=== PATIENT | male | born 1945 | race Two or more races ===

== ENCOUNTER 2020-09-09 09:52 | Outpatient (REF) | payer MEDICARE, SELFPAY ==
[2020-09-09 11:01] LABS: Estimated Average Glucose 103 mg/dL; Hemoglobin A1c % 5.2 %
[2020-09-09 11:21] LABS: Alanine Aminotransferase 14 U/L (0-40); Alkaline Phosphatase 58 U/L (39-117); Anion Gap 9 (12-20); Aspartate Amino Transferase 20 U/L (5-37); Bilirubin Total 0.8 mg/dL (0.0-1.0); Blood Urea Nitrogen 18 mg/dL (9-16); Calcium 9.2 mg/dL (8.4-10.2); Carbon Dioxide 30 mmol/L (22-29); Chloride 104 mmol/L (96-108); Estimated Glomerular Filt Rate > 60; Glucose Fasting 100 mg/dL (60-99); Potassium 5.1 mmol/l (3.3-5.1); Sodium 138 mmol/L (135-145); Total Protein 7.2 g/dL (6.5-8.0)
== END 2020-09-09 09:53 | disposition home or self-care (01) ==
LOC: HO.LAB 09:52
PROVIDERS: PCP Internal Medicine; Visit Provider Internal Medicine
DX: N40.0 Benign prostatic hyperplasia without lower urinary tract symptoms (principal); J45.909 Unspecified asthma, uncomplicated; E78.00 Pure hypercholesterolemia, unspecified; R73.01 Impaired fasting glucose
CPT/HCPCS: 80053; 83036

== ENCOUNTER 2020-10-15 13:25 | Outpatient (REF) | payer MEDICARE, SELFPAY | END 2020-10-15 13:26 | disposition home or self-care (01) | LOC: HO.HMGCLDS 13:25 | PROVIDERS: PCP Internal Medicine; Visit Provider Internal Medicine | DX: Z20.828 Contact with and (suspected) exposure to other viral communicable diseases (principal) | CPT/HCPCS: C9803; U0003 ==

== ENCOUNTER 2021-02-18 11:28 | Outpatient (REF) | payer MEDICARE, SELFPAY ==
--- NOTE | ~2021-02-18 | XR_ITS ---
EXAMINATION: XR KNEE, RIGHT CLINICAL INFORMATION: Arthritis COMPARISON: Previous x-ray February 2019 TECHNIQUE: Four views of the right knee. FINDINGS: Bone alignment is normal. No fracture or dislocation is seen. There is arthritis at the medial femoral tibial and patellofemoral joints with joint space narrowing and osteophyte formation. There is a small joint effusion. There is mild soft tissue arterial calcification. XR/XR knee RT 3V IMPRESSION: Mild arthritis similar to previous exam.
== END 2021-02-18 11:29 | disposition home or self-care (01) ==
LOC: HO.XRAY 11:28
PROVIDERS: PCP Internal Medicine; Visit Provider Physician Assistant
DX: M17.11 Unilateral primary osteoarthritis, right knee (principal)
CPT/HCPCS: 73562

== ENCOUNTER 2022-10-27 09:56 | Outpatient (REF) | payer MEDICARE, SELFPAY ==
--- NOTE | 2022-10-27 10:04 | ECG_ITS ---
Test Reason : PRE OP Blood Pressure : / mmHG Vent. Rate : 048 BPM Atrial Rate : 048 BPM P-R Int : 176 ms QRS Dur : 082 ms QT Int : 446 ms P-R-T Axes : 084 -10 270 degrees QTc Int : 398 ms Sinus bradycardia T wave abnormality, consider inferolateral ischemia Abnormal ECG When compared with ECG of 28-FEB-2017 15:22, T wave inversion now evident in Inferior leads T wave inversion now evident in Lateral leads Referred By: Karen South Electronically Signed By:MARKIE ELIZABETH MD
[2022-10-27 10:34] LABS: Basophils Percent Auto 0.4 % (0-2); Eosinophils Absolute Auto 0.1 X10*3/uL (0.0-0.4); Eosinophils Percent Auto 0.6 % (0-4); Hemoglobin 13.4 g/dl (14.0-18.0); Imm Gran Abs Auto 0.03 X10*3/uL (0.00-0.03); Imm Gran Pct Auto 0.4 % (0.0-0.4); MANUAL DIFF FLAG SCAN; Mean Corpuscular HGB Conc 31.5 g/dl (31.0-36.0); PLT CLUMP 1; Red Cell Distribution Width 12.5 % (11.0-16.0); SCAN SMEAR FLAG 1
[2022-10-27 10:36] LABS: Hematocrit 42.6 % (42.0-52.0); Lymphocytes Absolute Auto 1.2 X10*3/uL (1.2-4.9); Lymphocytes Percent Auto 14.9 % (20-40); Mean Corpuscular Hemoglobin 28.5 pg (27.0-33.0); Mean Corpuscular Volume 90.6 fL (80.0-98.0); Mean Platelet Volume 10.9 fL (9.4-12.4); Monocytes Absolute Auto 0.8 X10*3/uL (0.1-1.2); Neutrophils Percent Auto 73.7 % (45-73)
[2022-10-27 11:03] LABS: Platelet Count 199 X10*3/uL (160-400)
[2022-10-27 11:04] LABS: SLIDE REVIEW VERIFIED; White Blood Count 8.1 X10*3/uL (4.8-10.8)
[2022-10-27 11:05] LABS: Anion Gap 15 (12-20); Blood Urea Nitrogen 24 mg/dL (9-16); Calcium 9.8 mg/dL (8.4-10.2); Carbon Dioxide 27 mmol/L (22-29); Chloride 101 mmol/L (96-108); Estimated Glomerular Filt Rate > 60; Glucose Random 90 mg/dL (60-115); Potassium 4.8 mmol/L (3.3-5.1); Sodium 138 mmol/L (135-145)
== END 2022-10-27 09:57 | disposition home or self-care (01) ==
LOC: HO.LAB 09:56
PROVIDERS: PCP Internal Medicine; Visit Provider Nurse Practitioner Family
DX: Z01.818 Encounter for other preprocedural examination (principal); Z13.0 Encounter for screening for diseases of the blood and blood-forming organs and certain disorders involving the immune mechanism
CPT/HCPCS: 36415; 80048; 85025; 85610; 93005

== ENCOUNTER 2022-11-01 07:59 | Outpatient (REF) | payer OTHER, SELFPAY ==
[2022-11-01 08:48] LABS: COVID-19 Test Negative (Negative); IDNOW Serial# 16C4AD1C
== END 2022-11-01 08:00 | disposition home or self-care (01) ==
LOC: HO.LAB 07:59
PROVIDERS: Internal Medicine; PCP Internal Medicine; Visit Provider Nurse Practitioner Family
DX: Z20.822 Contact with and (suspected) exposure to COVID-19 (principal)
CPT/HCPCS: 87635; C9803

== ENCOUNTER → 2022-12-02 09:18 | Outpatient (REF) | payer OTHER, SELFPAY ==
--- NOTE | 2022-12-02 09:23 | CA_ITS ---
Acquisition Time: 2022-12-02 09:45:42 Total Exercise Time: 00:06:19 Test Indications: ABN EKG Medications: SEE CHART Protocol: COLLINS Max HR: 139 BPM 97% of Pred: 142 BPM Max BP: 162/066 mmHG Max Work Load: 7.4 METS Exercise stress test with exercise 6 min 19 sec of Collins protocol, achieving 97% MPHR, 7.4 METs, without anginal symptoms, with isolated PVC, with normotensive response to exercise, with T wave inversion V5-V6 at baseline which is present throughout test, borderline ST depression in those leads at peak not excluded. No other changes indicating ischemia. If further evaluation for ischemia is warranted, then recommned an exercise nuclear stress test. Test reviewed with Dr Gray Referred By: Karen South Overread By: JESSY LEE
== END ==
LOC: HO.CARD 09:18
PROVIDERS: Visit Provider Nurse Practitioner Family
DX: R94.31 Abnormal electrocardiogram [ECG] [EKG] (principal)
CPT/HCPCS: 93017

== ENCOUNTER → 2022-12-28 09:08 | Outpatient (BNVA) | payer OTHER, SELFPAY | PROVIDERS: PCP Internal Medicine; Referring Provider Internal Medicine; Visit Provider Internal Medicine | DX: R94.31 Abnormal electrocardiogram [ECG] [EKG] (principal); R94.39 Abnormal result of other cardiovascular function study | CPT/HCPCS: 99202 ==

== ENCOUNTER → 2023-01-05 08:12 | Outpatient (REF) | payer OTHER, SELFPAY ==
--- NOTE | ~2023-01-05 | NM_ITS ---
EXERCISE MYOCARDIAL PERFUSION STUDY INDICATION: Abnormal EKG, assess for coronary disease and ischemia TECHNIQUE: The patient was brought in for an exercise perfusion study on 01/05/2023. Patient performed exercise as per [facility] protocol and was injected 25 mCi of sestamibi once target heart rate was achieved. Images were obtained using the SPECT gamma camera interlaced with the gating device. Images were obtained in supine position. Resting perfusion study was performed on 01/06/2023. Patient was administered 25 mCi of sestamibi intravenously at rest. Images were then obtained in supine position. Images were processed with the software and compared side to side in short axis, horizontal long axis and vertical long axis views. Total DLP 81mGy-cm. FINDINGS: Raw images were reviewed. The stress perfusion study showed mildly diminished tracer uptake along the inferolateral wall. There is improvement with CT attenuation correction suggestive of diaphragmatic attenuation artifact. The gated study shows mildly diminished LV systolic function with calculated LVEF of 48%. LV cavity is normal in size. The gated study shows normal wall thickening and contraction of segments. Resting study shows mildly diminished tracer uptake along the inferolateral wall. With CT attenuation corrected, there is improvement suggesting diaphragmatic attenuation artifact. Gating at rest reveals normal wall motion with ejection fraction at 66%. The findings are consistent with no clear reversible or fixed perfusion defects. NM/NM cardiolite stress test IMPRESSION: 1. Myocardial perfusion imaging study shows likely normal myocardial perfusion. 2. Gated LVEF is 48% during stress and 64% during rest. Correlate with echocardiogram. 3. Transient ischemic dilatation not present. EKG component of the test reported separately.
--- NOTE | 2023-01-05 09:31 | CA_ITS ---
Acquisition Time: 2023-01-05 08:27:01 Total Exercise Time: 00:07:00 Test Indications: abn ekg, abn ett Medications: see chart Protocol: COLLINS Max HR: 129 BPM 90% of Pred: 142 BPM Max BP: 170/056 mmHG Max Work Load: 8.5 METS Exercise stress test with exercise 7 min of Collins protocol, achieving 90% MPHR, 8.5 METs, without anginal symptoms, with isolated PVCs, with normotenive response to exercise, with baseline EKGs showing ST/T wave abnormality inferiorly and slight T inversions V5-V6 then at peak exercise there is up to [address] depression inferiorly - nondiagnostic for ischemia due to baseline abn. Nuclear images pending. Test reviewed with Dr Rodriguez Referred By: Buck Gray Overread By: JESSY LEE
== END ==
LOC: HO.CARD 08:12
PROVIDERS: Visit Provider Internal Medicine
DX: R07.2 Precordial pain (principal); R94.31 Abnormal electrocardiogram [ECG] [EKG]
CPT/HCPCS: 78452; 93017; A9500

== ENCOUNTER → 2023-01-19 08:05 | Outpatient (REF) | payer OTHER, SELFPAY ==
--- NOTE | 2023-01-19 08:07 | CA_ITS ---
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 Study Quality: Adequate ECG Rhythm: Bradycardia Conclusions: - The left ventricular systolic function is normal. The calculated ejection fraction is 60% by biplane method. - No obvious valvular pathology seen on this study. - There is mild dilatation of the ascending aorta measuring 4.20 cm. Findings Left Ventricle Normal left ventricular cavity size. The left ventricular systolic function is normal. The calculated ejection fraction is 60% by biplane method. There is no evidence of regional wall motion abnormalities. Diastolic function is normal for age. There is mild septal asymmetric hypertrophy. LV peak GLS 18.7%. Right Ventricle Normal right ventricular cavity size and systolic function. Atria Both atria are normal in size. Aortic Valve There is a normal trileaflet aortic valve. There is no aortic valve stenosis. There is no aortic valve regurgitation. Mitral Valve The mitral valve appears normal. There is no mitral valve regurgitation. There is no mitral valve stenosis. Pulmonic Valve The pulmonic valve is likely normal. Tricuspid Valve There is trace tricuspid valve regurgitation. There is no evidence of pulmonary hypertension. Great Vessels There is mild dilatation of the ascending aorta measuring 4.20 cm. Venous The inferior vena cava is normal in size and collapses greater than 50% with inspiration. Pericardium/Pleural There is no evidence of pericardial effusion. Prior Study Comparison Changes noted compared to prior study dated: 05/20/2011. Increase in ascending aortic size. Recommendations, Care & Conclusions No obvious valvular pathology seen on this study. Measurements 2D Linear Measurements IVSd: 1.29 0.6-0.9/0.6-1.0 cm LVIDd: 4.62 3.9-5.3/4.2-5.9 cm LVIDd Index: 2.85 2.4-3.2/2.2-3.1 cm/m2 LVIDs: 2.97 2.0-3.6 cm LVPWd: 0.71 0.7-1.1 cm LA Diam: 3.80 2.7-3.8/3.0-4.0 cm LAIDs Index: 2.35 1.5-2.3 cm/m2 LV Mass: 199.03 67-162/88-224 g LV Mass Index: 122.86 43-95/49-115 g/m2 LVOT Diam: 2.20 3.0+(-)1.3 cm 2D Systolic Function EF 4C: 64.30 >55% EF 2C: 55.10 >55% EF BiP: 60.10 >55% Mitral Valve MV Pk E: 0.63 MV PK A: 0.76 MV Decel Time: 183.00 E/A: 0.80 E'Lateral: 7.72 E'Medial: 4.79 E/E' Med: 13.20 E/E' Lat: 8.20 PHT: 54.00 MVA PHT: 4.07 Decel Bryan: 3.44 Aortic Valve AoV Pk Mahad: 1.40 AoV Mn Mahad: 0.95 AoV VTI: 0.34 AoV Pk Grad: 8.00 Aov Mn Grad: 4.00 OJ Cont.VTI: 2.27 LVOT LVOT Pk Mahad: 0.85 LVOT Mn Mahad: 0.57 LVOT VTI: 0.20 LVOT Pk Grad: 3.00 LVOT Mn Grad: 2.00 LVOT Diam: 2.20 LVOT Area: 3.80 Diastolic Function MV Pk E: 0.63 MV Pk A: 0.76 E/A: 0.80 E'Medial: 4.79 E/E' Med: 13.20 E' Laterial: 7.72 E/E' Lat: 8.20 Right Ventricle TAPSE (mm): 24.80 TVS' Mahad: 14.00 Tricuspid Valve RA Press: 3.00 Great Vessels Aorta Sinus of Valsalva: 3.30 2.0-3.5 cm Ao Asc: 4.30 2.1-3.4 cm Pulmonary Veins Pulm Vein S/D 1.10 Pulmonary Valve PV Pk Mahad: 0.77 Peak PV Grad: 2.00 Updated in Other Vendor System with Status of Final Buck Gray MD electronically signed on 01/21/2023 2:43:14 PM with status of Final
== END ==
LOC: HO.CARD 08:05
PROVIDERS: Visit Provider Internal Medicine
DX: I25.10 Atherosclerotic heart disease of native coronary artery without angina pectoris (principal); R94.31 Abnormal electrocardiogram [ECG] [EKG]
CPT/HCPCS: 93306; 93356

== ENCOUNTER → 2023-03-03 09:46 | Outpatient (BNVA) | payer OTHER, SELFPAY | PROVIDERS: PCP Internal Medicine; Referring Provider Internal Medicine; Visit Provider Internal Medicine | DX: R94.31 Abnormal electrocardiogram [ECG] [EKG] (principal); R94.39 Abnormal result of other cardiovascular function study; I25.10 Atherosclerotic heart disease of native coronary artery without angina pectoris; I71.21 Aneurysm of the ascending aorta, without rupture | CPT/HCPCS: 99212 ==

== ENCOUNTER 2023-05-12 21:01 | Emergency (ER) | payer OTHER, SELFPAY ==
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
[2023-05-12 21:03] VITALS: BP 162/102; PULSE 75; RESP 18; TEMP 36.1; O2SAT 97; BMI 21.6
[2023-05-12 22:32] VITALS: BP 167/78; PULSE 65; RESP 18; TEMP 36.6; O2SAT 99
[2023-05-13] VITALS: BP 150/76; PULSE 61; RESP 16; TEMP 36.6; O2SAT 99
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
[2023-05-13] MEDS: Acetaminophen 325 MG TABLET 975 MG PO (01:16)
[2023-05-13] MEDS: Diphth,Pertus(ACell),Tet Adult 0.5 ML SYRINGE IM (01:17)
== END 2023-05-13 01:57 | disposition home or self-care (01) ==
PROVIDERS: Emergency Provider Internal Medicine; PCP Internal Medicine
DX: S40.211A Abrasion of right shoulder, initial encounter (principal); S51.811A Laceration without foreign body of right forearm, initial encounter; V49.40XA Driver injured in collision with unspecified motor vehicles in traffic accident, initial encounter; Y93.9 Activity, unspecified; Y92.410 Unspecified street and highway as the place of occurrence of the external cause; Y99.9 Unspecified external cause status; Z87.891 Personal history of nicotine dependence; Z23 Encounter for immunization
CPT/HCPCS: 73030; 90471; 90715; 99284; 99285

== ENCOUNTER → 2023-05-16 12:28 | Outpatient (BNVA) | payer OTHER, SELFPAY | PROVIDERS: PCP Internal Medicine; Visit Provider Physician Assistant | DX: S40.011A Contusion of right shoulder, initial encounter (principal); S51.811A Laceration without foreign body of right forearm, initial encounter | CPT/HCPCS: 99202 ==

== ENCOUNTER 2023-06-13 15:19 | Outpatient (AMB) | payer OTHER, SELFPAY ==
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
[2023-06-13 15:51] VITALS: BMI 21.6
== END 2023-06-13 16:18 | disposition home or self-care (01) ==
PROVIDERS: PCP Internal Medicine; Visit Provider Physician Assistant
DX: S40.011A Contusion of right shoulder, initial encounter (principal); M25.511 Pain in right shoulder
CPT/HCPCS: 20610; 99214

== ENCOUNTER → 2023-06-13 15:19 | Outpatient (BNVA) | payer OTHER, SELFPAY | PROVIDERS: PCP Internal Medicine; Visit Provider Physician Assistant | DX: S40.011A Contusion of right shoulder, initial encounter (principal); M25.511 Pain in right shoulder | CPT/HCPCS: 20610; 99212; J1040 ==

== ENCOUNTER 2023-07-04 11:16 | Outpatient (RCR) | payer OTHER, SELFPAY | END 2023-09-23 11:06 | disposition home or self-care (01) | LOC: HO.PT 11:16 | PROVIDERS: PCP Internal Medicine; Visit Provider Physician Assistant | DX: S40.011D Contusion of right shoulder, subsequent encounter (principal) ==

== ENCOUNTER 2023-09-08 10:03 | Outpatient (AMB) | payer OTHER, SELFPAY ==
--- NOTE | 2023-09-08 10:06 | MHC.OFFVIS ---
Intake Vital Signs 09/08/23 10:08 Height 5 ft 5 in Weight 128 lb 4.944 oz BMI 21.3 BP 140/72 H Blood Pressure Location Lt brachial Position Sitting Pulse 52 Pulse Source Monitor Intake Visit Reasons: 6 month follow up Intake Note: 6 month f/u Securities Adviser Required: Yes Securities Adviser Language: Laundry Or Dry Cleaners Counter Clerk Name: raymundo goff [id number] Allergies No Known Allergies Allergy (Verified 09/08/23 10:12) Medication List - Last Reconciled 09/08/23 by Rozina Martino NP-C acetaminophen (Tylenol) 650 mg (2 x 325 mg) PO Q6H PRN albuterol sulfate 90 mcg/actuation (Ventolin HFA) 2 puffs inhalation QID PRN ibuprofen 600 mg PO Q8H 15 days lisinopril 10 mg PO DAILY oxybutynin chloride ER 10 mg PO DAILY tamsulosin 0.4 mg PO DAILY HPI 6 month follow up HPI Details Blake is a 78-year-old male with past medical history of hyperlipidemia, impaired fasting glucose, asthma, abnormal EKG, abnormal nuclear stress test, presumed coronary artery disease, dilated ascending aorta who presents for follow-up. Today he reports he has been feeling well with no concerning symptoms. He denies getting chest discomfort at rest or with activity. He denies shortness of breath, palpitations, presyncope, syncope, falls. He does report some balance issues but does not need a cane or walker. No PND, orthopnea or edema. He does home exercises and tells me he rides his bike and walks routinely. He is no longer on statin and says he was told it was damaging to his body. He is not on aspirin as he was having bruising issues. Certified teradata architect used. [facility] Medical History Ascending aortic aneurysm Atherosclerotic cardiovascular disease Abnormal stress ECG Impaired glucose tolerance Epididymo-orchitis SNHL (sensory-neural hearing loss), asymmetrical Hemorrhoid Hypercholesterolemia Vitamin D deficiency Asthma BPH (benign prostatic hyperplasia) Surgical History Anal fistula History of cataract surgery Family History Father No problems noted. Mother No problems noted. Social History Housing: Apartment Alcohol intake: never Patient Tobacco Use Status: Former Tobacco user Quit Date: 1998 Tobacco use type: Cigarette Years Smoked: 25 +/- e-Cigarette/Vaping Use: Never Used Second Hand Smoke Exposure: No Current occupational status: retired Cognitive needs: No Hearing needs: No Vision needs: Yes Review of Systems Const All systems reviewed & are unremarkable except as noted in HPI and below ENT Details: Balance issues at times Denies dizziness Card Denies chest pain, Denies chest pain at rest, Denies chest pain with activity, Denies rapid heart rate, Denies pedal edema, Denies edema, Denies leg edema, Denies lightheadedness, Denies palpitations, Denies dyspnea, Denies dyspnea on exertion and Denies orthopnea Resp Denies cough, Denies dyspnea and Denies dyspnea on exertion GI Denies hematochezia and Denies change in stool character Musc Denies abnormal gait, Denies limited range of motion, Denies muscle cramps, Denies muscle weakness, Denies numbness, Denies radiating pain into limb, Denies stiffness and Denies tingling Neuro Denies abnormal gait, Denies dizziness, Denies numbness and Denies tingling Endo Denies palpitations Physical Exam Vital Signs: Last Vital Signs BP 140/72 H 09/08/23 10:08 BMI result Body Mass Index 21.3 Const General: cooperative, healthy appearing, comfortable and no acute distress Orientation/consciousness: patient oriented x3 Neck Neck: Yes normal visual inspection and Yes no JVD Carotids: normal carotid upstroke Resp Effort & Inspection: normal respiratory effort Auscultation: clear to auscultation bilaterally, no crackles, no rales, no rhonchi and no wheezes Cardio Jugular venous distension: no JVD Rate: regular rate Rhythm: regular rhythm Heart sounds: S1 normal heart sound present, S2 normal heart sound present, no murmurs and no rubs Neuro General: patient oriented x3 Extrem General: Yes normal to inspection and No no pedal edema Psych Appearance: grossly normal Mental Status: mental status grossly normal Speech and movement: Normal speech and movement present Office Procedures EKG Details: Today, read by me, sinus bradycardia, poor R-wave progression, can not exclude prior septal infarct, rate 52, QTC 377 millisecond [id number], Complete Assessment & Plan Assessment & Plan (1) Atherosclerotic cardiovascular disease: Code(s): I25.10 - Atherosclerotic heart disease of [place] coronary artery without angina pectoris Plan: Presumed stable coronary artery disease. Prior EKGs with septal Q-wave. Echocardiogram done 01/19/2023 shows EF 60%, no valve abnormalities, mild dilation of the ascending aorta 4.2 cm. No regional wall motion abnormalities. Notes indicate prior nuclear stress test showing slight decreased uptake in the inferior lateral wall that improved on CT attenuation correction, felt to be normal but with EKG findings could also indicate mild fixed inferior lateral defect from prior nontransmural infarct. Today he reports feeling well with no anginal sounding symptoms. He reports good activity tolerance and is able to ride his bike and walk routinely for exercise. He had been on aspirin but stopped due to easy bruising. He was on rosuvastatin but states he was told to stop it as it was damaging to his body. EKG done today showing sinus bradycardia, septal Q-wave, rate 52. Blood pressure is elevated today and on a other blood pressure checks as well. Will be adding lisinopril 10 mg daily. Basic metabolic profile and lipid profile in 1 week. Will evaluate for restart of statin therapy if lipid profile warrants. Signs and symptoms of angina reviewed. Cardiology follow-up in 6 months, sooner if needed (2) Ascending aortic aneurysm: Code(s): I71.21 - Aneurysm of the ascending aorta, without rupture Qualifiers: Presence of rupture: without rupture Qualified Code(s): I71.21 - Aneurysm of the ascending aorta, without rupture Plan: Mildly dilated ascending aorta 4.2 cm on last echocardiogram. Will plan for recheck of echo prior to his next visit. Blood pressure not optimal. Being treated as above. (3) Abnormal EKG: Code(s): R94.31 - Abnormal electrocardiogram [ECG] [EKG] Plan: Septal Q (4) Hypertension: Code(s): I10 - Essential (primary) hypertension Qualifiers: Hypertension type: unspecified Qualified Code(s): I10 - Essential (primary) hypertension Plan: Noted to have recent elevation in blood pressures with systolic ranging 140-160. Initially 140/72 today, recheck done by me 152/78. With dilated ascending aorta he needs better blood pressure control. He has a history of impaired fasting glucose. His heart rate is low on EKG at 52. Will start on lisinopril 10 mg daily. Will check BMP in 1 week. Office blood pressure check in 2 weeks. (5) Hypercholesterolemia: Code(s): E78.00 - Pure hypercholesterolemia, unspecified Plan: LDL goal less than 100, ideally less than 70. Will be checking fasting lipids as above. He is not on statin therapy at present Orders: Orders Lipid Panel Today E78.00 - Pure hypercholesterolemia, unspecified Basic Metabolic Panel Today I10 - Essential (primary) hypertension Medications: New lisinopril 10 mg PO DAILY 30 tabs 5RF Coding Level of Care Code Est Pt Level 4 (52483) Diagnoses Atherosclerotic cardiovascular disease I25.10 Aneurysm of ascending aorta without rupture I71.21 Presence of rupture: without rupture Abnormal EKG R94.31 Hypertension, unspecified type I10 Hypertension type: unspecified Hypercholesterolemia E78.00 CPT Codes EKG - CPT: 41361-[id number], Complete ([id number]) Time Spent (min) 28
[2023-09-08 10:08] VITALS: BP 140/72; PULSE 52; BMI 21.3
== END 2023-09-08 11:00 | disposition home or self-care (01) ==
PROVIDERS: PCP Internal Medicine; Visit Provider Nurse Practitioner Family
DX: I25.10 Atherosclerotic heart disease of native coronary artery without angina pectoris (principal); I71.21 Aneurysm of the ascending aorta, without rupture; R94.31 Abnormal electrocardiogram [ECG] [EKG]; I10 Essential (primary) hypertension; E78.00 Pure hypercholesterolemia, unspecified
CPT/HCPCS: 93010; 99214

== ENCOUNTER → 2023-09-08 10:03 | Outpatient (BNVA) | payer OTHER, SELFPAY | PROVIDERS: PCP Internal Medicine; Visit Provider Nurse Practitioner Family | DX: I25.10 Atherosclerotic heart disease of native coronary artery without angina pectoris (principal); I71.21 Aneurysm of the ascending aorta, without rupture; R94.31 Abnormal electrocardiogram [ECG] [EKG]; I10 Essential (primary) hypertension; E78.00 Pure hypercholesterolemia, unspecified | CPT/HCPCS: 93005; 99212 ==

== ENCOUNTER → 2023-09-22 08:19 | Outpatient (BNVA) | payer OTHER, SELFPAY | PROVIDERS: PCP Internal Medicine; Visit Provider Nurse Practitioner Family ==

== ENCOUNTER 2024-02-02 08:56 | Outpatient (AMB) | payer OTHER, SELFPAY ==
[2024-02-02 09:25] VITALS: BP 140/60; PULSE 60; TEMP 36.5; O2SAT 96; BMI 22.8
--- NOTE | 2024-02-02 09:25 | AM.OFFWIN_ITS ---
Intake Vital Signs 02/02/24 09:25 Height 5 ft 5 in Weight 137 lb BMI 22.8 BP 140/60 H Blood Pressure Location Lt brachial Position Sitting Pulse 60 Pulse Source Pulse Oximeter Temp 97.7 F Temp Source Temporal Artery Scan Pulse Oximetry (%) 96 Oxygen Delivery Method Room Air Intake Visit Reasons: EP chest congestion cough few weeks Intake Note: pt is here today for chest congestion cough started 3 weeks ago Patient Tobacco Use Status: Former Tobacco user Quit Date: 1998 Allergies No Known Allergies Allergy (Verified 02/02/24 09:26) Do you need a note to return to daycare/school/sports/work: No HPI HPI Comments History of Present Illness Details 78 y/o male patient who presents to walk in clinic with c/o cough and chest congestion x 3 weeks. Reports wheezing and pain with breathing in. Denies fevers, chills, nausea or vomiting. H/o Asthma, well controlled on Albuterol inhaler. [facility] Medical History Ascending aortic aneurysm Atherosclerotic cardiovascular disease Abnormal stress ECG Impaired glucose tolerance Epididymo-orchitis SNHL (sensory-neural hearing loss), asymmetrical Hemorrhoid Hypercholesterolemia Vitamin D deficiency Asthma BPH (benign prostatic hyperplasia) Surgical History Anal fistula History of cataract surgery Family History Father No problems noted. Mother No problems noted. Social History Housing: Apartment Alcohol intake: never Patient Tobacco Use Status: Former Tobacco user Quit Date: 1998 Tobacco use type: Cigarette Years Smoked: 25 +/- e-Cigarette/Vaping Use: Never Used Second Hand Smoke Exposure: No Current occupational status: retired Cognitive needs: No Hearing needs: No Vision needs: Yes Review of Systems Const All systems reviewed & are unremarkable except as noted in HPI and below Physical Exam Vital Signs: Last Vital Signs Temp 97.7 F 02/02/24 09:25 Pulse 60 02/02/24 09:25 BP 140/60 H 02/02/24 09:25 Pulse Ox 96 02/02/24 09:25 Oxygen Delivery Method Room Air 02/02/24 09:25 BMI result Body Mass Index 22.8 Const General: comfortable and no acute distress Orientation/consciousness: patient oriented x3 HEENT Head: Yes normocephalic Ears: external ears normal and TM's normal bilaterally General nose exam: Normal nasal mucous membranes and turbinates present Face and sinus: Yes sinuses nontender Mouth: moist mucous membranes Throat: Yes posterior oropharynx normal Resp Effort & Inspection: normal respiratory effort, able to speak in complete s entences and Actively coughing Auscultation: no crackles, no rales, rhonchi and wheezes Cardio Rate: regular rate Rhythm: regular rhythm Neuro General: patient oriented x3 and gait normal Psych Speech and movement: Clear speech present Office Procedures Nebulizer Treatment Nebulizer Treatment [id number]/MDI RX initial, or Nebulizer Subsequent Treatment Office Meds ipratropium 0.5 mg-albuterol 3 mg (2.5 mg base)/3 mL nebulization soln Performing Provider: Kaitlynn Torres NP Performing Location: [facility] Administered by: Kaitlynn Torres NP on 02/02/24 10:22 Dose Route Admin Location Dispensed Lot Number Expiration Date [place] Pharmacist Technician 3 mL inhalation 3 mL [id number] 08/28/24 5962-7875-88 [facility] Assessment & Plan Assessment & Plan (1) Cough in adult: Code(s): R05.9 - Cough, unspecified Plan: - Take medicine as prescribed - Albuterol inhaler q4-6 hrs (2) Wheezing on auscultation: Code(s): R06.2 - Wheezing Plan: - Take medicine as prescribed - Albuterol inhaler q4-6 hrs - Nebulizer Tx in the office. Orders: Orders AMB Nebulizer Treatment Today R05.9 - Cough, unspecified, R06.2 - Wheezing SARS-CoV2/FLU/RSV Today R05.9 - Cough, unspecified, R06.2 - Wheezing Medications: New prednisone 50 mg PO DAILY 5 days 5 tabs 0RF R05.9 - Cough, unspecified, R06.2 - Wheezing azithromycin 500 mg PO DAILY 3 days 3 tabs 0RF R05.9 - Cough, unspecified, R06.2 - Wheezing Refilled albuterol sulfate 90 mcg/actuation (Ventolin HFA) 2 puffs inhalation QID PRN 8.5 grams 0RF shortness of breath or wheezing R05.9 - Cough, unspecified, R06.2 - Wheezing Coding Level of Care Code Est Pt Level 3 (73487) Diagnoses Cough in adult R05.9 Wheezing on auscultation R06.2 CPT Codes Nebulizer Treatment - Nebulizer Treatment, initial or subsequent: 88142- Nebulizer/MDI RX initial, or Nebulizer Subsequent Treatment ([id number]) Time Spent (min) 15
== END 2024-02-02 10:36 | disposition home or self-care (01) ==
PROVIDERS: PCP Internal Medicine; Visit Provider Nurse Practitioner Family
DX: R06.2 Wheezing (principal); R05.9 Cough, unspecified
CPT/HCPCS: 94640; 99213; J7620

== ENCOUNTER 2024-02-02 10:18 | Outpatient (REF) | payer OTHER, SELFPAY ==
[2024-02-02 14:10] LABS: Influenza A PCR NEGATIVE (Negative); Influenza B PCR NEGATIVE (Negative); Resp Syncy Virus RNA Qual PCR NEGATIVE (Negative); SARS COV2 PCR INHOUSE NEGATIVE (Negative)
== END 2024-02-02 10:19 | disposition home or self-care (01) ==
LOC: HO.LAB 10:18
PROVIDERS: Visit Provider Nurse Practitioner Family
DX: Z11.52 Encounter for screening for COVID-19 (principal); Z20.822 Contact with and (suspected) exposure to COVID-19; R05.9 Cough, unspecified; R06.2 Wheezing
CPT/HCPCS: 0241U

== ENCOUNTER 2024-02-09 08:54 | Outpatient (AMB) | payer OTHER, SELFPAY ==
[2024-02-09 09:21] VITALS: BP 130/62; PULSE 65; BMI 22.7
--- NOTE | 2024-02-09 09:21 | A.OFFVIS_ITS ---
Intake Vital Signs 02/09/24 09:21 Height 5 ft 5 in Weight 136 lb 10.986 oz BMI 22.7 BP 130/62 Blood Pressure Location Lt brachial Position Sitting Pulse 65 Pulse Source Pulse Oximeter Intake Visit Reasons: 6 month follow up Assembler Production Line Required: Yes Assembler Production Line Language: Order Control Clerk Blood Bank Name: raymundo tinoe [id number] Allergies No Known Allergies Allergy (Verified 02/09/24 09:24) Medication List - Last Reconciled 02/09/24 by Rozina Martino NP-C acetaminophen (Tylenol) 650 mg (2 x 325 mg) PO Q6H PRN albuterol sulfate 90 mcg/actuation (Ventolin HFA) 2 puffs inhalation QID PRN lisinopril 10 mg PO DAILY oxybutynin chloride ER 10 mg PO DAILY prednisone 50 mg PO DAILY 5 days HPI 6 month follow up HPI Details Blake is a 78-year-old male with past medical history of hyperlipidemia, impaired fasting glucose, asthma, abnormal EKG, abnormal nuclear stress test, presumed coronary artery disease, dilated ascending aorta who presents for follow-up. Today he reports he has been feeling very well. He denies any concerning symptoms. No chest discomfort, shortness of breath, lightheadedness, palpitations, presyncope, syncope, PND, orthopnea or edema. Now that the weather is improving. He plans to restart riding his bike routinely. He does walk frequently and says he tolerates it well. Taking meds as directed. Certified court interpreter used. [facility] Medical History Ascending aortic aneurysm Atherosclerotic cardiovascular disease Abnormal stress ECG Impaired glucose tolerance Epididymo-orchitis SNHL (sensory-neural hearing loss), asymmetrical Hemorrhoid Hypercholesterolemia Vitamin D deficiency Asthma BPH (benign prostatic hyperplasia) Surgical History Anal fistula History of cataract surgery Family History Father No problems noted. Mother No problems noted. Social History Housing: Apartment Alcohol intake: never Patient Tobacco Use Status: Former Tobacco user Quit Date: 1998 Tobacco use type: Cigarette Years Smoked: 25 +/- e-Cigarette/Vaping Use: Never Used Second Hand Smoke Exposure: No Current occupational status: retired Cognitive needs: No Hearing needs: No Vision needs: Yes Review of Systems Const All systems reviewed & are unremarkable except as noted in HPI and below ENT Denies dizziness Card Denies chest pain, Denies chest pain at rest, Denies chest pain with activity, Denies rapid heart rate, Denies pedal edema, Denies edema, Denies leg edema, Denies lightheadedness, Denies palpitations, Denies dyspnea, Denies dyspnea on exertion and Denies orthopnea Resp Denies cough, Denies dyspnea and Denies dyspnea on exertion GI Denies hematochezia and Denies change in stool character Musc Denies abnormal gait, Denies limited range of motion, Denies muscle cramps, Denies muscle weakness, Denies numbness, Denies radiating pain into limb, Denies stiffness and Denies tingling Neuro Denies abnormal gait, Denies dizziness, Denies numbness and Denies tingling Endo Denies palpitations Physical Exam Vital Signs: Last Vital Signs Pulse 65 02/09/24 09:21 BP 130/62 02/09/24 09:21 BMI result Body Mass Index 22.7 Const General: cooperative, healthy appearing, comfortable and no acute distress Orientation/consciousness: patient oriented x3 Neck Neck: Yes normal visual inspection and Yes no JVD Resp Effort & Inspection: normal respiratory effort Auscultation: clear to auscultation bilaterally, no crackles, no rales, no rhonchi and no wheezes Cardio Jugular venous distension: no JVD Rate: regular rate Rhythm: regular rhythm Heart sounds: S1 normal heart sound present, S2 normal heart sound present, no murmurs and no rubs Neuro General: patient oriented x3 Extrem General: Yes normal to inspection, No no pedal edema and No calf tenderness Psych Appearance: grossly normal Mental Status: mental status grossly normal Speech and movement: Normal speech and movement present Assessment & Plan Assessment & Plan (1) Atherosclerotic cardiovascular disease: Code(s): I25.10 - Atherosclerotic heart disease of [place] coronary artery without angina pectoris Plan: Presumed coronary artery disease, stable condition. Prior EKGs with septal Q- wave. Echocardiogram done 01/19/2023 shows EF 60%, no valve abnormalities, mild dilation of the ascending aorta 4.2 cm. No regional wall motion abnormalities. Notes indicate prior nuclear stress test showing slight decreased uptake in the inferior lateral wall that improved on CT attenuation correction, felt to be normal but with EKG findings could also indicate mild fixed inferior lateral defect from prior nontransmural infarct. A nuclear stress test was done on 01/06/2023 showing likely normal myocardial perfusion imaging. EKG done last visit showing sinus bradycardia, septal Q-wave, rate 52. Today he reports feeling well with no anginal sounding symptoms. He reports good activity tolerance and walks frequently. He plans to resume bike riding now that the weather has improved. He had been on aspirin but stopped due to easy bruising. He was on rosuvastatin but states he was told to stop it as it was damaging to his body. He is on lisinopril 10 mg daily for blood pressure control. Will check labs today including CMP, CBC and lipids. Will evaluate for restart of statin therapy if lipid profile warrants. Signs and symptoms of angina reviewed. Cardiology follow-up in 6 months, sooner if needed (2) Ascending aortic aneurysm: Code(s): I71.21 - Aneurysm of the ascending aorta, without rupture Qualifiers: Presence of rupture: without rupture Qualified Code(s): I71.21 - Aneurysm of the ascending aorta, without rupture Plan: Mildly dilated ascending aorta 4.2 cm on last echocardiogram. Will plan for r echeck of echo prior to his next visit. (3) Abnormal EKG: Code(s): R94.31 - Abnormal electrocardiogram [ECG] [EKG] Plan: Septal Q (4) Hypertension: Code(s): I10 - Essential (primary) hypertension Qualifiers: Hypertension type: unspecified Qualified Code(s): I10 - Essential (primary) hypertension Plan: Blood pressure in the normal range today, 130/62. No med changes made. (5) Hypercholesterolemia: Code(s): E78.00 - Pure hypercholesterolemia, unspecified Plan: LDL goal less than 100, ideally less than 70. Will be checking fasting lipids as above. He is not on statin therapy at present Plan Time spent on chart review, documentation, interview and assessment Orders: Orders Comprehensive Met. Panel Today I25.10 - Atherosclerotic heart disease of [place] coronary artery without angina pectoris Complete Blood Count Auto Diff Today I25.10 - Atherosclerotic heart disease of [place] coronary artery without angina pectoris CA echo transthoracic complete 07/25/24 I25.10 - Atherosclerotic heart disease of [place] coronary artery without angina pectoris, I71.21 - Aneurysm of the ascending aorta, without rupture Coding Level of Care Code Est Pt Level 4 (52309) Diagnoses Atherosclerotic cardiovascular disease I25.10 Aneurysm of ascending aorta without rupture I71.21 Presence of rupture: without rupture Abnormal EKG R94.31 Hypertension, unspecified type I10 Hypertension type: unspecified Hypercholesterolemia E78.00 Time Spent (min) 28
== END 2024-02-09 09:48 | disposition home or self-care (01) ==
PROVIDERS: PCP Internal Medicine; Visit Provider Nurse Practitioner Family
DX: I25.10 Atherosclerotic heart disease of native coronary artery without angina pectoris (principal); I71.21 Aneurysm of the ascending aorta, without rupture; R94.31 Abnormal electrocardiogram [ECG] [EKG]; I10 Essential (primary) hypertension; E78.00 Pure hypercholesterolemia, unspecified
CPT/HCPCS: 99214

== ENCOUNTER 2024-02-09 08:54 | Outpatient (REF) | payer OTHER, SELFPAY ==
[2024-02-09 10:18] LABS: MANUAL DIFF FLAG NO
[2024-02-09 10:30] LABS: Basophils Percent Auto 0.3 % (0-2); Eosinophils Absolute Auto 0.1 X10*3/uL (0.0-0.4); Eosinophils Percent Auto 1.1 % (0-4); Hematocrit 38.2 % (42.0-52.0); Hemoglobin 12.2 g/dl (14.0-18.0); Imm Gran Abs Auto 0.17 X10*3/uL (0.00-0.03); Imm Gran Pct Auto 1.6 % (0.0-0.4); Lymphocytes Absolute Auto 1.7 X10*3/uL (1.2-4.9); Mean Corpuscular HGB Conc 31.9 g/dl (31.0-36.0); Mean Corpuscular Hemoglobin 28.6 pg (27.0-33.0); Mean Corpuscular Volume 89.7 fL (80.0-98.0); Mean Platelet Volume 9.4 fL (9.4-12.4); Monocytes Absolute Auto 1.1 X10*3/uL (0.1-1.2); Neutrophils Absolute Auto 7.7 x10*3/uL (2.0-8.3); Platelet Count 214 X10*3/uL (160-400); Red Blood Count 4.26 X10*6/uL (4.60-5.80); Red Cell Distribution Width 13.1 % (11.0-16.0); White Blood Count 10.8 X10*3/uL (4.8-10.8)
[2024-02-09 11:25] LABS: Alanine Aminotransferase 16 U/L (0-40); Albumin Level 3.8 g/dL (3.5-5.0); Alkaline Phosphatase 56 U/L (39-117); Anion Gap 12 (12-20); Aspartate Amino Transferase 21 U/L (5-37); Bilirubin Total 0.5 mg/dL (0.0-1.0); Blood Urea Nitrogen 18 mg/dL (9-16); Calcium 9.5 mg/dL (8.4-10.2); Carbon Dioxide 30 mmol/L (22-29); Chloride 101 mmol/L (96-108); Cholesterol 188 mg/dL (<200); Estimated Glomerular Filt Rate > 60; Glucose Random 100 mg/dL (60-115); HDL Cholesterol 71 mg/dL (>40); LDL Cholesterol Calculated 100 mg/dL (<100); Potassium 5.1 mmol/L (3.3-5.1); Sodium 138 mmol/L (135-145); Triglycerides 85 mg/dL (<150)
== END 2024-02-09 08:55 | disposition home or self-care (01) ==
LOC: HO.LAB 08:54
PROVIDERS: PCP Internal Medicine; Visit Provider Nurse Practitioner Family
DX: I25.10 Atherosclerotic heart disease of native coronary artery without angina pectoris (principal); I10 Essential (primary) hypertension; I71.21 Aneurysm of the ascending aorta, without rupture; R94.31 Abnormal electrocardiogram [ECG] [EKG]; E78.00 Pure hypercholesterolemia, unspecified; Z79.52 Long term (current) use of systemic steroids
CPT/HCPCS: 36415; 80053; 80061; 85025; 99212

== ENCOUNTER 2024-03-01 15:21 | Outpatient (AMB) | payer OTHER, SELFPAY ==
[2024-03-01 15:48] VITALS: BP 138/70; PULSE 59; O2SAT 96; BMI 22.5
--- NOTE | 2024-03-01 15:48 | A.OFFPC_ITS ---
Vital Signs 03/01/24 15:48 Height 5 ft 5 in Weight 135 lb BMI 22.5 BP 138/70 Blood Pressure Location Lt brachial Position Sitting Pulse 59 Pulse Source Pulse Oximeter Pulse Oximetry (%) 96 Oxygen Delivery Method Room Air Intake Visit Reasons: Follow up Intake Note: Patient is here to follow up Application Technical Designer Required: Yes Application Technical Designer Language: Colombian Allergies No Known Allergies Allergy (Verified 03/01/24 15:50) Medication List - Last Reconciled 03/01/24 by Nelson Blankenship MD acetaminophen (Tylenol) 650 mg (2 x 325 mg) PO Q6H PRN albuterol sulfate 90 mcg/actuation (Ventolin HFA) 2 puffs inhalation QID PRN budesonide 180 mcg/actuation (Pulmicort Flexhaler) 2 inhalations inhalation BID lisinopril 10 mg PO DAILY oxybutynin chloride ER 10 mg PO DAILY rosuvastatin (Crestor) 20 mg PO DAILY Tobacco use date assessed: 03/01/24 Fall risk assessment: No Falls in past year Last assessed Fall Risk: 03/01/24 Dental Screening Dental Screen Date: 03/01/24 Did you have a dental visit in the last 12 months?: No Did you have a dental problem in the last 6 months where you did not have access to dental care?: No HPI Follow up HPI Details 79-year-old male with a history of BPH a sthma hypertension hypercholesterolemia impaired glucose tolerance and coronary artery disease coming in for follow-up. Last seen in November 2020. Review of the notes in January 2024 follows up with Cardiology. Echocardiogram December 2022 EF 60% no valve abnormalities has some mild dilatation of the ascending aorta 4.2 cm nuclear stress test done December 2022 normal myocardial perfusion. On aspirin rosuvastatin but was discontinued. Lisinopril for blood pressure patient had a CT scan of the abdomen with a history of prostate cancer revealing mild prostatomegaly incidental finding of bilateral fat containing inguinal hernias l umbar degenerative disc disease slightly prominent para-aortic lymph nodes patient also follows up with orthopedics for shoulder pain right with a history of right forearm laceration had an injection done. fernanado [id number], cough and sob uses the albuterol everyday [facility] Medical History (Updated 03/01/24 @ 16:20 by Nelson Blankenship MD) Tinnitus, bilateral Plantar nerve lesion Constipated Abnormal EKG Abnormal stress ECG Ascending aortic aneurysm Atherosclerotic cardiovascular disease Impaired glucose tolerance Epididymo-orchitis SNHL (sensory-neural hearing loss), asymmetrical Hemorrhoid Hypercholesterolemia Vitamin D deficiency Asthma BPH (benign prostatic hyperplasia) Surgical History Anal fistula History of cataract surgery Family History Father No problems noted. Mother No problems noted. Social History Housing: Apartment Alcohol intake: never Patient Tobacco Use Status: Former Tobacco user Quit Date: 1998 Tobacco use type: Cigarette Years Smoked: 25 +/- e-Cigarette/Vaping Use: Never Used Second Hand Smoke Exposure: No Current occupational status: retired Cognitive needs: No Hearing needs: No Vision needs: Yes Questionnaire PHQ-9 Over the last 2 weeks, how often have you been bothered by any of the following problems? 1. Little interest or pleasure in doing things: not at all 2. Feeling down, depressed, or hopeless: not at all 3. Trouble falling or staying asleep, or sleeping too much: not at all 4. Feeling tired or having little energy: not at all 5. Poor appetite or overeating: not at all 6. Feeling bad about yourself - or that you are a failure or have let yourself or your family down: not at all 7. Trouble concentrating on things, such as reading the newspaper or watching television: not at all 8. Moving or speaking so slowly that other people could have noticed. Or the opposite - being so fidgety or restless that you have been moving around a lot more than usual: not at all 9. Thoughts that you would be better off or of hurting yourself in some way: not at all Total score: 0 Depression Screening Interpretation: Negative Depression Screening Done: Yes 19999 - PHQ-9 Billing: Yes Source: Developed by Drs. Carmine Griffin, Urszula Hidalgo, Cash Shepherd and colleagues, with an educational erin from [employer]. Thrive Questionnaire Date Thrive assessed: 10/25/22 AUDIT C Alcohol Use Questionnaire (AUDIT-C) 1. How often do you have a drink containing alcohol?: Never 3. How often do you have six or more drinks on one occasion?: Never Total Score: 0 PELON-7 AMB Questionnaire PELON-7 Date PELON - 7 assessed: 03/01/24 Feeling nervous, anxious, or on edge: 0 = Not at all Not being able to stop or control worryin = Not at all Worrying too much about different things: 0 = Not at all Trouble relaxin = Not at all Being so restless that it is hard to sit still: 0 = Not at all Becoming easily annoyed or irritable: 0 = Not at all Feeling afraid as if something awful might happen: 0 = Not at all Total PELON-7 score (0-4 normal; 5-9 mild; 10-14 moderate; 15-21 severe): 0 Source: Developed by Drs. Carmine Griffin, Urszula Hidalgo, Cash mathew nd colleagues, with an educational erin from [employer]. PELON-7 Assessment Billing PELON-7 Assessment Tool: PELON-7 Assessment [id number] Physical exam (Primary Care) Vital Signs: Last Vital Signs Pulse 59 03/01/24 15:48 BP 138/70 03/01/24 15:48 Pulse Ox 96 03/01/24 15:48 Oxygen Delivery Method Room Air 03/01/24 15:48 BMI result Body Mass Index 22.5 Tobacco/Smoking Status: Tobacco use Status Tobacco use date assessed 03/01/24 03/01/24 15:54 Patient Tobacco Use Status Former Tobacco user 03/01/24 15:54 Tobacco use type Cigarette 03/01/24 15:54 e-Cigarette/Vaping Use Never Used 03/01/24 15:54 PHQ-9: PHQ-9 Score PHQ-9: Total score 0 03/01/24 15:54 Depression Screening Interpretation: Negative Thrive Assessment: Date of Thrive Assessment Date Thrive assessed 10/25/22 03/01/24 15:54 Const General: alert; No acute distress Eyes Conjunctivae: conjunctivae normal Resp Auscultation: clear to auscultation bilaterally Cardio Rate: regular rate Rhythm: regular rhythm GI Inspection: Yes normal to inspection Extrem General: Yes normal to inspection and No edema Assessment and Plan Assessment & Plan (1) Bilateral inguinal hernia: Code(s): K40.20 - Bilateral inguinal hernia, without obstruction or gangrene, not specified as recurrent Plan: Avoid heavy lifting (2) Hypertension: Code(s): I10 - Essential (primary) hypertension Qualifiers: Hypertension type: unspecified Qualified Code(s): I10 - Essential (primary) hypertension Plan: Continue with blood pressure medication. Decrease salt intake and exercise takes lisinopril 10 mg once a day (3) Ascending aortic aneurysm: Comment: December 2022 Code(s): I71.21 - Aneurysm of the ascending aorta, without rupture Qualifiers: Presence of rupture: without rupture Qualified Code(s): I71.21 - Aneurysm of the ascending aorta, without rupture Plan: Continue to monitor. (4) Atherosclerotic cardiovascular disease: Code(s): I25.10 - Atherosclerotic heart disease of [place] coronary artery without angina pectoris Plan: Control the cholesterol, weight, blood pressure (5) Impaired glucose tolerance: Code(s): R73.02 - Impaired glucose tolerance (oral) Plan: Decrease the amount of carbohydrate intake, pasta, bread, rice and potatoes are all sugar and that is aside from all the sweet stuff, remember that fruits are good but they are Sweet also. (6) Hypercholesterolemia: Code(s): E78.00 - Pure hypercholesterolemia, unspecified Plan: Avoid fried foods, chicken skin, eggs, butter margarine, pastries and meat. Be it pork or beef they have a lot of cholesterol LDL goal of less than 70 and triglyceride of less than 150. (7) Asthma: Code(s): J45.909 - Unspecified asthma, uncomplicated Qualifiers: Asthma severity: mild Asthma persistence: intermittent Asthma complication type: uncomplicated Qualified Code(s): J45.20 - Mild intermittent asthma, uncomplicated Plan: Stable continue with the inhaler as needed (8) Prostate cancer: Code(s): C61 - Malignant neoplasm of prostate Plan: Patient follows up with urology Orders: Orders Lipid Panel 3 Months E78.00 - Pure hypercholesterolemia, unspecified, I25.10 - Atherosclerotic heart disease of [place] coronary artery without angina pectoris Hemoglobin A1c 3 Months I25.10 - Atherosclerotic heart disease of [place] coronary artery without angina pectoris Ferritin 3 Months I25.10 - Atherosclerotic heart disease of [place] coronary artery without angina pectoris Vitamin B12 and Folate 3 Months I25.10 - Atherosclerotic heart disease of [place] coronary artery without angina pectoris Comprehensive Met. Panel 3 Months I25.10 - Atherosclerotic heart disease of [place] coronary artery without angina pectoris Complete Blood Count Auto Diff 3 Months I25.10 - Atherosclerotic heart disease of [place] coronary artery without angina pectoris Reticulocyte Count 3 Months I25.10 - Atherosclerotic heart disease of [place] coronary artery without angina pectoris IRON PROFILE 3 Months I25.10 - Atherosclerotic heart disease of [place] coronary artery without angina pectoris Medications: New budesonide 180 mcg/actuation (Pulmicort Flexhaler) 2 inhalations inhalation BID 1 ea 3RF J45.20 - Mild intermittent asthma, uncomplicated Refilled rosuvastatin (Crestor) 20 mg PO DAILY 90 tabs 3RF Coding Level of Care Code Est Pt Level 4 (62427) Diagnoses Bilateral inguinal hernia K40.20 Hypertension, unspecified type I10 Hypertension type: unspecified Aneurysm of ascending aorta without rupture I71.21 Presence of rupture: without rupture Atherosclerotic cardiovascular disease I25.10 Impaired glucose tolerance R73.02 Hypercholesterolemia E78.00 Mild intermittent asthma without complication J45.20 Asthma severity: mild Asthma persistence: intermittent Asthma complication type: uncomplicated Prostate cancer C61 Additional Codes PELON-7 Assessment Billing - PELON-7 Assessment Tool: PELON-7 Assessment [id number] ([id number])
== END 2024-03-01 16:38 | disposition home or self-care (01) ==
PROVIDERS: PCP Internal Medicine; Visit Provider Internal Medicine
DX: K40.20 Bilateral inguinal hernia, without obstruction or gangrene, not specified as recurrent (principal); I71.21 Aneurysm of the ascending aorta, without rupture; C61 Malignant neoplasm of prostate; I10 Essential (primary) hypertension; I25.10 Atherosclerotic heart disease of native coronary artery without angina pectoris; R73.02 Impaired glucose tolerance (oral); E78.00 Pure hypercholesterolemia, unspecified; J45.20 Mild intermittent asthma, uncomplicated
CPT/HCPCS: 99214

== ENCOUNTER 2024-05-15 08:05 | Outpatient (AMB) | payer OTHER, SELFPAY ==
[2024-05-15 08:10] VITALS: BP 110/74; PULSE 63; TEMP 36.7; O2SAT 97
--- NOTE | 2024-05-15 08:10 | AM.OFFWIN_ITS ---
Intake Vital Signs 05/15/24 08:10 Weight 135 lb 4 oz BP 110/74 Blood Pressure Location Lt brachial Position Sitting Pulse 63 Pulse Source Pulse Oximeter Temp 98.1 F Temp Source Oral Pulse Oximetry (%) 97 Oxygen Delivery Method Room Air Intake Visit Reasons: EP ? Cough Intake Note: Patient here for a cough that has been present for a few months, he has been experiencing SOB, wheezing. pt has hx of asthma Patient Tobacco Use Status: Former Tobacco user Allergies No Known Allergies Allergy (Verified 05/15/24 08:16) Do you need a note to return to daycare/school/sports/work: No HPI HPI Comments History of Present Illness Details Patient is an 79 yo M who presents with daughter for cough She is helping interpret He states hx of asthma and uses pump inhaler Ongoing intermittent cough x 4 months which has worsened Now has assocuated ST, ear pain/clogged feeling Subjective chills without documented fever Some SOB with exertion. No chest pain using OTC medicine without relief No other complaints [facility] Medical History (Updated 05/15/24 @ 08:35 by Aaliyah Nagy PA-C) Tinnitus, bilateral Plantar nerve lesion Constipated Abnormal EKG Abnormal stress ECG Ascending aortic aneurysm Atherosclerotic cardiovascular disease Impaired glucose tolerance Epididymo-orchitis SNHL (sensory-neural hearing loss), asymmetrical Hemorrhoid Hypercholesterolemia Vitamin D deficiency Asthma BPH (benign prostatic hyperplasia) Surgical History Anal fistula History of cataract surgery Family History Father No problems noted. Mother No problems noted. Social History Housing: Apartment Alcohol intake: never Patient Tobacco Use Status: Former Tobacco user Tobacco use type: Cigarette Years Smoked: 25 +/- e-Cigarette/Vaping Use: Never Used Second Hand Smoke Exposure: No Current occupational status: retired Cognitive needs: No Hearing needs: No Vision needs: Yes Review of Systems Const Reports chills, Reports fatigue, Denies fever(s) and Denies headache(s) Eyes Denies change in vision ENT Denies dizziness, Reports otalgia, Denies headache(s), Reports nasal discharge and Reports sore throat Card Denies chest pain and Reports dyspnea on exertion Resp Reports chest congestion, Reports cough and Reports dyspnea on exertion Musc Denies myalgias Neuro Denies dizziness and Denies headache(s) Endo Reports fatigue Physical Exam Vital Signs: Last Vital Signs Temp 98.1 F 05/15/24 08:10 Pulse 63 05/15/24 08:10 BP 110/74 05/15/24 08:10 Pulse Ox 97 05/15/24 08:10 Oxygen Delivery Method Room Air 05/15/24 08:10 General: Non-toxic, NAD. Speaking full sentences. Skin: Warm dry throughout Eye: EOMI HENT: Airway patent. Uvula midline. No pharyngeal erythema or edema. No MEDICAL BILLER CODER. Bilateral canals clear. minimal fluid behind TM. TM non-erythematous, non- bulging. No TM perforation or hemotympanum noted. Respiratory: No tachypnea. No respiratory distress. + rhonchi bilaterally with expiratory wheeze. No rales Cardiac: RRR. No murmur MSK: Full ROM extremities. Neurology: A/O. No aphasia or facial droop. Gait without abnormality Psych: Good mood and affect Assessment & Plan Assessment & Plan (1) Acute bacterial bronchitis: Code(s): J20.8 - Acute bronchitis due to other specified organisms; B96.89 - Other specified bacterial agents as the cause of diseases classified elsewhere Plan: Patient seen and evaluated. Chest xray: negative Will cover with doxycycline. Take with food and avoid sun Refill on inhaler sent Patient and daughter gave verbal understanding and had no additional questions or concerns at time of discharge All questions answered Orders: Orders XR chest 2V Today B96.89 - Other specified bacterial agents as the cause of diseases classified elsewhere, J20.8 - Acute bronchitis due to other specified organisms Medications: New doxycycline hyclate take with food! Avoid sun exposure/wear sunscreen 100 mg PO BID 14 caps 0RF Refilled albuterol sulfate 90 mcg/actuation (Ventolin HFA) 2 puffs inhalation QID PRN 8.5 grams 0RF shortness of breath or wheezing R05.9 - Cough, unspecified, R06.2 - Wheezing Coding Level of Care Code Est Pt Level 3 (04653) Diagnoses Acute bacterial bronchitis J20.8; B96.89
== END 2024-05-15 09:16 | disposition home or self-care (01) ==
PROVIDERS: PCP Internal Medicine; Visit Provider Physician Assistant
DX: J20.8 Acute bronchitis due to other specified organisms (principal); B96.89 Other specified bacterial agents as the cause of diseases classified elsewhere
CPT/HCPCS: 99213

== ENCOUNTER 2024-05-15 08:35 | Outpatient (REF) | payer OTHER, SELFPAY ==
--- NOTE | ~2024-05-15 | XR_ITS ---
EXAMINATION: XR CHEST 2 VIEW CLINICAL INFORMATION: Acute bronchitis COMPARISON: 12/21/2018 TECHNIQUE: PA and lateral views of the chest obtained. FINDINGS: The lungs are clear. There are no pleural effusions. The cardiomediastinal silhouette is normal. XR/XR chest 2V IMPRESSION: No acute cardiopulmonary disease. No significant interval change.
== END 2024-05-15 08:36 | disposition home or self-care (01) ==
LOC: HO.HMGCX 08:35
PROVIDERS: PCP Internal Medicine; Visit Provider Physician Assistant
DX: J20.8 Acute bronchitis due to other specified organisms (principal); B96.89 Other specified bacterial agents as the cause of diseases classified elsewhere
CPT/HCPCS: 71046

== ENCOUNTER 2024-07-16 10:26 | Outpatient (AMB) | payer OTHER, SELFPAY ==
[2024-07-16 10:30] VITALS: BP 110/58; PULSE 66; O2SAT 97; BMI 22.7
--- NOTE | 2024-07-16 10:30 | A.OFFPC_ITS ---
Vital Signs 07/16/24 10:30 Height 5 ft 5 in Weight 136 lb 4 oz BMI 22.7 BP 110/58 L Blood Pressure Location Lt brachial Position Sitting Pulse 66 Pulse Source Pulse Oximeter Pulse Oximetry (%) 97 Oxygen Delivery Method Room Air Intake Visit Reasons: cad, cholesterol asthma Client Relationship Manager Required: No Accompanied by: Self / Same As Patient Allergies lisinopril Adverse Reaction (Intermediate, Unverified 07/16/24 12:03) Cough Medication List - Last Reconciled 07/16/24 by Nelson Blankenship MD acetaminophen (Tylenol) 650 mg (2 x 325 mg) PO Q6H PRN albuterol sulfate 2.5 mg (3 mL) inhalation Q4H PRN albuterol sulfate 90 mcg/actuation (Ventolin HFA) 2 puffs inhalation QID PRN budesonide-formoterol 160-4.5 mcg/actuation (Symbicort) 2 puffs inhalation BID doxycycline hyclate 100 mg PO BID losartan 25 mg PO DAILY nebulizers (Aeroneb Go Nebulizer) As directed updraft treatment for albuterol Q 4 p.r.n. oxybutynin chloride ER 10 mg PO DAILY rosuvastatin (Crestor) 20 mg PO DAILY Tobacco use date assessed: 07/16/24 Last assessed Fall Risk: 07/16/24 Dental Screening Dental Screen Date: 07/16/24 Did you have a dental visit in the last 12 months?: Yes Did you have a dental problem in the last 6 months where you did not have access to dental care?: No Was dental information given to patient?: Patient has dentist HPI cad, cholesterol asthma HPI Details 79-year-old male with a history of hyper tension ascending aortic aneurysm atherosclerotic cardiovascular disease impaired glucose tolerance hypercholesterolemia asthma history of prostate cancer coming in for follow-up last seen in February 2024. Patient's colonoscopy November 2014. Urgent Center visit in April 2024 for cough x-ray negative. Placed on doxycycline urology follow-up done 05/03/2024 bone scan negative patient on treatment on leuprolide. interpret [phone] continue to complains of cough, has the inhalers [facility] Medical History (Updated 05/15/24 @ 08:35 by Aaliyah Nagy PA-C) Tinnitus, bilateral Plantar nerve lesion Constipated Abnormal EKG Abnormal stress ECG Ascending aortic aneurysm Atherosclerotic cardiovascular disease Impaired glucose tolerance Epididymo-orchitis SNHL (sensory-neural hearing loss), asymmetrical Hemorrhoid Hypercholesterolemia Vitamin D deficiency Asthma BPH (benign prostatic hyperplasia) Surgical History Anal fistula History of cataract surgery Family History Father No problems noted. Mother No problems noted. Social History Housing: Apartment Alcohol intake: never Patient Tobacco Use Status: Former Tobacco user Tobacco use type: Cigarette Years Smoked: 25 +/- e-Cigarette/Vaping Use: Never Used Second Hand Smoke Exposure: No Current occupational status: retired Cognitive needs: No Hearing needs: No Vision needs: Yes Questionnaire PHQ-9 Over the last 2 weeks, how often have you been bothered by any of the following problems? 1. Little interest or pleasure in doing things: not at all 2. Feeling down, depressed, or hopeless: not at all 3. Trouble falling or staying asleep, or sleeping too much: not at all 4. Feeling tired or having little energy: not at all 5. Poor appetite or overeating: not at all 6. Feeling bad about yourself - or that you are a failure or have let yourself or your family down: not at all 7. Trouble concentrating on things, such as reading the newspaper or watching television: not at all 8. Moving or speaking so slowly that other people could have noticed. Or the opposite - being so fidgety or restless that you have been moving around a lot more than usual: not at all 9. Thoughts that you would be better off or of hurting yourself in some way: not at all Total score: 0 Depression Screening Interpretation: Negative Depression Screening Done: Yes 87560 - PHQ-9 Billing: Yes Source: Developed by Drs. Carmine Griffin, Urszula Hidalgo, Cash Shepherd and colleagues, with an educational erin from [employer] Thrive Questionnaire Date Thrive assessed: 07/16/24 I am a: Patient What is your living situation today?: I have a steady place to live Within the past 12 months, did the food you bought not last and you didn't have the money to get more?: Never true Within the past 12 months, did you worry whether your food would run out before you got money to buy more?: Never true Do you have trouble paying for medicines?: No Do you have trouble getting transportation to medical appointments?: No Do you have trouble paying your heating and electricity bill?: No Do you have trouble taking care of your child, family member or friend?: No Do you have trouble with day-to-day activities such as bathing, preparing meals, shopping, managing finances, etc.?: No Are you currently unemployed and looking for a job?: No Are you interested in more education?: No Please select the resources that you would like help with: None Currently or been in a relationship where the following occur: No concerns reported THRIVE Score: 0 AUDIT C Alcohol Use Questionnaire (AUDIT-C) 1. How often do you have a drink containing alcohol?: Never 3. How often do you have six or more drinks on one occasion?: Never Total Score: 0 PELON-7 AMB Questionnaire PELON-7 Date PELON - 7 assessed: 07/16/24 Feeling nervous, anxious, or on edge: 0 = Not at all Not being able to stop or control worryin = Not at all Worrying too much about different things: 0 = Not at all Trouble relaxin = Not at all Being so restless that it is hard to sit still: 0 = Not at all Becoming easily annoyed or irritable: 0 = Not at all Feeling afraid as if something awful might happen: 0 = Not at all Total PELON-7 score (0-4 normal; 5-9 mild; 10-14 moderate; 15-21 severe): 0 Source: Developed by Drs. Carmine Griffin, Urszula Hidalgo, Cash Shepherd and colleagues, with an educational erin from [employer] PELON-7 Assessment Billing PELON-7 Assessment Tool: PELON-7 Assessment 62317 Physical exam (Primary Care) Vital Signs: Last Vital Signs Pulse 66 07/16/24 10:30 BP 110/58 L 07/16/24 10:30 Pulse Ox 97 07/16/24 10:30 Oxygen Delivery Method Room Air 07/16/24 10:30 BMI result Body Mass Index 22.7 Tobacco/Smoking Status: Tobacco use Status Tobacco use date assessed 07/16/24 07/16/24 10:33 Patient Tobacco Use Status Former Tobacco user 07/16/24 10:33 Tobacco use type Cigarette 07/16/24 10:33 e-Cigarette/Vaping Use Never Used 07/16/24 10:33 PHQ-9: PHQ-9 Score PHQ-9: Total score 0 07/16/24 11:00 Depression Screening Interpretation: Negative Thrive Assessment: Date of Thrive Assessment Date Thrive assessed 07/16/24 07/16/24 10:33 Currently or been in a relationship where the following occur: No concerns reported Const General: alert; No acute distress Eyes Conjunctivae: conjunctivae normal Resp Auscultation: wheezes Cardio Rate: regular rate Rhythm: regular rhythm GI Inspection: Yes normal to inspection Extrem General: Yes normal to inspection and No edema Assessment and Plan Assessment & Plan (1) Prostate cancer: Code(s): C61 - Malignant neoplasm of prostate Plan: Continue to follow-up with urology on leuprolide treatment (2) Hypertension: Code(s): I10 - Essential (primary) hypertension Qualifiers: Hypertension type: unspecified Qualified Code(s): I10 - Essential (primary) hypertension Plan: Continue with blood pressure medication. Decrease salt intake and exercise on lisinopril 10 mg once a day (3) Ascending aortic aneurysm: Comment: December 2022 Code(s): I71.21 - Aneurysm of the ascending aorta, without rupture Qualifiers: Presence of rupture: without rupture Qualified Code(s): I71.21 - Aneurysm of the ascending aorta, without rupture Plan: Patient was advised to have an echocardiogram to monitor planned 06/2024 (4) Atherosclerotic cardiovascular disease: Code(s): I25.10 - Atherosclerotic heart disease of [place] coronary artery without angina pectoris Plan: Control the cholesterol, weight, blood pressure (5) Impaired glucose tolerance: Code(s): R73.02 - Impaired glucose tolerance (oral) Plan: Decrease the amount of carbohydrate intake, pasta, bread, rice and potatoes are all sugar and that is aside from all the sweet stuff, remember that fruits are good but they are Sweet also. (6) Hypercholesterolemia: Code(s): E78.00 - Pure hypercholesterolemia, unspecified Plan: Avoid fried foods, chicken skin, eggs, butter margarine, pastries and meat. Be it pork or beef they have a lot of cholesterol on rosuvastatin and advised to get repeat blood work (7) Asthma: Code(s): J45.909 - Unspecified asthma, uncomplicated Qualifiers: Asthma severity: mild Asthma persistence: intermittent Asthma complication type: uncomplicated Qualified Code(s): J45.20 - Mild intermittent asthma, uncomplicated Plan: Continue with the inhalers, on albuterol Medications: New losartan 25 mg PO DAILY 30 tabs 3RF I10 - Essential (primary) hypertension budesonide-formoterol 160-4.5 mcg/actuation (Symbicort) 2 puffs inhalation BID 10.2 grams 3RF J45.20 - Mild intermittent asthma, uncomplicated Refilled albuterol sulfate 90 mcg/actuation (Ventolin HFA) 2 puffs inhalation QID PRN 8.5 grams 0RF shortness of breath or wheezing R05.9 - Cough, unspecified, R06.2 - Wheezing Discontinued budesonide 180 mcg/actuation (Pulmicort Flexhaler) Discontinued Reason: Doctor's Order 2 inhalations inhalation BID 1 ea 3RF J45.20 - Mild intermittent asthma, uncomplicated lisinopril Discontinued Reason: Doctor's Order 10 mg PO DAILY 30 tabs 5RF Coding Level of Care Code Est Pt Level 4 (74878) Diagnoses Prostate cancer C61 Hypertension, unspecified type I10 Hypertension type: unspecified Aneurysm of ascending aorta without rupture I71.21 Presence of rupture: without rupture Atherosclerotic cardiovascular disease I25.10 Impaired glucose tolerance R73.02 Hypercholesterolemia E78.00 Mild intermittent asthma without complication J45.20 Asthma severity: mild Asthma persistence: intermittent Asthma complication type: uncomplicated Additional Codes PELON-7 Assessment Billing - PELON-7 Assessment Tool: PELON-7 Assessment 49900 ([id number])
== END 2024-07-16 13:55 | disposition home or self-care (01) ==
PROVIDERS: PCP Internal Medicine; Visit Provider Internal Medicine
DX: C61 Malignant neoplasm of prostate (principal); I71.21 Aneurysm of the ascending aorta, without rupture; I10 Essential (primary) hypertension; I25.10 Atherosclerotic heart disease of native coronary artery without angina pectoris; R73.02 Impaired glucose tolerance (oral); E78.00 Pure hypercholesterolemia, unspecified; J45.20 Mild intermittent asthma, uncomplicated
CPT/HCPCS: 99214

== ENCOUNTER → 2024-07-25 07:36 | Outpatient (REF) | payer OTHER, SELFPAY ==
--- NOTE | 2024-07-25 07:39 | CA_ITS ---
Transthoracic Echocardiogram Patient (Last, First, Middle): Blake Perla, Gender: Male Date of : 1945 Age: 79 Procedure Date: 07/25/2024 Procedure Type: Transthoracic Echocardiogram Location: OP Height: 160.02 cm Weight: 61.69 kg BSA: 1.64 m2 Heart Rate: 53 bpm BP: 135 / 80 mmHg Field Operations Manager: SOLOMON Referring MD: Rozina TYSON Electrical Mechanic: Warren Rodriguez MD Symptoms: I25.10 - Atherosclerotic heart disease of [place] coronary artery without... Study Quality: Fair ECG Rhythm: Bradycardia Conclusions: - 1. Normal LV systolic function with LVEF of 60-65% with mild LVH with impaired relaxation filling pattern 2. Normal cardiac valvular Dopplers 3. Mildly dilated ascending aorta at 4.2 cm 4. No gross pericardial effusion Findings Left Ventricle Normal left ventricular size and systolic function. There is mildly increased left ventricular wall thickness. The visually estimated ejection fraction is between 60-65%. Spectral Doppler is indicative of an impaired relaxation filling pattern. E/E prime ratio is between 8 and 15 consistent with indeterminate filling pressures. possible basal inferior inferoseptal wall motion abnormality. Peak GLS is -17.9%, borderline normal. Right Ventricle Normal right ventricular cavity size and systolic function. Atria Both atria are normal in size. There is lipomatous hypertrophy of the interatrial septum. There is no evidence of interatrial shunt. Aortic Valve Normal aortic valve structure and function. There is no aortic valve stenosis. There is no aortic valve regurgitation. Mitral Valve Normal mitral valve structure and function. There is trace mitral valve regurgitation. There is no mitral valve stenosis. Pulmonic Valve The pulmonic valve is likely normal. Tricuspid Valve Likely normal tricuspid valve structure and function. Tricuspid regurgitation envelope is inadequate for calculation of right ventricular systolic pressure. Normal right atrial pressure. Great Vessels The pulmonary artery was not well visualized. There is mild dilatation of the ascending aorta measuring 4.20 cm. Venous The inferior vena cava is normal in size and collapses greater than 50% with inspiration. Pericardium/Pleural There is no evidence of pericardial effusion. Prior Study Comparison No significant change compared to prior study dated: 01/19/2023. Measurements 2D Linear Measurements IVSd: 1.21 0.6-0.9/0.6-1.0 cm LVIDd: 4.53 3.9-5.3/4.2-5.9 cm LVIDd Index: 2.76 2.4-3.2/2.2-3.1 cm/m2 LVIDs: 2.95 2.0-3.6 cm LVPWd: 1.05 0.7-1.1 cm LA Diam: 3.50 2.7-3.8/3.0-4.0 cm LAIDs Index: 2.13 1.5-2.3 cm/m2 LV Mass: 228.89 67-162/88-224 g LV Mass Index: 139.57 43-95/49-115 g/m2 LVOT Diam: 2.20 3.0+(-)1.3 cm 2D Systolic Function EF 4C: 60.60 >55% EF 2C: 68.10 >55% EF BiP: 63.80 >55% Mitral Valve MV Pk E: 0.60 MV PK A: 0.88 MV Decel Time: 291.00 E/A: 0.70 E'Lateral: 6.85 E'Medial: 4.57 E/E' Med: 13.10 E/E' Lat: 8.80 PHT: 85.00 MVA PHT: 2.59 Decel [place]: 2.06 Aortic Valve AoV Pk Mahad: 1.21 AoV Mn Mahad: 0.83 AoV VTI: 0.31 AoV Pk Grad: 6.00 Aov Mn Grad: 3.00 OJ Cont.VTI: 2.76 LVOT LVOT Pk Mahad: 0.80 LVOT Mn Mahad: 0.58 LVOT VTI: 0.23 LVOT Pk Grad: 3.00 LVOT Mn Grad: 1.00 LVOT Diam: 2.20 LVOT Area: 3.80 Diastolic Function MV Pk E: 0.60 MV Pk A: 0.88 E/A: 0.70 E'Medial: 4.57 E/E' Med: 13.10 E' Laterial: 6.85 E/E' Lat: 8.80 Right Ventricle TAPSE (mm): 21.30 TVS' Mahad: 13.30 Tricuspid Valve TR Pk Mahad: 1.43 TR Pk Grad: 8.00 Great Vessels Aorta Sinus of Valsalva: 3.50 2.0-3.5 cm Ao Asc: 4.20 2.1-3.4 cm Ao Arch: 2.80 Pulmonary Valve PV Pk Mahad: 0.83 Peak PV Grad: 3.00 Updated in Other Vendor System with Status of Final Warren Rodriguez MD electronically signed on 07/25/2024 1:57:14 PM with status of Final
== END ==
LOC: HO.CARD 07:36
PROVIDERS: PCP Internal Medicine; Visit Provider Nurse Practitioner Family
DX: I25.10 Atherosclerotic heart disease of native coronary artery without angina pectoris (principal); I71.21 Aneurysm of the ascending aorta, without rupture
CPT/HCPCS: 93306; 93356

== ENCOUNTER → 2024-07-25 07:39 | Outpatient (BNV) | payer OTHER, SELFPAY | PROVIDERS: PCP Internal Medicine; Visit Provider Internal Medicine Cardiovascular Disease | DX: I51.89 Other ill-defined heart diseases (principal); R93.1 Abnormal findings on diagnostic imaging of heart and coronary circulation | CPT/HCPCS: 93306; 93356 ==

== ENCOUNTER 2024-09-17 09:58 | Outpatient (AMB) | payer OTHER, SELFPAY ==
--- NOTE | 2024-09-17 10:09 | A.OFFPC_ITS ---
Vital Signs 09/17/24 10:11 Height 5 ft 5 in Weight 138 lb BMI 23.0 BP 132/56 L Blood Pressure Location Lt brachial Position Sitting Pulse 73 Pulse Source Pulse Oximeter Pulse Oximetry (%) 98 Oxygen Delivery Method Room Air Intake Visit Reasons: asthma, cough , HTN Margarine Churn Operator Required: Yes Margarine Churn Operator Language: Jordanian Allergies lisinopril Adverse Reaction (Intermediate, Verified 09/17/24 10:12) Cough Medication List - Last Reconciled 09/17/24 by Yuli Cunningham PA-C acetaminophen (Tylenol) 650 mg (2 x 325 mg) PO Q6H PRN albuterol sulfate 2.5 mg (3 mL) inhalation Q4H PRN albuterol sulfate 90 mcg/actuation (Ventolin HFA) 2 puffs inhalation QID PRN budesonide-formoterol 160-4.5 mcg/actuation (Symbicort) 2 puffs inhalation BID losartan 25 mg PO DAILY nebulizers (Aeroneb Go Nebulizer) As directed updraft treatment for albuterol Q 4 p.r.n. oxybutynin chloride ER 10 mg PO DAILY rosuvastatin (Crestor) 20 mg PO DAILY Tobacco use date assessed: 07/16/24 Fall risk assessment: No Falls in past year Last assessed Fall Risk: 09/17/24 Dental Screening Dental Screen Date: 07/16/24 HPI asthma, cough , HTN HPI Details 79-year-old male with past medical histo ry of hypertension, ascending aortic aneurysm, atherosclerotic cardiovascular disease, impaired glucose tolerance, hypercholesterolemia, asthma, history of prostate cancer last seen by Dr. Blankenship June 2024 coming in for follow up.? Patient was scheduled to follow up with Cardiology July 2024 but missed his appointment.? Patient underwent transthoracic echocardiogram 07/25/2024 which showed:? - 1. Normal LV systolic function with LV EF of 60-65% with mild??? LVH with impaired relaxation filling pattern? 2. Normal cardiac valvular Dopplers? 3. Mildly dilated ascending aorta at 4.2 cm? 4. No gross pericardial effusion Patient continues to have shortness of breath and coughing at night. He uses albuterol inhaler multiple times per week. He also mentions having difficulty swallowing while eating and feels the food bolus we will get stuck in his esophagus and has to drink plenty of water to move the bolus. Also complaining of whooshing sound in bilateral ears. [facility] Medical History (Updated 09/17/24 @ 12:23 by Yuli Cunningham PA-C) Tinnitus, bilateral Plantar nerve lesion Constipated Abnormal EKG Abnormal stress ECG Ascending aortic aneurysm Atherosclerotic cardiovascular disease Impaired glucose tolerance Epididymo-orchitis SNHL (sensory-neural hearing loss), asymmetrical Hemorrhoid Hypercholesterolemia Vitamin D deficiency Asthma BPH (benign prostatic hyperplasia) Surgical History Anal fistula History of cataract surgery Family History Father No problems noted. Mother No problems noted. Social History Housing: Apartment Alcohol intake: never Patient Tobacco Use Status: Former Tobacco user Tobacco use type: Cigarette Years Smoked: 25 +/- e-Cigarette/Vaping Use: Never Used Second Hand Smoke Exposure: No Current occupational status: retired Cognitive needs: No Hearing needs: No Vision needs: Yes Questionnaire Thrive Questionnaire Date Thrive assessed: 07/16/24 AUDIT C Alcohol Use Questionnaire (AUDIT-C) 1. How often do you have a drink containing alcohol?: Never 3. How often do you have six or more drinks on one occasion?: Never Total Score: 0 PELON-7 AMB Questionnaire PELON-7 Date PELON - 7 assessed: 07/16/24 Source: Developed by Drs. Carmine Griffin, Urszula Hidalgo, Cash Shepherd and colleagues, with an educational erin from [employer]. Review of Systems Const Denies body aches, Denies chills, Denies fever(s), Denies headache(s) and Denies poor appetite Eyes Reports no additional complaints ENT Reports dysphagia, Denies dizziness, Denies headache(s), Denies odynophagia and Reports tinnitus Card Denies chest pain, Denies syncope, Denies edema, Denies irregular heart rhythm, Denies lightheadedness and Denies dyspnea Resp Denies cough and Denies dyspnea GI Denies abdominal pain, Reports dysphagia, Denies dyspepsia, Denies nausea and Denies odynophagia Reports no additional complaints Musc Reports no additional complaints and Denies abnormal gait Skin/Breast Reports system reviewed and no additional complaints, except as documented Neuro Denies abnormal gait, Denies dizziness, Denies syncope and Denies headache(s) Psych Reports no additional complaints Physical exam (Primary Care) Vital Signs: Last Vital Signs Pulse 73 09/17/24 10:11 BP 132/56 L 09/17/24 10:11 Pulse Ox 98 09/17/24 10:11 Oxygen Delivery Method Room Air 09/17/24 10:11 BMI result Body Mass Index 23.0 Tobacco/Smoking Status: Tobacco use Status Tobacco use date assessed 07/16/24 09/17/24 10:10 Patient Tobacco Use Status Former Tobacco user 09/17/24 10:10 Tobacco use type Cigarette 09/17/24 10:10 e-Cigarette/Vaping Use Never Used 09/17/24 10:10 Thrive Assessment: Date of Thrive Assessment Date Thrive assessed 07/16/24 09/17/24 10:10 Const General: cooperative, healthy appearing, comfortable and no acute distress Orientation/consciousness: patient oriented x3 HENMT Head: Yes normocephalic Ears: hearing grossly normal bilaterally, TM's normal bilaterally and EAC's normal General nose exam: Normal external nose present Eyes General: appearance normal, both eyes and all related structures Conjunctivae: conjunctivae normal Neck Neck: Yes full ROM and Yes no lymphadenopathy Resp Effort & Inspection: normal respiratory effort Auscultation: clear to auscultation bilaterally, no crackles, no rales, no rhonchi and wheezes left upper Cardio Rate: regular rate Rhythm: regular rhythm Skin General skin exam: no rashes or lesions noted Neuro General: patient oriented x3 Gait exam (Neuro): Normal gait present Extrem General: Yes normal to inspection, Yes full ROM and No edema Psych Affect: normal affect Attitude: cooperative Insight: Good insight present (Psych) Judgement: Good judgement present (Psych) Coding Level of Care Code Est Pt Level 4 (41172) Diagnoses Hypertension, unspecified type I10 Hypertension type: unspecified Aneurysm of ascending aorta without rupture I71.21 Presence of rupture: without rupture Atherosclerotic cardiovascular disease I25.10 Impaired glucose tolerance R73.02 Hypercholesterolemia E78.00 Mild intermittent asthma without complication J45.20 Asthma complication type: uncomplicated Asthma persistence: intermittent Asthma severity: mild Dysphagia R13.10 Tinnitus H93.19 Assessment & Plan Assessment & Plan (1) Hypertension: Code(s): I10 - Essential (primary) hypertension Category: Medical Qualifiers: Hypertension type: unspecified Qualified Code(s): I10 - Essential (primary) hypertension Plan: Continue on current blood pressure medication. Avoid salt intake and encourage healthy diet and regular exercise. (2) Ascending aortic aneurysm: Comment: December 2022 /June 2024 4.2 cm no growth Code(s): I71.21 - Aneurysm of the ascending aorta, without rupture Category: Medical Qualifiers: Presence of rupture: without rupture Qualified Code(s): I71.21 - Aneurysm of the ascending aorta, without rupture Plan: Advised patient to reschedule cardiology appointment and continue to follow with them for repeat imaging. (3) Atherosclerotic cardiovascular disease: Code(s): I25.10 - Atherosclerotic heart disease of [place] coronary artery without angina pectoris Category: Medical Plan: Work on blood pressure, cholesterol, diabetes control. (4) Impaired glucose tolerance: Code(s): R73.02 - Impaired glucose tolerance (oral) Category: Medical Plan: Decrease the amount of carbohydrates such as pasta, bread, rice, and potatoes and limit the amount of sweets. Although fruits are generally healthy they should be eaten in moderation as they are still high in sugar. Hemoglobin A1c goal of less than 7%. (5) Hypercholesterolemia: Code(s): E78.00 - Pure hypercholesterolemia, unspecified Category: Medical Plan: Avoid foods that are high in cholesterol such as red meat, fried foods, eggs and baked goods. Triglyceride goal of less than 150 and LDL goal of less than 100. Ordered for updated blood work. (6) Asthma: Code(s): J45.909 - Unspecified asthma, uncomplicated Category: Medical Qualifiers: Asthma complication type: uncomplicated Asthma persistence: intermittent Asthma severity: mild Qualified Code(s): J45.20 - Mild intermittent asthma, uncomplicated Plan: Asthma not well controlled on present medications we will switch Symbicort to Trelegy Ellipta and referral to pulmonology placed. Avoid triggers such as allergies. (7) Dysphagia: Code(s): R13.10 - Dysphagia, unspecified Category: Medical Plan: Ordered for barium swallow test for further evaluation of difficulty swallowing. Advised patient in the meantime to take smaller bites of food with plenty of water to avoid choking or aspirating. (8) Tinnitus: Code(s): H93.19 - Tinnitus, unspecified ear Category: Medical Plan: Patient complaining of whooshing sound in bilateral ears. Ordered hearing test for further evaluation. Plan This note was constructed using voice recognition software. While every effort has been made to ensure accuracy and bilingual legal assistant, still areas may have been included sometimes these areas may affect the content or meeting of the given symptoms. Total time spent caring for the patient today was 30 minutes. This includes time spent before the visit reviewing the chart, time spent during the visit, and time spent after the visit and documentation. Orders: Orders FL Modified Barium Swallow Today R13.10 - Dysphagia, unspecified Comprehensive Met. Panel Today I25.10 - Atherosclerotic heart disease of [place] coronary artery without angina pectoris Ferritin Today I25.10 - Atherosclerotic heart disease of [place] coronary artery without angina pectoris Hemoglobin A1c Today I25.10 - Atherosclerotic heart disease of [place] coronary artery without angina pectoris Vitamin B12 and Folate Today I25.10 - Atherosclerotic heart disease of [place] coronary artery without angina pectoris Complete Blood Count Auto Diff Today I25.10 - Atherosclerotic heart disease of [place] coronary artery without angina pectoris IRON PROFILE Today I25.10 - Atherosclerotic heart disease of [place] coronary artery without angina pectoris Lipid Panel Today E78.00 - Pure hypercholesterolemia, unspecified, I25.10 - Atherosclerotic heart disease of [place] coronary artery without angina pectoris Reticulocyte Count Today I25.10 - Atherosclerotic heart disease of [place] coronary artery without angina pectoris Referrals Speech and Hearing Referral H93.19 - Tinnitus, unspecified ear Pulmonology Referral J45.20 - Mild intermittent asthma, uncomplicated Medications: New hofnkzdbndf-jbrmnexsz-zurtjqlg 100-62.5-25 mcg (Trelegy Ellipta) 1 inh inhalation DAILY 60 ea 0RF Refilled albuterol sulfate 90 mcg/actuation (Ventolin HFA) 2 puffs inhalation QID PRN 8.5 grams 0RF shortness of breath or wheezing R05.9 - Cough, unspecified, R06.2 - Wheezing Discontinued budesonide-formoterol 160-4.5 mcg/actuation (Symbicort) Discontinued Reason: Patient no longer taking 2 puffs inhalation BID 10.2 grams 3RF J45.20 - Mild intermittent asthma, uncomplicated
[2024-09-17 10:11] VITALS: BP 132/56; PULSE 73; O2SAT 98; BMI 23.0
== END 2024-09-17 10:49 | disposition home or self-care (01) ==
PROVIDERS: PCP Internal Medicine
DX: I10 Essential (primary) hypertension (principal); I71.21 Aneurysm of the ascending aorta, without rupture; I25.10 Atherosclerotic heart disease of native coronary artery without angina pectoris; R73.02 Impaired glucose tolerance (oral); E78.00 Pure hypercholesterolemia, unspecified; J45.20 Mild intermittent asthma, uncomplicated; R13.10 Dysphagia, unspecified; H93.19 Tinnitus, unspecified ear

== ENCOUNTER → 2024-09-17 09:58 | Outpatient (BNVA) | payer OTHER, SELFPAY | PROVIDERS: PCP Internal Medicine | DX: I10 Essential (primary) hypertension (principal); I71.21 Aneurysm of the ascending aorta, without rupture; I25.10 Atherosclerotic heart disease of native coronary artery without angina pectoris; R73.02 Impaired glucose tolerance (oral); E78.00 Pure hypercholesterolemia, unspecified; J45.20 Mild intermittent asthma, uncomplicated; R13.10 Dysphagia, unspecified; H93.13 Tinnitus, bilateral | CPT/HCPCS: 99212 ==

== ENCOUNTER 2024-09-19 08:12 | Outpatient (REF) | payer OTHER, SELFPAY ==
[2024-09-19 08:42] LABS: MANUAL DIFF FLAG NO
[2024-09-19 09:06] LABS: Basophils Percent Auto 0.3 % (0-2); Eosinophils Absolute Auto 0.3 X10*3/uL (0.0-0.4); Hematocrit 36.3 % (42.0-52.0); Hemoglobin 11.9 g/dl (14.0-18.0); Imm Gran Abs Auto 0.05 X10*3/uL (0.00-0.03); Imm Gran Pct Auto 0.5 % (0.0-0.4); Immature Retic Fraction 13.2 % (2.3-13.4); Lymphocytes Absolute Auto 1.4 X10*3/uL (1.2-4.9); Lymphocytes Percent Auto 13.4 % (20-40); Mean Corpuscular HGB Conc 32.8 g/dl (31.0-36.0); Mean Corpuscular Hemoglobin 29.2 pg (27.0-33.0); Mean Platelet Volume 9.5 fL (9.4-12.4); Monocytes Percent Auto 10.2 % (2-11); Neutrophils Absolute Auto 7.4 x10*3/uL (2.0-8.3); Neutrophils Percent Auto 72.6 % (45-73); Platelet Count 177 X10*3/uL (160-400); Red Blood Count 4.08 X10*6/uL (4.60-5.80); Red Cell Distribution Width 12.8 % (11.0-16.0); Retic HGB Equivalent 32.5 pg (30.0-35.0); Reticulocyte Percent 2.1 % (0.5-1.8); Reticulocytes Absolute 0.085 X10*6/uL (0.026-0.095); White Blood Count 10.2 X10*3/uL (4.8-10.8)
[2024-09-19 09:21] LABS: Estimated Average Glucose 120 mg/dL; Hemoglobin A1c % 5.8 % (<6.0); Total Hemoglobin (HGBA1C) 2949.3556 umol/L
[2024-09-19 10:03] LABS: Alanine Aminotransferase 16 U/L (0-40); Albumin Level 3.8 g/dL (3.5-5.0); Alkaline Phosphatase 55 U/L (39-117); Anion Gap 9 (12-20); Aspartate Amino Transferase 25 U/L (5-37); Bilirubin Total 0.7 mg/dL (0.0-1.0); Blood Urea Nitrogen 28 mg/dL (9-16); Calcium 9.6 mg/dL (8.4-10.2); Carbon Dioxide 30 mmol/L (22-29); Chloride 105 mmol/L (96-108); Cholesterol 143 mg/dL (<200); Estimated Glomerular Filt Rate > 60; Glucose Random 104 mg/dL (60-115); HDL Cholesterol 58 mg/dL (>40); Iron 71 mcg/dL (45-160); LDL Cholesterol Calculated 73 mg/dL (<100); Percent Iron Saturation 34 % (15-50); Sodium 140 mmol/L (135-145); Total Iron Binding Capacity 206 mcg/dL (228-428); Total Protein 6.7 g/dL (6.5-8.0); Triglycerides 61 mg/dL (<150); Unsaturated Iron Binding 135 ug/dL
[2024-09-19 10:43] LABS: Ferritin 342 ng/mL (20-250)
[2024-09-19 10:55] LABS: Folate 13.9 ng/mL (> or = 4.0); Vitamin B12 362 pg/mL (200-900)
== END 2024-09-19 08:13 | disposition home or self-care (01) ==
LOC: HO.LAB 08:12
PROVIDERS: PCP Internal Medicine
DX: I25.10 Atherosclerotic heart disease of native coronary artery without angina pectoris (principal); E78.00 Pure hypercholesterolemia, unspecified; Z13.1 Encounter for screening for diabetes mellitus
CPT/HCPCS: 36415; 80053; 80061; 82607; 82728; 82746; 83036; 83540; 85025; 85045

== ENCOUNTER → 2024-10-16 08:54 | Outpatient (BNV) | payer OTHER, SELFPAY | PROVIDERS: PCP Internal Medicine; Referring Provider Internal Medicine; Visit Provider Internal Medicine Medical Oncology | DX: D64.9 Anemia, unspecified (principal) | CPT/HCPCS: 99204 ==

== ENCOUNTER 2024-11-09 10:16 | Outpatient (AMB) | payer OTHER, SELFPAY ==
[2024-11-09 10:27] VITALS: BP 127/62; PULSE 70; O2SAT 99; BMI 22.6
--- NOTE | 2024-11-09 10:27 | A.OFFVIS_ITS ---
Vital Signs 11/09/24 10:27 Height 5 ft 5 in Weight 136 lb BMI 22.6 BP 127/62 Blood Pressure Location Rt brachial Position Sitting Pulse 70 Pulse Source Doppler Pulse Oximetry (%) 99 Oxygen Delivery Method Room Air Intake Visit Reasons: asthma Promotional Representative Required: Yes Promotional Representative Name: Nanci Ricardo Bradley Allergies lisinopril Adverse Reaction (Intermediate, Verified 11/09/24 10:32) Cough HPI HPI asthma: Details: 79-year-old gentleman, former 30 pack-year smoker, quit 40 years prior with underlying diagnosis of asthma over the last year treated with trilogy albuterol referred for pulmonary evaluation. Patient states that he has been using trilogy and albuterol MDI with suboptimal control of his symptoms. Currently his complain of cough productive of yellowish sputum. He denies environmental allergies. Patient does have multiple siblings with asthma. He denies exposure to industrial dusts. [facility] Medical History (Updated 10/16/24 @ 12:54 by Valentín August MD) Tinnitus, bilateral Plantar nerve lesion Constipated Abnormal EKG Abnormal stress ECG Ascending aortic aneurysm Atherosclerotic cardiovascular disease Impaired glucose tolerance Epididymo-orchitis SNHL (sensory-neural hearing loss), asymmetrical Hemorrhoid Hypercholesterolemia Vitamin D deficiency Asthma BPH (benign prostatic hyperplasia) Surgical History Anal fistula History of cataract surgery Family History Father No problems noted. Mother No problems noted. Social History (Updated 11/09/24 @ 10:34 by ALIZE eJrry) Housing: Apartment Alcohol intake: never Patient Tobacco Use Status: Former Tobacco user Tobacco use type: Cigarette Years Smoked: 24 +/-, started 15yo, 1.5PPD, e-Cigarette/Vaping Use: Never Used Second Hand Smoke Exposure: No service: No Current occupational status: retired Cognitive needs: No Hearing needs: No Vision needs: Yes Review of Systems Const Denies daytime sleepiness, Denies excessive sweating, Denies fatigue, Denies fever(s), Denies lethargy, Denies malaise, Denies night sweats, Denies snoring and Denies weight loss Eyes Denies blurry vision and Denies itchy eyes ENT Denies nasal congestion, Denies post nasal drip, Denies sinus pain, Denies sinus pressure and Denies other ( Thrush) Card Denies chest pain, Denies pedal edema, Denies dyspnea, Denies orthopnea and Denies paroxysmal nocturnal dyspnea Resp Reports cough, Denies hemoptysis, Reports excessive phlegm production, Denies dyspnea, Denies snoring and Denies wheezing GI Denies abdominal pain and Denies heartburn Musc Denies myalgias, Denies arthralgias and Denies joint swelling Skin/Breast Denies rash Neuro Denies memory loss and Denies seizure-like activity Psych Denies abnormal sleep pattern, Denies anxiety and Denies memory loss Endo Denies excessive sweating, Denies fatigue and Denies heat intolerance Leonel/Lymph Denies easy bruising Aller/Immun Denies itchy eyes, Denies seasonal rhinorrhea and Denies wheezing Physical Exam Vital Signs: Last Vital Signs Pulse 70 11/09/24 10:27 BP 127/62 11/09/24 10:27 Pulse Ox 99 11/09/24 10:27 Oxygen Delivery Method Room Air 11/09/24 10:27 BMI result Body Mass Index 22.6 Const General: no acute distress and alert Nutritional Appearance: not obese Orientation/consciousness: Other orientation findings ( oriented) HEENT Head: Yes atraumatic Eyes General: appearance normal, both eyes and all related structures Sclerae: sclerae normal EOM: EOMs intact bilaterally Neck Neck: Yes supple Lymphatic: no lymphadenopathy noted Resp Effort & Inspection: normal respiratory effort and no use of accessory muscles Auscultation: clear to auscultation bilaterally Cardio Rate: regular rate Rhythm: regular rhythm Heart sounds: no gallops, no murmurs and no rubs Skin General skin exam: other ( warm) Extrem General: No clubbing, No cyanosis and No edema Assessment & Plan Assessment & Plan (1) Asthma: Code(s): J45.909 - Unspecified asthma, uncomplicated Category: Medical Qualifiers: Asthma severity: mild Asthma persistence: intermittent Asthma compli cation type: uncomplicated Qualified Code(s): J45.20 - Mild intermittent asthma, uncomplicated Plan: Inhaler technique checked and adjusted. Unclear severity. Will obtain full PFT. Continue baseline regimen of Trelegy and albuterol MDI. (2) Acute bacterial bronchitis: Code(s): J20.8 - Acute bronchitis due to other specified organisms; B96.89 - Other specified bacterial agents as the cause of diseases classified elsewhere Category: Medical Plan: Will treat with a course of Levaquin. Coding Level of Care Code New Pt Level 4 (40229) Diagnoses Mild intermittent asthma without complication J45.20 Asthma severity: mild Asthma persistence: intermittent Asthma complication type: uncomplicated Acute bacterial bronchitis J20.8; B96.89
== END 2024-11-09 11:01 | disposition home or self-care (01) ==
PROVIDERS: PCP Internal Medicine; Visit Provider Internal Medicine Pulmonary Disease
DX: J45.20 Mild intermittent asthma, uncomplicated (principal); J20.8 Acute bronchitis due to other specified organisms; B96.89 Other specified bacterial agents as the cause of diseases classified elsewhere
CPT/HCPCS: 99204

== ENCOUNTER → 2024-11-09 10:16 | Outpatient (BNVA) | payer OTHER, SELFPAY | PROVIDERS: PCP Internal Medicine; Visit Provider Internal Medicine Pulmonary Disease | DX: J45.20 Mild intermittent asthma, uncomplicated (principal); J20.8 Acute bronchitis due to other specified organisms; B96.89 Other specified bacterial agents as the cause of diseases classified elsewhere | CPT/HCPCS: 99202 ==

== ENCOUNTER 2024-12-25 09:31 | Outpatient (AMB) | payer OTHER, SELFPAY ==
--- NOTE | 2024-12-25 09:36 | A.OFFPC_ITS ---
Vital Signs 12/25/24 09:38 Height 5 ft 5 in Weight 135 lb 8 oz BMI 22.5 BP 110/60 Blood Pressure Location Lt brachial Position Sitting Pulse 68 Pulse Source Pulse Oximeter Temp 96.9 F Temp Source Skin Pulse Oximetry (%) 98 Oxygen Delivery Method Room Air Intake Visit Reasons: follow up DM Intake Note: Patient is here to follow up on DM, HTN. Business Banking Sales Assistant Required: Yes Business Banking Sales Assistant Language: Bangladeshi Information Interpreted: non-clinical & clinical Box Strapper: Not Required per policy Accompanied by: Self / Same As Patient Allergies lisinopril Adverse Reaction (Intermediate, Verified 12/25/24 09:38) Cough Medication List - Last Reconciled 12/25/24 by Yuli Cunningham PA-C acetaminophen (Tylenol) 650 mg (2 x 325 mg) PO Q6H PRN albuterol sulfate 2.5 mg (3 mL) inhalation Q4H PRN albuterol sulfate 90 mcg/actuation (Ventolin HFA) 2 puffs inhalation QID PRN kdwbcsidldg-owijeixpt-hpxdkroi 100-62.5-25 mcg (Trelegy Ellipta) 1 inh inhalation DAILY losartan 25 mg PO DAILY nebulizers (Aeroneb Go Nebulizer) As directed updraft treatment for albuterol Q 4 p.r.n. rosuvastatin (Crestor) 20 mg PO DAILY Tobacco use date assessed: 12/25/24 Fall risk assessment: No Falls in past year Last assessed Fall Risk: 12/25/24 Dental Screening Dental Screen Date: 12/25/24 Did you have a dental visit in the last 12 months?: Yes Did you have a dental problem in the last 6 months where you did not have access to dental care?: No Was dental information given to patient?: Patient has dentist HPI follow up DM HPI Details 79-year-old male with past medical histo ry of hypertension, ascending aortic aneurysm, atherosclerotic cardiovascular disease, impaired glucose tolerance, hypercholesterolemia, asthma, history of prostate cancer last seen 08/2024 coming in for follow up.? In review of the notes, patient was seen by [facility] 11 08 2024 advised to continue on finasteride 5 mg daily and follow up in 6 months for repeat CAMCEVI injection.? Patient was seen by pulmonology 10/2024 ordered for PFT and treated for bronchitis with Levaq uin.? Patient was seen by Hematology/Oncology 09/2024 plan to monitor the blood count and follow up in 3 months. 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 Today he tells us he has been feeling generally well. He does still have the same concerns since last visit of the hearing loss and ringing in the ears which has been worsening. He also is still concerned about the occasional difficulty swallowing. He states no on reach out to him to schedule the hearing test or the swallow study. He also mentions he has not reached out to Cardiology to schedule a follow up appointment. [facility] Medical History Tinnitus, bilateral Plantar nerve lesion Constipated Abnormal EKG Abnormal stress ECG Ascending aortic aneurysm Atherosclerotic cardiovascular disease Impaired glucose tolerance Epididymo-orchitis SNHL (sensory-neural hearing loss), asymmetrical Hemorrhoid Hypercholesterolemia Vitamin D deficiency Asthma BPH (benign prostatic hyperplasia) Surgical History Anal fistula History of cataract surgery Family History Father No problems noted. Mother No problems noted. Social History Housing: Apartment Alcohol intake: never Patient Tobacco Use Status: Former Tobacco user Tobacco use type: Cigarette Years Smoked: 25 +/-, started 15yo, 1.5PPD, e-Cigarette/Vaping Use: Never Used Second Hand Smoke Exposure: Yes service: No Current occupational status: retired Cognitive needs: No Hearing needs: No Vision needs: Yes Questionnaire PHQ-9 Over the last 2 weeks, how often have you been bothered by any of the following problems? 1. Little interest or pleasure in doing things: not at all 2. Feeling down, depressed, or hopeless: not at all 3. Trouble falling or staying asleep, or sleeping too much: not at all 4. Feeling tired or having little energy: not at all 5. Poor appetite or overeating: not at all 6. Feeling bad about yourself - or that you are a failure or have let yourself or your family down: not at all 7. Trouble concentrating on things, such as reading the newspaper or watching television: not at all 8. Moving or speaking so slowly that other people could have noticed. Or the opposite - being so fidgety or restless that you have been moving around a lot more than usual: not at all 9. Thoughts that you would be better off or of hurting yourself in some way: not at all Total score: 0 Depression Screening Interpretation: Negative Depression Screening Done: Yes Source: Developed by Drs. Carmine Griffin, Urszula Hidalgo, Cash Shepherd and colleagues, with an educational erin from [employer]. Thrive Questionnaire Date Thrive assessed: 12/25/24 I am a: Patient What is your living situation today?: I have a steady place to live Within the past 12 months, did the food you bought not last and you didn't have the money to get more?: Never true Within the past 12 months, did you worry whether your food would run out before you got money to buy more?: Never true Do you have trouble paying for medicines?: No Do you have trouble getting transportation to medical appointments?: No Do you have trouble paying your heating and electricity bill?: No Do you have trouble taking care of your child, family member or friend?: No Do you have trouble with day-to-day activities such as bathing, preparing meals, shopping, managing finances, etc.?: No Are you currently unemployed and looking for a job?: No Are you interested in more education?: No Please select the resources that you would like help with: None Currently or been in a relationship where the following occur: No concerns reported THRIVE Score: 0 AUDIT C Alcohol Use Questionnaire (AUDIT-C) 1. How often do you have a drink containing alcohol?: Never Total Score: 0 PELON-7 AMB Questionnaire PELON-7 Date PELON - 7 assessed: 12/25/24 Feeling nervous, anxious, or on edge: 0 = Not at all Not being able to stop or control worryin = Not at all Worrying too much about different things: 0 = Not at all Trouble relaxin = Not at all Being so restless that it is hard to sit still: 0 = Not at all Becoming easily annoyed or irritable: 0 = Not at all Feeling afraid as if something awful might happen: 0 = Not at all Total PELON-7 score (0-4 normal; 5-9 mild; 10-14 moderate; 15-21 severe): 0 Source: Developed by Drs. Carmine Griffin, Urszula Hidalgo, Cash Shepherd and colleagues, with an educational erin from [employer]. Review of Systems Const Denies body aches, Denies chills, Denies fever(s), Denies headache(s) and Denies poor appetite Eyes Reports no additional complaints ENT Denies Normal hearing present, Reports dysphagia, Denies dizziness, Denies headache(s), Denies odynophagia and Reports tinnitus Card Denies chest pain, Denies syncope, Denies edema, Denies irregular heart rhythm, Denies lightheadedness and Denies dyspnea Resp Denies cough and Denies dyspnea GI Denies abdominal pain, Denies constipation, Reports dysphagia, Denies diarrhea, Denies nausea, Denies odynophagia and Denies vomiting Reports no additional complaints Musc Reports no additional complaints and Denies abnormal gait Skin/Breast Reports system reviewed and no additional complaints, except as documented Neuro Denies Normal hearing present, Denies abnormal gait, Denies dizziness, Denies syncope and Denies headache(s) Psych Reports no additional complaints Physical exam (Primary Care) Vital Signs: Last Vital Signs Temp 96.9 F 12/25/24 09:38 Pulse 68 12/25/24 09:38 BP 110/60 12/25/24 09:38 Pulse Ox 98 12/25/24 09:38 Oxygen Delivery Method Room Air 12/25/24 09:38 BMI result Body Mass Index 22.5 Tobacco/Smoking Status: Tobacco use Status Tobacco use date assessed 12/25/24 12/25/24 09:40 Patient Tobacco Use Status Former Tobacco user 12/25/24 09:40 Tobacco use type Cigarette 12/25/24 09:40 e-Cigarette/Vaping Use Never Used 12/25/24 09:40 PHQ-9: PHQ-9 Score PHQ-9: Total score 0 12/25/24 09:45 Depression Screening Interpretation: Negative Thrive Assessment: Date of Thrive Assessment Date Thrive assessed 12/25/24 12/25/24 09:40 Currently or been in a relationship where the following occur: No concerns reported Const General: cooperative, healthy appearing, comfortable and no acute distress Orientation/consciousness: patient oriented x3 HENMT Head: Yes normocephalic Ears: hearing grossly normal bilaterally, TM's normal bilaterally and EAC's normal General nose exam: Normal external nose present Eyes General: appearance normal, both eyes and all related structures Conjunctivae: conjunctivae normal Neck Neck: Yes full ROM and Yes no lymphadenopathy Resp Effort & Inspection: normal respiratory effort Auscultation: clear to auscultation bilaterally, no crackles, no rales, no rhonchi and no wheezes Cardio Rate: regular rate Rhythm: regular rhythm Skin General skin exam: no rashes or lesions noted Neuro General: patient oriented x3 Cranial nerves: No Normal hearing present Gait exam (Neuro): Normal gait present Extrem General: Yes normal to inspection, Yes full ROM and No edema Psych Affect: normal affect Attitude: cooperative Insight: Good insight present (Psych) Judgement: Good judgement present (Psych) Results AMB Hemoglobin A1c AMB Hemoglobin A1c 5.7 % Last Edit by ALZIE Hu on 12/25/24 09:49 Results Reviewed Results Reviewed: Laboratory Last Values Hgb A1c (Clinic) 5.7 % (4.0-6.0) 12/25/24 09:36 Coding Level of Care Code Est Pt Level 4 (07002) Diagnoses Hypertension, unspecified type I10 Hypertension type: unspecified Aneurysm of ascending aorta without rupture I71.21 Presence of rupture: without rupture Atherosclerotic cardiovascular disease I25.10 Impaired glucose tolerance R73.02 Hypercholesterolemia E78.00 Mild intermittent asthma without complication J45.20 Asthma complication type: uncomplicated Asthma persistence: intermittent Asthma severity: mild Dysphagia R13.10 Hearing loss H91.90 Tinnitus H93.19 Assessment & Plan Assessment & Plan (1) Hypertension: Code(s): I10 - Essential (primary) hypertension Category: Medical Qualifiers: Hypertension type: unspecified Qualified Code(s): I10 - Essential (primary) hypertension Plan: Continue on current blood pressure medication. Avoid salt intake and encourage healthy diet and regular exercise. (2) Ascending aortic aneurysm: Comment: December 2022 /June 2024 4.2 cm no growth Code(s): I71.21 - Aneurysm of the ascending aorta, without rupture Category: Medical Qualifiers: Presence of rupture: without rupture Qualified Code(s): I71.21 - Aneurysm of the ascending aorta, without rupture Plan: Patient was last seen by Cardiology 01/2024 advised to have a six-month follow up which was not completed. Advised patient to reschedule cardiology appointment and continue to follow with them for repeat imaging. I also did personally send a message to Cardiology relying this message. (3) Atherosclerotic cardiovascular disease: Code(s): I25.10 - Atherosclerotic heart disease of [place] coronary artery without angina pectoris Category: Medical Plan: Work on blood pressure, cholesterol, diabetes control. (4) Impaired glucose tolerance: Code(s): R73.02 - Impaired glucose tolerance (oral) Category: Medical Plan: Decrease the amount of carbohydrates such as pasta, bread, rice, and potatoes and limit the amount of sweets. Although fruits are generally healthy they should be eaten in moderation as they are still high in sugar. Hemoglobin A1c goal of less than 7%. A1c at goal today 5.6%. (5) Hypercholesterolemia: Code(s): E78.00 - Pure hypercholesterolemia, unspecified Category: Medical Plan: Avoid foods that are high in cholesterol such as red meat, fried foods, eggs and baked goods. Triglyceride goal of less than 150 and LDL goal of less than 70. Cholesterol at goal on last labs currently on rosuvastatin 20 mg (6) Asthma: Code(s): J45.909 - Unspecified asthma, uncomplicated Category: Medical Qualifiers: Asthma complication type: uncomplicated Asthma persistence: intermittent Asthma severity: mild Qualified Code(s): J45.20 - Mild intermittent asthma, uncomplicated Plan: Asthma not well controlled on present medications we will switch Symbicort to Trelegy Ellipta and referral to pulmonology placed. Avoid triggers such as allergies. (7) Dysphagia: Code(s): R13.10 - Dysphagia, unspecified Category: Medical Plan: Ordered for barium swallow test for further evaluation of difficulty swallowing at last visit. Advised patient in the meantime to take smaller bites of food with plenty of water to avoid choking or aspirating. Reminded patient to reach out to schedule the barium swallow study and referral updated. Advised patient to reach out to the office if he does not get a phone call in the next week. (8) Hearing loss: Code(s): H91.90 - Unspecified hearing loss, unspecified ear Category: Medical Plan: Patient continues to have hearing loss and ringing in bilateral ears advised him at his last visit to undergo hearing test which was not scheduled. I updated the referral today as tinnitus and hearing loss has been worsening and advised patient to reach out to the office if he does not get a phone call the next week to schedule this. (9) Tinnitus: Code(s): H93.19 - Tinnitus, unspecified ear Category: Medical Plan: See above plan for hearing loss Plan This note was constructed using voice recognition software. While every effort has been made to ensure accuracy and mussel farmer, still areas may have been included sometimes these areas may affect the content or meeting of the given symptoms. Total time spent caring for the patient today was 30 minutes. This includes time spent before the visit reviewing the chart, time spent during the visit, and time spent after the visit and documentation. Orders: Orders AMB Hemoglobin A1c Today R73.02 - Impaired glucose tolerance (oral) Medications: Refilled rosuvastatin (Crestor) 20 mg PO DAILY 90 tabs 3RF losartan 25 mg PO DAILY 30 tabs 3RF I10 - Essential (primary) hypertension
[2024-12-25 09:38] VITALS: BP 110/60; PULSE 68; TEMP 36.1; O2SAT 98; BMI 22.5
== END 2024-12-25 10:34 | disposition home or self-care (01) ==
PROVIDERS: PCP Internal Medicine
DX: I10 Essential (primary) hypertension (principal); I71.21 Aneurysm of the ascending aorta, without rupture; I25.10 Atherosclerotic heart disease of native coronary artery without angina pectoris; R73.02 Impaired glucose tolerance (oral); E78.00 Pure hypercholesterolemia, unspecified; J45.20 Mild intermittent asthma, uncomplicated; R13.10 Dysphagia, unspecified; H91.90 Unspecified hearing loss, unspecified ear; H93.19 Tinnitus, unspecified ear

== ENCOUNTER → 2024-12-25 09:31 | Outpatient (BNVA) | payer OTHER, SELFPAY | PROVIDERS: PCP Internal Medicine | DX: I10 Essential (primary) hypertension (principal); I71.21 Aneurysm of the ascending aorta, without rupture; I25.10 Atherosclerotic heart disease of native coronary artery without angina pectoris; R73.02 Impaired glucose tolerance (oral); E78.00 Pure hypercholesterolemia, unspecified; J45.20 Mild intermittent asthma, uncomplicated; R13.10 Dysphagia, unspecified; H91.90 Unspecified hearing loss, unspecified ear; H93.19 Tinnitus, unspecified ear | CPT/HCPCS: 83036; 99212 ==

== ENCOUNTER 2024-12-31 08:36 | Outpatient (AMB) | payer OTHER, SELFPAY ==
[2024-12-31 08:39] VITALS: BP 100/52; PULSE 78; BMI 22.5
--- NOTE | 2024-12-31 08:39 | MHC.OFFVIS ---
Vital Signs 12/31/24 08:39 Height 5 ft 5 in Weight 135 lb 5.821 oz BMI 22.5 BP 100/52 L Blood Pressure Location Lt brachial Position Sitting Pulse 78 Pulse Source Monitor Intake Visit Reasons: f/u requested by pcp Application Development Intern Required: No Application Development Intern Name: voice menchaca [id number] Allergies lisinopril Adverse Reaction (Intermediate, Verified 12/31/24 08:42) Cough Medication List - Last Reconciled 12/31/24 by Rozina Martino NP-C acetaminophen (Tylenol) 650 mg (2 x 325 mg) PO Q6H PRN albuterol sulfate 2.5 mg (3 mL) inhalation Q4H PRN albuterol sulfate 90 mcg/actuation (Ventolin HFA) 2 puffs inhalation QID PRN alcrumpyjom-dllclxhfm-tpzpkrtq 100-62.5-25 mcg (Trelegy Ellipta) 1 inh inhalation DAILY losartan 25 mg PO DAILY nebulizers (Aeroneb Go Nebulizer) As directed updraft treatment for albuterol Q 4 p.r.n. rosuvastatin (Crestor) 20 mg PO DAILY HPI HPI f/u requested by pcp: Details: Blake is a 79-year-old male with past medical history of hyperlipidemia, impaired fasting glucose, asthma, abnormal EKG, abnormal nuclear stress test, presumed coronary artery disease, dilated ascending aorta who presents for follow-up. Today he reports he has been feeling very well. He denies any concerning symptoms. No chest discomfort, shortness of breath, lightheadedness, palpitations, presyncope, syncope, PND, orthopnea or edema. He tries to remain physically active. When the weather improves he will resume bike riding. Taking meds as directed. Certified wicker molded candles used. [facility] Medical History Tinnitus, bilateral Plantar nerve lesion Constipated Abnormal EKG Abnormal stress ECG Ascending aortic aneurysm Atherosclerotic cardiovascular disease Impaired glucose tolerance Epididymo-orchitis SNHL (sensory-neural hearing loss), asymmetrical Hemorrhoid Hypercholesterolemia Vitamin D deficiency Asthma BPH (benign prostatic hyperplasia) Surgical History Anal fistula History of cataract surgery Family History Father No problems noted. Mother No problems noted. Social History Housing: Apartment Alcohol intake: never Patient Tobacco Use Status: Former Tobacco user Tobacco use type: Cigarette Years Smoked: 25 +/-, started 15yo, 1.5PPD, e-Cigarette/Vaping Use: Never Used Second Hand Smoke Exposure: Yes service: No Current occupational status: retired Cognitive needs: No Hearing needs: No Vision needs: Yes Review of Systems Const All systems reviewed & are unremarkable except as noted in HPI and below ENT Denies dizziness Card Denies chest pain, Denies chest pain at rest, Denies chest pain with activity, Denies rapid heart rate, Denies pedal edema, Denies edema, Denies leg edema, Denies lightheadedness, Denies palpitations, Denies dyspnea, Denies dyspnea on exertion and Denies orthopnea Resp Denies cough, Denies dyspnea and Denies dyspnea on exertion GI Denies hematochezia and Denies change in stool character Musc Denies abnormal gait, Denies limited range of motion, Denies muscle cramps, Denies muscle weakness, Denies numbness, Denies radiating pain into limb, Denies stiffness and Denies tingling Neuro Denies abnormal gait, Denies dizziness, Denies numbness and Denies tingling Endo Denies palpitations Physical Exam Vital Signs: Last Vital Signs Pulse 78 12/31/24 08:39 BP 100/52 L 12/31/24 08:39 BMI result Body Mass Index 22.5 Const General: cooperative, healthy appearing, comfortable and no acute distress Orientation/consciousness: patient oriented x3 Neck Neck: Yes normal visual inspection Resp Effort & Inspection: normal respiratory effort Auscultation: clear to auscultation bilaterally, no rales, no rhonchi and no wheezes Cardio Jugular venous distension: no JVD Rate: regular rate Rhythm: regular rhythm Heart sounds: S1 normal heart sound present, S2 normal heart sound present, no murmurs and no rubs Neuro General: patient oriented x3 Extrem General: Yes normal to inspection, No no pedal edema and No calf tenderness Psych Appearance: grossly normal Mental Status: mental status grossly normal Speech and movement: Normal speech and movement present Office Procedures EKG Details: Today, read by me, SR, nonspecific T wave abn, rate 78, QTc 408ms [id number], Complete Assessment & Plan Assessment & Plan (1) Atherosclerotic cardiovascular disease: Code(s): I25.10 - Atherosclerotic heart disease of [place] coronary artery without angina pectoris Category: Medical Plan: Presumed coronary artery disease, stable condition. Prior EKGs with septal Q-wave. Echocardiogram done 07/25/2024 shows EF 60-65 %, no valve abnormalities, mild dilation of the ascending aorta 4.2 cm. No regional wall motion abnormalities. Notes indicate prior nuclear stress test showing slight decreased uptake in the inferior lateral wall that improved on CT attenuation correction, felt to be normal but with EKG findings could also indicate mild fixed inferior lateral defect from prior nontransmural infarct. A nuclear stress test was done on 01/06/2023 showing likely normal myocardial perfusion imaging. EKG done today shows normal sinus rhythm with nonspecific T-wave abnormality, can not exclude prior anterior infarct, rate 78. Today he reports feeling well with no anginal sounding symptoms. Will continue with risk factor modification. He had been on aspirin but previously stopped due to easy bruising. He is on rosuvastatin with ideal LDL goal less than 70 in patient with diabetes. Labs done 09/19/2024 showed LDL 73. He is on lisinopril 10 mg daily for blood pressure control. Blood pressure today 100/52. Signs and symptoms of angina reviewed. Cardiology follow-up in 6 months, sooner if needed (2) Ascending aortic aneurysm: Comment: December 2022 /June 2024 4.2 cm no growth Code(s): I71.21 - Aneurysm of the ascending aorta, without rupture Category: Medical Qualifiers: Presence of rupture: without rupture Qualified Code(s): I71.21 - Aneurysm of the ascending aorta, without rupture Plan: Mildly dilated ascending aorta 4.2 cm on last echocardiogram. Will follow with periodic echoes (3) Abnormal EKG: Code(s): R94.31 - Abnormal electrocardiogram [ECG] [EKG] Category: Medical Plan: Can not exclude prior anterior infarct (4) Hypertension: Code(s): I10 - Essential (primary) hypertension Category: Medical Qualifiers: Hypertension type: unspecified Qualified Code(s): I10 - Essential (primary) hypertension Plan: Blood pressure low normal today. No med changes made. (5) Hypercholesterolemia: Code(s): E78.00 - Pure hypercholesterolemia, unspecified Category: Medical Plan: LDL goal ideally less than 70. Continue rosuvastatin. Plan Time spent on chart review, documentation, interview and assessment Coding Level of Care Code Est Pt Level 4 (48564) Complex EM visit Add On G2211 Diagnoses Atherosclerotic cardiovascular disease I25.10 Aneurysm of ascending aorta without rupture I71.21 Presence of rupture: without rupture Abnormal EKG R94.31 Hypertension, unspecified type I10 Hypertension type: unspecified Hypercholesterolemia E78.00 CPT Codes EKG - CPT: [id number], Complete ([id number]) Time Spent (min) 28
== END 2024-12-31 09:05 | disposition home or self-care (01) ==
PROVIDERS: PCP Internal Medicine; Visit Provider Nurse Practitioner Family
DX: I25.10 Atherosclerotic heart disease of native coronary artery without angina pectoris (principal); I71.21 Aneurysm of the ascending aorta, without rupture; R94.31 Abnormal electrocardiogram [ECG] [EKG]; I10 Essential (primary) hypertension; E78.00 Pure hypercholesterolemia, unspecified
CPT/HCPCS: 93010; 99214; G2211

== ENCOUNTER → 2024-12-31 08:36 | Outpatient (BNVA) | payer OTHER, SELFPAY | PROVIDERS: PCP Internal Medicine; Visit Provider Nurse Practitioner Family | DX: I25.10 Atherosclerotic heart disease of native coronary artery without angina pectoris (principal); I71.21 Aneurysm of the ascending aorta, without rupture; I10 Essential (primary) hypertension; R94.31 Abnormal electrocardiogram [ECG] [EKG]; E78.00 Pure hypercholesterolemia, unspecified | CPT/HCPCS: 93005; 99212 ==

== ENCOUNTER 2025-01-24 13:42 | Outpatient (REF) | payer OTHER, SELFPAY ==
--- NOTE | 2025-01-24 13:47 | PFT_ITS ---
Flows: FEV1: 80 % of predicted at 1.75 L FVC: 97 % of predicted at 2.80 L FEV1/FVC: 63 % Bronchodilator response: Present Volumes: Total lung capacity: 82 % of predicted at 4.40 L Residual volume: 85 % of predicted at 1.84 L Slow vital capacity: 84 % of predicted at 2.55 L Expiratory reserve volume: 96 % of predicted at 0.77 L Diffusion capacity: Mildly decreased, corrects to normal after adjustment for alveolar ventilation. Impression: [id number] obstructive ventilatory defect with positive bronchodilator response. Decreased diffusion capacity suggests emphysema. MTDD
[2025-01-24 14:28] VITALS: PULSE 61; O2SAT 97
== END 2025-01-24 13:43 | disposition home or self-care (01) ==
LOC: HO.RESP 13:42
PROVIDERS: PCP Internal Medicine; Visit Provider Internal Medicine Pulmonary Disease
DX: J45.20 Mild intermittent asthma, uncomplicated (principal)
CPT/HCPCS: 94010; 94640; 94727; 94729

== ENCOUNTER → 2025-01-24 13:47 | Outpatient (BNV) | payer OTHER, SELFPAY | PROVIDERS: PCP Internal Medicine; Visit Provider Internal Medicine Pulmonary Disease | DX: J45.20 Mild intermittent asthma, uncomplicated (principal) | CPT/HCPCS: 94060; 94727; 94729 ==

== ENCOUNTER 2025-01-29 08:34 | Outpatient (AMB) | payer OTHER, SELFPAY ==
[2025-01-29 08:38] VITALS: BP 128/62; PULSE 70; O2SAT 99; BMI 22.9
--- NOTE | 2025-01-29 08:38 | A.OFFVIS_ITS ---
Vital Signs 01/29/25 08:38 Height 5 ft 5 in Weight 137 lb 12.623 oz BMI 22.9 BP 128/62 Blood Pressure Location Lt brachial Position Sitting Pulse 70 Pulse Source Doppler Pulse Oximetry (%) 99 Oxygen Delivery Method Room Air Intake Visit Reasons: Asthma/ PFT FU Unit Clerk Required: Yes Unit Clerk Name: Nanci Silva Mirna Allergies lisinopril Adverse Reaction (Intermediate, Verified 01/29/25 08:42) Cough HPI HPI Asthma/ PFT FU: Details: 79-year-old gentleman, former 30 pack-year smoker, quit 40 years prior now followed for moderate persistent asthma, environmental allergies, and pulmonary aspiration. Patient has been using trilogy and albuterol MDI/nebs with good control of his asthma symptoms. He continues to complain of cough that worsens with food intake. He is also complaining of allergic rhinitis symptoms. [facility] Medical History Tinnitus, bilateral Plantar nerve lesion Constipated Abnormal EKG Abnormal stress ECG Ascending aortic aneurysm Atherosclerotic cardiovascular disease Impaired glucose tolerance Epididymo-orchitis SNHL (sensory-neural hearing loss), asymmetrical Hemorrhoid Hypercholesterolemia Vitamin D deficiency Asthma BPH (benign prostatic hyperplasia) Surgical History Anal fistula History of cataract surgery Family History Father No problems noted. Mother No problems noted. Social History Housing: Apartment Alcohol intake: never Patient Tobacco Use Status: Former Tobacco user Tobacco use type: Cigarette Years Smoked: 25 +/-, started 15yo, 1.5PPD, e-Cigarette/Vaping Use: Never Used Second Hand Smoke Exposure: Yes service: No Current occupational status: retired Cognitive needs: No Hearing needs: No Vision needs: Yes Review of Systems Const Denies daytime sleepiness, Denies excessive sweating, Denies fatigue, Denies fever(s), Denies lethargy, Denies malaise, Denies night sweats, Denies snoring and Denies weight loss Eyes Denies blurry vision and Denies itchy eyes ENT Reports nasal congestion, Reports post nasal drip, Denies sinus pain, Denies sinus pressure and Denies other ( Thrush) Card Denies chest pain, Denies pedal edema, Denies dyspnea, Denies orthopnea and Denies paroxysmal nocturnal dyspnea Resp Reports cough, Denies hemoptysis, Denies excessive phlegm production, Denies dyspnea, Denies snoring and Denies wheezing GI Denies abdominal pain and Denies heartburn Musc Denies myalgias, Denies arthralgias and Denies joint swelling Skin/Breast Denies rash Neuro Denies memory loss and Denies seizure-like activity Psych Denies abnormal sleep pattern, Denies anxiety and Denies memory loss Endo Denies excessive sweating, Denies fatigue and Denies heat intolerance Leonel/Lymph Denies easy bruising Aller/Immun Denies itchy eyes, Denies seasonal rhinorrhea and Denies wheezing Physical Exam Vital Signs: Last Vital Signs Pulse 70 01/29/25 08:38 BP 128/62 01/29/25 08:38 Pulse Ox 99 01/29/25 08:38 Oxygen Delivery Method Room Air 01/29/25 08:38 BMI result Body Mass Index 22.9 Const General: no acute distress and alert Nutritional Appearance: not obese Orientation/consciousness: Other orientation findings ( oriented) HEENT Head: Yes atraumatic Eyes General: appearance normal, both eyes and all related structures Sclerae: sclerae normal EOM: EOMs intact bilaterally Neck Neck: Yes supple Lymphatic: no lymphadenopathy noted Resp Effort & Inspection: normal respiratory effort and no use of accessory muscles Auscultation: clear to auscultation bilaterally Cardio Rate: regular rate Rhythm: regular rhythm Heart sounds: no gallops, no murmurs and no rubs Skin General skin exam: other ( warm) Extrem General: No clubbing, No cyanosis and No edema Assessment & Plan Assessment & Plan (1) Asthma: Code(s): J45.909 - Unspecified asthma, uncomplicated Category: Medical Qualifiers: Asthma severity: mild Asthma persistence: intermittent Asthma complication type: uncomplicated Qualified Code(s): J45.20 - Mild intermittent asthma, uncomplicated Plan: Results of pulmonary function test reviewed, underlying at least moderate persistent asthma with fixed moderate obstructive ventilatory defect. Now well controlled on current regimen of Trelegy and albuterol MDI/nebs. Continue current regimen. (2) Allergic rhinitis: Code(s): J30.9 - Allergic rhinitis, unspecified Category: Medical Plan: Will start on nasal ipratropium. (3) Dysphagia: Code(s): R13.10 - Dysphagia, unspecified Category: Medical Plan: Will obtain modified barium swallow. Orders: Orders FL Modified Barium Swallow Today R13.10 - Dysphagia, unspecified Medications: New ipratropium bromide administer into each nostril 2 sprays intranasal TID-QID PRN 15 mL 3RF allergy symptoms Coding Level of Care Code Est Pt Level 4 (76524) Complex EM visit Add On G2211 Diagnoses Mild intermittent asthma without complication J45.20 Asthma severity: mild Asthma persistence: intermittent Asthma complication type: uncomplicated Allergic rhinitis J30.9 Dysphagia R13.10
== END 2025-01-29 09:00 | disposition home or self-care (01) ==
PROVIDERS: PCP Internal Medicine; Visit Provider Internal Medicine Pulmonary Disease
DX: J45.20 Mild intermittent asthma, uncomplicated (principal); J30.9 Allergic rhinitis, unspecified; R13.10 Dysphagia, unspecified
CPT/HCPCS: 99214; G2211

== ENCOUNTER → 2025-01-29 08:34 | Outpatient (BNVA) | payer OTHER, SELFPAY | PROVIDERS: PCP Internal Medicine; Visit Provider Internal Medicine Pulmonary Disease | DX: J45.20 Mild intermittent asthma, uncomplicated (principal); J30.9 Allergic rhinitis, unspecified; R13.10 Dysphagia, unspecified | CPT/HCPCS: 99212 ==

== ENCOUNTER 2025-03-12 14:01 | Outpatient (REF) | payer OTHER, SELFPAY ==
--- NOTE | ~2025-03-12 | FL_ITS ---
EXAMINATION: Modified Barium Swallow CLINICAL INFORMATION: Dysphagia. COMPARISON: None. TECHNIQUE: Modified barium swallow was performed under lateral fluoroscopy with patient in standing position. Barium mixed with solids and liquids of different consistencies was administered by the speech pathologist. Examination was recorded in the fluoroscopy suite. FINDINGS: There was no evidence of laryngeal penetration, glottic or subglottic aspiration on this examination. No significant cricopharyngeal achalasia. Of incidental note, a ventrally projecting C6-7 cervical osteophyte mildly indents upon the superior cervical esophagus, without significant mass effect or subsequent ballooning of the hypopharynx. This is likely clinically insignificant. FLUOROSCOPY TIME: 1 minute, 7 seconds Number of Spot Images: N/A DOSE AREA PRODUCT: 241.5 uGy-m2 (microgray-meter squared) FL/FL Modified Barium Swallow IMPRESSION: 1. No evidence of laryngeal penetration, glottic or subglottic aspiration. See above. Refer to the speech therapy report to follow for further detail. Electronically signed by: Alvino Dooley MD 03/13/2025 08:09 AM EDT
--- NOTE | 2025-03-12 16:31 | MHC.SL.IMP ---
Date of Plan of Treatment: 03/12/25 Onset of Symptoms/Illness: 03/12/24 Date Treatment Started: 03/12/25 Admitting Diagnosis: Dysphagia Primary Speech & Language Diagnosis: R13.12 Oropharyngeal Phase Dysphagia Reason for Today's Visit: 89489 Modified Barium Swallow Study Pre-evaluation Dietary Consistencies: Regular Pre-evaluation Liquid Consistency: Thin Pre-evaluation Medication Administration: Whole with Liquid Medical History: Modified Barium Swallow Study Fluoroscopic Evaluation of Swallowing Function CPT Code 74386 Evaluation Year: 2024 Reason for Study: Difficulty swallowing Referring Physician: Donato Rios MD Evaluating Clinician: Michelle Fox MA, CCC-RETINAL SURGEON Study Number: 1 Patient Name: Blake Perla Status: Outpatient, Ambulatory Age: 80 Gender: Male Medical History Medical History Tinnitus, bilateral Plantar nerve lesion Constipated Abnormal EKG Abnormal stress ECG Ascending aortic aneurysm Atherosclerotic cardiovascular disease Impaired glucose tolerance Epididymo-orchitis SNHL (sensory-neural hearing loss), asymmetrical Hemorrhoid Hypercholesterolemia Vitamin D deficiency Asthma BPH (benign prostatic hyperplasia) Surgical History Anal fistula History of cataract surgery Current (pre-evaluation) Intake/Diet: Route: PO Diet Grade: Regular Liquid Consistencies: Thin Pre-Study Functional Oral Intake Scale (FOIS): 7- Total oral intake with no restrictions Pain: None reported at time of study SUBJECTIVE: Patient is an 80 year old male referred for a modified barium swallow study (MBSS) by Dr. Rios. Patient is a former smoker, quit 40 years ago. He is followed by the Pulmonology office for moderate persistent asthma, environmental allergies, and pulmonary aspiration. Patient reports coughing after swallowing food, resulting in regurgitation of food sometimes. Patient denies vomiting and denies coughing or choking with intake of liquids. He says he takes sips of water to get food down and this usually helps. Patient denies odynophagia and globus sensation. He reports his symptoms started 2 years ago. Oral Motor Exam Facial Symmetry: Symmetrical Mouth Occlusion: Normal Oral-Facial Teeth Characteristics: Partially Missing Oral-Facial Teeth Miscellaneous Observation: Partially missing natural dentition, including central incisors on top jaw Oral-Facial Smile (Lips) Description: Normal Oral-Facial Puff Cheeks Description: Normal Tongue Size: Normal Tongue Excursion Description: Normal Tongue Range of Movement Description: Normal Tongue Speed of Movement Description: Normal Tongue Strength of Movement (against opposing pressure): Tongue Movement Characteristics: Normal/Absent Is patient able to manage secretions?: Yes Is patient able to produce volitional cough?: Yes Food and Liquid Trials: Oral Impairment: Lip Closure: Did not test Oral Impairment: Tongue Control During Bolus Hold: 1=Escape to lateral buccal cavity/floor of mouth (FOM) Oral Impairment: Bolus Preparation/Mastication: 1=Slow prolonged chewing/mashing with complete re-collection Oral Impairment: Bolus Transport/Lingual Motion: 1= Delayed initiation of tongue motion Oral Impairment: Oral Residue: 1=Trace residue lining oral structures Oral Impairment:Initiation of Pharyngeal Swallow: 0=Bolus head at posterior angle of ramus (first hyoid excursion) Pharyngeal Impairment: Soft Palate Elevation: 0=No bolus between soft palate (SP)/pharyngeal wall (PW) Pharyngeal Impairment: Laryngeal Elevation: 1=Partial thyroid cartilage/arytenoids to epiglottic petiole movement Pharyngeal Impairment: Anterior Hyoid Excursion: 1=Partial anterior movement Pharyngeal Impairment: Epiglottic Movement: 0=Complete inversion Pharyngeal Impairment: Laryngeal Vestibular Closure:: 0=Complete: no air/contrast in laryngeal vestibule Pharyngeal Impairment: Pharyngeal Stripping Wave: 0=Present: complete Pharyngeal Impairment: Pharyngeal Contraction: Did not test Pharyngeal Impairment: Pharyngoesophageal Segment Openin=Partial distention/partial duration: partial obstruction of flow Pharyngeal Impairment: Tongue Base (TB) Retraction: 0=No contrast between tongue base and posterior pharyngeal wall Pharyngeal Impairment: Pharyngeal Residue: 2=Collection of residue within or on pharyngeal structures Pharyngeal Impairment: Esophageal Clearance Upright Position: Did not test Impressions and Recommendations OBJECTIVE: Time-out: performed at 15:00 Evaluation Start: 14:30; Stop: 14:40 Patient Positioning: Standing Viewing Planes: LATERAL ONLY Contrast: MBSImP? Standardized Protocol using commercially prepared, standardized Barium viscosities, including: Varibar? THIN LIQUID (40% w/v, <15 cps) , Varibar? PUDDING (40% w/v, <1525-5767 cps) , 1/2 Shortbread Cookie (1 x1 x.25 ) MBSImP ID: [id number] [facility] Results: Lip closure for intraoral bolus containment could not be assessed due to logistical reasons not related to physiologic impairment. Tongue control during bolus hold allowed bolus escape to the lateral buccal cavity/floor of mouth. Bolus preparation and mastication resulted in slow, prolonged chewing/mashing but with complete re-collection. Bolus transport/lingual motion demonstrated delayed initiation of tongue motion. Oral residue was a trace, lining oral structures. Initiation of the pharyngeal swallow occurred as the bolus head reached the posterior angle of the mandibular ramus. Soft palate elevation resulted in no bolus between the soft palate and the pharyngeal wall. Laryngeal elevation was decreased, with partial superior movement of the thyroid cartilage/partial approximation of the arytenoids to the epiglottic petiole. Anterior hyoid excursion demonstrated partial anterior movement. Epiglottic movement resulted in complete inversion. Laryngeal vestibular closure was complete, as indicated by no air or contrast within the laryngeal vestibule at the height of the swallow. Pharyngeal stripping wave was present and complete. Pharyngeal contraction could not be determined due to logistical reasons not related to physiologic impairment. Pharyngoesophageal segment opening demonstrated partial distension/partial duration, with partial obstruction of bolus flow. Tongue base retraction allowed no contrast between the retracted tongue base and the posterior pharyngeal wall. Pharyngeal residue was a collection of residue within or on pharyngeal structures. Esophageal clearance in the upright position could not be assessed due to logistical reasons not related to physiologic impairment. Oral Impairment Score: 3 (absence of score, component 1) Pharyngeal Impairment Score: 5 (absence of score, component 13) Esophageal Impairment Score: --- (absence of score, component 17) Laryngeal Penetration and Aspiration: Neither penetration nor aspiration was observed in today's study with Cookie, Pudding-thick, Thin. ASSESSMENT: This exam was conducted by the radiologist and the speech pathologist. Patient was standing for lateral view only. He was able to feed himself without difficulty and trialed the following consistencies: thin (via individual cup sips and sequential cup sips), puree, and regular solid. There was some escape of bolus to the floor of mouth but no premature posterior escape. Mastication was mildly prolonged, characterized by anterior chewing pattern. Posterior lingual motion was mildly delayed. Trace lingual residue cleared with dry swallows. Timely pharyngeal swallow trigger, initiated as the bolus head reached the posterior angle of ramus. No evidence of nasopharyngeal reflux. Mildly reduced laryngeal elevation, but with complete epiglottic inversion and complete laryngeal vestibular closure. No evidence of penetration or aspiration during this exam. There was mild collection of residue on the tongue base, in the valleculae, and in the pyriforms, which cleared with a dry swallow or liquid wash. Partial distention and partial obstruction of flow through the pharyngoesophageal segment opening, contributing to retention in the pyriforms and below the UES. Residue cleared with subsequent swallows. Liquid Intake Recommendation: Thin Liquid Intake Strategies: Dietary Recommendations: Regular Medication Administration: Whole with Liquid Please contact the pharmacy regarding appropriate crushable or liquid drug formulations that are available whenever modified delivery is recommended. Compensatory Strategies Recommended: Sitting Upright (90 deg), Double Swallow, Small Bites and Sips, Alternate Liquids/Solids, Rate of Ingestion Change Recommendation for Speech Therapy: NA:Typical Evaluation Text Comment: Intake Recommendations: Route: PO Diet Grade: Regular Liquid Consistencies: Thin Post-Study Functional Oral Intake Scale (FOIS): 7- Total oral intake with no restrictions Patient presents with mild oropharyngeal dysphagia, secondary to missing dentition, with slowed mastication, delayed lingual transport, and trace oral residue which cleared with secondary swallows. Good airway protection with complete epiglottic inversion and laryngeal vestibular closure. No evidence of aspiration or penetration during this exam. Note partial distention and partial obstruction of flow through the UES contributing to pharyngeal retention. Patient was able to clear retention in the valleculae, pyriforms, and below the UES with dry swallows or liquid wash. Suggested Referrals: The patient might benefit from a referral to: Gastroenterology Indication for Referral: Partial distention through UES, Radiologist noted mild cricopharyngeal achalasia. Patient c/o food regurgitation. Therapy Recommendations: Diet modification and further speech therapy is not indicated at this time. Patient is recommended to maintain upright positioning during PO intake, moisten food with sauces/gravies, chew food well and alternate with sips of liquid to promote oropharyngeal clearance. These strategies were discussed with the patient after the exam with assistance from a certified training program assistant. Patient verbalized understanding and denied having further questions at this time. Clinician - Supplemental, Miscellaneous Communication: It is important to note MBSS objective studies are snapshots in time and Patient function might vary with factors such as time of day or concomitant medical conditions. For this reason, the final treatment plan for this patient should rest with their medical care team. Additional recommendations should be considered with the totality of the Patient in mind. Thank for the opportunity to participate in the care of this patient. If you have any questions about the content of this report, please contact the [facility] at [facility]. Education: Education regarding findings from today's study and plans for therapy were provided to Patient only through Verbal Instruction. Understanding was expressed by the Patient only. Superintendent Transportation Clinician/Clinical Fellow: No Supervisory Statement: N/A Speech Language Pathologist: Michelle Fox M.A., CCC-RETINAL SURGEON
== END 2025-03-12 14:02 | disposition home or self-care (01) ==
LOC: HO.XRAY 14:01
PROVIDERS: PCP Internal Medicine; Visit Provider Internal Medicine Pulmonary Disease
DX: R13.10 Dysphagia, unspecified (principal)
CPT/HCPCS: 74230; 92611

== ENCOUNTER → 2025-03-12 14:30 | Outpatient (BNV) | payer OTHER, SELFPAY | PROVIDERS: PCP Internal Medicine; Visit Provider Radiology Diagnostic Radiology | DX: R13.10 Dysphagia, unspecified (principal) | CPT/HCPCS: 74230 ==

== ENCOUNTER 2025-03-25 07:56 | Outpatient (AMB) | payer OTHER, SELFPAY ==
--- NOTE | 2025-03-25 08:28 | MHC.PC.OV ---
Vital Signs 03/25/25 08:29 03/25/25 09:02 Height 5 ft 5 in Weight 136 lb 6 oz BMI 22.7 BP 90/58 L 122/58 L Blood Pressure Location Lt brachial Lt brachial Position Sitting Sitting Pulse 62 Pulse Source Pulse Oximeter Temp 97.3 F Temp Source Temporal Artery Scan Pulse Oximetry (%) 98 Oxygen Delivery Method Room Air Intake Visit Reasons: f/u Dysphagia Intake Note: Patient is here to follow up on Dysphagia. Marble Polisher Required: No Customer Marketing Assistant: Not Required per policy Accompanied by: Self / Same As Patient Allergies lisinopril Adverse Reaction (Intermediate, Verified 03/25/25 08:29) Cough Medication List - Last Reconciled 03/25/25 by Yuli Cunningham PA-C acetaminophen (Tylenol) 650 mg (2 x 325 mg) PO Q6H PRN albuterol sulfate 2.5 mg (3 mL) inhalation Q4H PRN albuterol sulfate 90 mcg/actuation (Ventolin HFA) 2 puffs inhalation QID PRN qewqjyozgys-dihnihlmb-hjnwodzg 100-62.5-25 mcg (Trelegy Ellipta) 1 inh inhalation DAILY ipratropium bromide 2 sprays intranasal TID-QID PRN losartan 25 mg PO DAILY nebulizers (Aeroneb Go Nebulizer) As directed updraft treatment for albuterol Q 4 p.r.n. rosuvastatin (Crestor) 20 mg PO DAILY Tobacco use date assessed: 03/25/25 Fall risk assessment: No Falls in past year Last assessed Fall Risk: 03/25/25 Dental Screening Dental Screen Date: 12/25/24 HPI f/u Dysphagia HPI Details 80-year-old male with past medical history of hypertension, ascending aortic aneurysm, atherosclerotic cardiovascular disease, impaired glucose tolerance, hypercholesterolemia, asthma, history of prostate cancer last seen 11/2024 coming in for follow up. In review of the notes, patient had barium swallow completed 02/2025 showing no evidence of laryngeal penetration, glottic or subglottic aspiration.?Speech pathology recommended no change in diet modification and no further speech therapy.?Recommending maintaining upright position during p.o. intake, moistened foods and alternate with sips of water.?Patient was seen by pulmonology 02/19 advised to continue on current medication regimen.?Patient was seen by Cardiology 12/2024 continue with risk factor modification and follow up in 6 months. Presenting with lower back pain for two days, localized to the right side, and non-radiating. The onset was sudden without apparent cause, such as heavy lifting or recent injury, with partial relief from Tylenol and ibuprofen. The patient follows up on hearing issues and reports a whooshing sound bilaterally. He awaits the scheduling of a hearing test. The patient reports a history of swallowing difficulty with no structural abnormalities indicated by a prior swallow study, with recommendations for smaller bites and fluid intake with meals. Blood pressure management is ongoing, with a recent reading of 122/58 recorded as lower than his typical range, without associated dizziness or lightheadedness. [facility] Medical History Tinnitus, bilateral Plantar nerve lesion Constipated Abnormal EKG Abnormal stress ECG Ascending aortic aneurysm Atherosclerotic cardiovascular disease Impaired glucose tolerance Epididymo-orchitis SNHL (sensory-neural hearing loss), asymmetrical Hemorrhoid Hypercholesterolemia Vitamin D deficiency Asthma BPH (benign prostatic hyperplasia) Surgical History Anal fistula History of cataract surgery Family History Father No problems noted. Mother No problems noted. Social History Housing: Apartment Alcohol intake: never Patient Tobacco Use Status: Former Tobacco user Tobacco use type: Cigarette Years Smoked: 25 +/-, started 15yo, 1.5PPD, e-Cigarette/Vaping Use: Never Used Second Hand Smoke Exposure: Yes service: No Current occupational status: retired Cognitive needs: No Hearing needs: No Vision needs: Yes Questionnaire PHQ-9 Over the last 2 weeks, how often have you been bothered by any of the following problems? 1. Little interest or pleasure in doing things: not at all 2. Feeling down, depressed, or hopeless: several days 3. Trouble falling or staying asleep, or sleeping too much: not at all 4. Feeling tired or having little energy: not at all 5. Poor appetite or overeating: not at all 6. Feeling bad about yourself - or that you are a failure or have let yourself or your family down: not at all 7. Trouble concentrating on things, such as reading the newspaper or watching television: several days 8. Moving or speaking so slowly that other people could have noticed. Or the opposite - being so fidgety or restless that you have been moving around a lot more than usual: not at all 9. Thoughts that you would be better off or of hurting yourself in some way: not at all Total score: 2 Depression Screening Interpretation: Positive Depression Screening Done: Yes Source: Developed by Drs. Carmine Griffin, Urszula Hidalgo, Cash Shepherd and colleagues, with an educational erin from [employer]. Thrive Questionnaire Date Thrive assessed: 12/25/24 I am a: Patient What is your living situation today?: I have a steady place to live Within the past 12 months, did the food you bought not last and you didn't have the money to get more?: Never true Within the past 12 months, did you worry whether your food would run out before you got money to buy more?: Never true Do you have trouble paying for medicines?: No Do you have trouble getting transportation to medical appointments?: No Do you have trouble paying your heating and electricity bill?: No Do you have trouble taking care of your child, family member or friend?: No Do you have trouble with day-to-day activities such as bathing, preparing meals, shopping, managing finances, etc.?: No Are you currently unemployed and looking for a job?: Yes Are you interested in more education?: No Please select the resources that you would like help with: None Currently or been in a relationship where the following occur: No concerns reported THRIVE Score: 0 AUDIT C Alcohol Use Questionnaire (AUDIT-C) 1. How often do you have a drink containing alcohol?: Never Total Score: 0 PELON-7 AMB Questionnaire PELON-7 Date PELON - 7 assessed: 12/25/24 Feeling nervous, anxious, or on edge: 0 = Not at all Not being able to stop or control worryin = Not at all Worrying too much about different things: 0 = Not at all Trouble relaxin = Not at all Being so restless that it is hard to sit still: 0 = Not at all Becoming easily annoyed or irritable: 0 = Not at all Feeling afraid as if something awful might happen: 0 = Not at all Total PELON-7 score (0-4 normal; 5-9 mild; 10-14 moderate; 15-21 severe): 0 Source: Developed by Drs. Carmine Griffin, Urszula Hidalgo, Cash Shepherd and colleagues, with an educational erin from [employer]. Review of Systems Const Denies body aches, Denies chills, Denies fever(s), Denies headache(s) and Denies poor appetite Eyes Reports no additional complaints ENT Reports dysphagia, Denies dizziness, Denies headache(s), Denies odynophagia and Reports tinnitus Card Denies chest pain, Denies lightheadedness and Denies dyspnea Resp Denies dyspnea GI Reports dysphagia and Denies odynophagia Reports no additional complaints Musc Denies abnormal gait and Reports back pain Skin/Breast Reports system reviewed and no additional complaints, except as documented Neuro Denies abnormal gait, Denies dizziness and Denies headache(s) Psych Reports no additional complaints Physical exam (Primary Care) Vital Signs: Last Vital Signs Temp 97.3 F 03/25/25 08:29 Pulse 62 03/25/25 08:29 BP 90/58 L 03/25/25 08:29 Pulse Ox 98 03/25/25 08:29 Oxygen Delivery Method Room Air 03/25/25 08:29 BMI result Body Mass Index 22.7 Tobacco/Smoking Status: Tobacco use Status Tobacco use date assessed 03/25/25 03/25/25 08:33 Patient Tobacco Use Status Former Tobacco user 03/25/25 08:33 Tobacco use type Cigarette 03/25/25 08:33 e-Cigarette/Vaping Use Never Used 03/25/25 08:33 PHQ-9: PHQ-9 Score PHQ-9: Total score 2 03/25/25 08:46 Depression Screening Interpretation: Positive Thrive Assessment: Date of Thrive Assessment Date Thrive assessed 12/25/24 03/25/25 08:33 Currently or been in a relationship where the following occur: No concerns reported Const General: cooperative, healthy appearing, comfortable and no acute distress Orientation/consciousness: patient oriented x3 HENMT Head: Yes normocephalic Ears: hearing grossly normal bilaterally, TM's normal bilaterally and EAC's normal General nose exam: Normal external nose present Eyes General: appearance normal, both eyes and all related structures Conjunctivae: conjunctivae normal Neck Neck: Yes full ROM and Yes no lymphadenopathy Resp Effort & Inspection: normal respiratory effort Auscultation: clear to auscultation bilaterally, no crackles, no rales, no rhonchi and no wheezes Cardio Rate: regular rate Rhythm: regular rhythm Back/Spine/Pelvis Other: tenderness to palpation of right lumbar paraspinal muscle. neg straight leg raise bilaterally. no tenderness to palpation over entirety of spine Skin General skin exam: no rashes or lesions noted Neuro General: patient oriented x3 Gait exam (Neuro): Normal gait present Extrem General: Yes normal to inspection, Yes full ROM and No edema Psych Affect: normal affect Attitude: cooperative Insight: Good insight present (Psych) Judgement: Good judgement present (Psych) Coding Level of Care Code Est Pt Level 3 (92044) Diagnoses Hypertension, unspecified type I10 Hypertension type: unspecified Atherosclerotic cardiovascular disease I25.10 Impaired glucose tolerance R73.02 Hypercholesterolemia E78.00 Mild intermittent asthma without complication J45.20 Asthma complication type: uncomplicated Asthma persistence: intermittent Asthma severity: mild Dysphagia R13.10 Hearing loss H91.90 Tinnitus H93.19 Back pain M54.9 Assessment & Plan Assessment & Plan (1) Hypertension: Code(s): I10 - Essential (primary) hypertension Category: Medical Qualifiers: Hypertension type: unspecified Qualified Code(s): I10 - Essential (primary) hypertension Plan: Continue on current blood pressure medication. Avoid salt intake and encourage healthy diet and regular exercise. (2) Atherosclerotic cardiovascular disease: Code(s): I25.10 - Atherosclerotic heart disease of [place] coronary artery without angina pectoris Category: Medical Plan: Work on blood pressure, cholesterol, diabetes control. (3) Impaired glucose tolerance: Code(s): R73.02 - Impaired glucose tolerance (oral) Category: Medical Plan: Decrease the amount of carbohydrates such as pasta, bread, rice, and potatoes and limit the amount of sweets. Although fruits are generally healthy they should be eaten in moderation as they are still high in sugar. Hemoglobin A1c goal of less than 7%. A1c at goal 5.6% at last visit. (4) Hypercholesterolemia: Code(s): E78.00 - Pure hypercholesterolemia, unspecified Category: Medical Plan: Avoid foods that are high in cholesterol such as red meat, fried foods, eggs and baked goods. Triglyceride goal of less than 150 and LDL goal of less than 70. Cholesterol at goal on last labs currently on rosuvastatin 20 mg (5) Asthma: Code(s): J45.909 - Unspecified asthma, uncomplicated Category: Medical Qualifiers: Asthma complication type: uncomplicated Asthma persistence: intermittent Asthma severity: mild Qualified Code(s): J45.20 - Mild intermittent asthma, uncomplicated Plan: Patient was seen by pulmonology recommending maintaining the current medication regimen. (6) Dysphagia: Code(s): R13.10 - Dysphagia, unspecified Category: Medical Plan: Patient recently had barium swallow completed and evaluation by speech pathologist. Recommending no change in diet however they did recommend maintaining an upright position with p.o. intake, alternating water and food and trialing softer foods. (7) Hearing loss: Code(s): H91.90 - Unspecified hearing loss, unspecified ear Category: Medical Plan: Patient continues to have hearing loss and ringing in bilateral ears advised him at his last visit to undergo hearing test which was not scheduled. I updated the referral today as tinnitus and hearing loss has been worsening and advised patient to reach out to the office if he does not get a phone call the next week to schedule this. (8) Tinnitus: Code(s): H93.19 - Tinnitus, unspecified ear Category: Medical Plan: See above plan for hearing loss (9) Back pain: Code(s): M54.9 - Dorsalgia, unspecified Category: Medical Plan: Patient having back pain in the lumbar spine and paraspinal muscles. Likely muscular recommended use of Tylenol as needed and prescription sent for lidocaine patches well. Plan This note was constructed using voice recognition software. While every effort has been made to ensure accuracy and necktie maker, still areas may have been included sometimes these areas may affect the content or meeting of the given symptoms. Total time spent caring for the patient today was 30 minutes. This includes time spent before the visit reviewing the chart, time spent during the visit, and time spent after the visit and documentation. Orders: Referrals Ear/Nose/Throat Referral H93.19 - Tinnitus, unspecified ear Medications: New lidocaine 5% leave on most painful area for up to 12 hrs 1 patch topical DAILY 15 ea 0RF
[2025-03-25 08:29] VITALS: BP 90/58; PULSE 62; TEMP 36.3; O2SAT 98; BMI 22.7
[2025-03-25 09:02] VITALS: BP 122/58
== END 2025-03-25 09:14 | disposition home or self-care (01) ==
LOC: HO.HMCH 07:56
PROVIDERS: PCP Internal Medicine
DX: I10 Essential (primary) hypertension (principal); I25.10 Atherosclerotic heart disease of native coronary artery without angina pectoris; R73.02 Impaired glucose tolerance (oral); E78.00 Pure hypercholesterolemia, unspecified; J45.20 Mild intermittent asthma, uncomplicated; R13.10 Dysphagia, unspecified; H91.90 Unspecified hearing loss, unspecified ear; H93.19 Tinnitus, unspecified ear; M54.9 Dorsalgia, unspecified

== ENCOUNTER → 2025-03-25 07:56 | Outpatient (BNVA) | payer OTHER, SELFPAY | PROVIDERS: PCP Internal Medicine | DX: I10 Essential (primary) hypertension (principal); I25.10 Atherosclerotic heart disease of native coronary artery without angina pectoris; R73.02 Impaired glucose tolerance (oral); E78.00 Pure hypercholesterolemia, unspecified; J45.20 Mild intermittent asthma, uncomplicated; R13.10 Dysphagia, unspecified; H91.90 Unspecified hearing loss, unspecified ear; H93.19 Tinnitus, unspecified ear; M54.9 Dorsalgia, unspecified; Z79.899 Other long term (current) drug therapy | CPT/HCPCS: 96127; 99212 ==

== ENCOUNTER 2025-07-04 08:35 | Outpatient (AMB) | payer OTHER, SELFPAY ==
[2025-07-04 08:44] VITALS: BP 120/52; PULSE 65; BMI 22.4
--- NOTE | 2025-07-04 08:44 | A.OFFVIS_ITS ---
Vital Signs 07/04/25 08:44 Height 5 ft 5 in Weight 134 lb 7.712 oz BMI 22.4 BP 120/52 L Blood Pressure Location Rt brachial Position Sitting Pulse 65 Pulse Source Pulse Oximeter Intake Visit Reasons: 6m follow up Dock Manager Required: Yes Dock Manager Name: voice bowman [id number] Allergies lisinopril Adverse Reaction (Intermediate, Verified 07/04/25 08:47) Cough Medication List - Last Reconciled 07/04/25 by SYDNI LemusC acetaminophen (Tylenol) 650 mg (2 x 325 mg) PO Q6H PRN albuterol sulfate 2.5 mg (3 mL) inhalation Q4H PRN albuterol sulfate 90 mcg/actuation (Ventolin HFA) 2 puffs inhalation QID PRN qgnhpgvfrwo-qdglfbkjx-hzpzsxua 100-62.5-25 mcg (Trelegy Ellipta) 1 inh inhalation DAILY ipratropium bromide 2 sprays intranasal TID-QID PRN lidocaine 5% 1 patch topical DAILY losartan 25 mg PO DAILY nebulizers (Aeroneb Go Nebulizer) As directed updraft treatment for albuterol Q 4 p.r.n. rosuvastatin (Crestor) 20 mg PO DAILY HPI HPI 6m follow up: Details: Blake is a 80-year-old male with past medical history of hyperlipidemia, impaired fasting glucose, asthma, abnormal EKG, abnormal nuclear stress test, presumed coronary artery disease, dilated ascending aorta who presents for follow-up. Today he reports he continues to feel very well. He denies any concerning symptoms. No chest discomfort, shortness of breath, lightheadedness, palpitations, presyncope, syncope, PND, orthopnea or edema. He tries to remain physically active and has been able to ride his bike. Taking meds as directed. 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 [facility] Medical History Tinnitus, bilateral Plantar nerve lesion Constipated Abnormal EKG Abnormal stress ECG Ascending aortic aneurysm Atherosclerotic cardiovascular disease Impaired glucose tolerance Epididymo-orchitis SNHL (sensory-neural hearing loss), asymmetrical Hemorrhoid Hypercholesterolemia Vitamin D deficiency Asthma BPH (benign prostatic hyperplasia) Surgical History Anal fistula History of cataract surgery Family History Father No problems noted. Mother No problems noted. Social History Housing: Apartment Alcohol intake: never Patient Tobacco Use Status: Former Tobacco user Tobacco use type: Cigarette Years Smoked: 25 +/-, started 15yo, 1.5PPD, e-Cigarette/Vaping Use: Never Used Second Hand Smoke Exposure: Yes service: No Current occupational status: retired Cognitive needs: No Hearing needs: No Vision needs: Yes Review of Systems Const All systems reviewed & are unremarkable except as noted in HPI and below ENT Denies dizziness Card Denies chest pain, Denies chest pain at rest, Denies chest pain with activity, Denies rapid heart rate, Denies pedal edema, Denies edema, Denies leg edema, Denies lightheadedness, Denies palpitations, Denies dyspnea, Denies dyspnea on exertion and Denies orthopnea Resp Denies cough, Denies dyspnea and Denies dyspnea on exertion GI Denies hematochezia and Denies change in stool character Musc Denies abnormal gait, Denies limited range of motion, Denies muscle cramps, Denies muscle weakness, Denies numbness, Denies radiating pain into limb, Denies stiffness and Denies tingling Neuro Denies abnormal gait, Denies dizziness, Denies numbness and Denies tingling Endo Denies palpitations Physical Exam Vital Signs: Last Vital Signs Pulse 65 07/04/25 08:44 BP 120/52 L 07/04/25 08:44 BMI result Body Mass Index 22.4 Const General: cooperative, healthy appearing, comfortable and no acute distress Orientation/consciousness: patient oriented x3 Neck Neck: Yes normal visual inspection Resp Effort & Inspection: normal respiratory effort Auscultation: clear to auscultation bilaterally, no rales, no rhonchi and no w heezes Cardio Jugular venous distension: no JVD Rate: regular rate Rhythm: regular rhythm Heart sounds: S1 normal heart sound present, S2 normal heart sound present, no murmurs and no rubs Neuro General: patient oriented x3 Extrem General: Yes normal to inspection, No no pedal edema and No calf tenderness Psych Appearance: grossly normal Mental Status: mental status grossly normal Speech and movement: Normal speech and movement present Assessment & Plan Assessment & Plan (1) Atherosclerotic cardiovascular disease: Code(s): I25.10 - Atherosclerotic heart disease of [place] coronary artery without angina pectoris Category: Medical Plan: Presumed coronary artery disease, stable condition. Prior EKGs with septal Q- wave. Echocardiogram done 07/25/2024 shows EF 60-65 %, no valve abnormalities, mild dilation of the ascending aorta 4.2 cm. No regional wall motion abnormalities. Notes indicate prior nuclear stress test showing slight decreased uptake in the inferior lateral wall that improved on CT attenuation correction, felt to be normal but with EKG findings could also indicate mild fixed inferior lateral defect from prior nontransmural infarct. A nuclear stress test was done on 01/06/2023 showing likely normal myocardial perfusion imaging. EKG done last visit shows normal sinus rhythm with nonspecific T-wave abnormality, can not exclude prior anterior infarct, rate 78. Currently remains asymptomatic. Continue with risk factor modification. Previously on aspirin but he stopped due to easy bruising. Continue rosuvastatin with ideal LDL goal less than 70 in patient with diabetes. Continue lisinopril 10 mg daily for blood pressure control. Signs and symptoms of angina reviewed. Cardiology follow-up in 6 months, sooner if needed (2) Ascending aortic aneurysm: Comment: December 2022 /June 2024 4.2 cm no growth Code(s): I71.21 - Aneurysm of the ascending aorta, without rupture Category: Medical Qualifiers: Presence of rupture: without rupture Qualified Code(s): I71.21 - Aneurysm of the ascending aorta, without rupture Plan: Mildly dilated ascending aorta 4.2 cm on last echocardiogram. Will update echo prior to next visit. (3) Abnormal EKG: Code(s): R94.31 - Abnormal electrocardiogram [ECG] [EKG] Category: Medical Plan: Can not exclude prior anterior infarct (4) Hypertension: Code(s): I10 - Essential (primary) hypertension Category: Medical Qualifiers: Hypertension type: unspecified Qualified Code(s): I10 - Essential (primary) hypertension Plan: Blood pressure goal less than 130/80. Normal range today. No med changes made. (5) Hypercholesterolemia: Code(s): E78.00 - Pure hypercholesterolemia, unspecified Category: Medical Plan: LDL goal ideally less than 70. Labs done 09/19/2024 shows LDL 73. He has upcoming PCP visit and labs will be ordered at that time. Continue rosuvastatin. Plan Time spent on chart review, documentation, interview and assessment Orders: Orders CA echo transthoracic complete 12/19/25 I71.21 - Aneurysm of the ascending aorta, without rupture Coding Level of Care Code Est Pt Level 3 (86811) Complex EM visit Add On G2211 Diagnoses Atherosclerotic cardiovascular disease I25.10 Aneurysm of ascending aorta without rupture I71.21 Presence of rupture: without rupture Abnormal EKG R94.31 Hypertension, unspecified type I10 Hypertension type: unspecified Hypercholesterolemia E78.00 Time Spent (min) 22
== END 2025-07-04 09:21 | disposition home or self-care (01) ==
LOC: HO.HCS 08:36
PROVIDERS: PCP Internal Medicine; Visit Provider Nurse Practitioner Family
DX: I25.10 Atherosclerotic heart disease of native coronary artery without angina pectoris (principal); I71.21 Aneurysm of the ascending aorta, without rupture; R94.31 Abnormal electrocardiogram [ECG] [EKG]; I10 Essential (primary) hypertension; E78.00 Pure hypercholesterolemia, unspecified
CPT/HCPCS: 99213; G2211

== ENCOUNTER → 2025-07-04 08:35 | Outpatient (BNVA) | payer OTHER, SELFPAY | PROVIDERS: PCP Internal Medicine; Visit Provider Nurse Practitioner Family | DX: I25.10 Atherosclerotic heart disease of native coronary artery without angina pectoris (principal); I72.1 Aneurysm of artery of upper extremity; I71.21 Aneurysm of the ascending aorta, without rupture; R94.31 Abnormal electrocardiogram [ECG] [EKG]; I10 Essential (primary) hypertension; E78.00 Pure hypercholesterolemia, unspecified | CPT/HCPCS: 99212 ==

== ENCOUNTER 2025-07-16 13:17 | Emergency (ER) | payer OTHER, SELFPAY ==
--- NOTE | ~2025-07-16 | CT_ITS ---
CLINICAL HISTORY: pain, diverticultiis colitis CT abdomen and pelvis with contrast Comparison: None provided Findings: No consolidation or effusion. The gallbladder and solid organs are within normal limits. No renal stones. Mild circumferential wall thickening of the ascending colon with mild surrounding fat stranding may represent focal colitis. Moderate prostatomegaly with the prostate measuring 5.7 x 4.7 x 4.3 cm. The bones are intact. IMPRESSION: Mild circumferential wall thickening of the ascending colon with mild surrounding fat stranding may represent focal colitis. Moderate prostatomegaly. This document has been electronically signed by: Norberto Jensen MD on 07/16/2025 22:13:20
[2025-07-16 13:27] VITALS: BP 101/58; PULSE 82; RESP 16; TEMP 37.1; O2SAT 95; BMI 23.4
--- NOTE | 2025-07-16 13:31 | ED_ITS ---
HPI - General Adult General Chief complaint: General Medical Stated complaint: dizziness, diarrhea, chills Time Seen by Provider: 07/16/25 20:01 Source: patient Limitations: language barrier History of Present Illness ED Provider: Berenice Kothari PA-C HPI narrative: 80-year-old male with a history of hypertension, hyperlipidemia, asthma who presents with diarrhea x1 day. Associated generalized myalgias, chills and nausea. Denies bloody stool, melena, fever. Denies recent travel, use of antibiotics or hospitalization. No known sick contacts with similar symptoms. Denies abdominal pain. Related Data Previous Rx's ?Medication ?Instructions ?Recorded acetaminophen 325 mg capsule 650 mg (2 x 325 mg) PO Q6 H PRN 05/13/23 (Tylenol) pain #30 caps albuterol sulfate 2.5 mg/3 mL 2.5 mg (3 mL) inhalation Q4H PRN 05/15/24 (0.083 %) solution for nebulization shortness of breat h or wheezing #180 mL nebulizers (Aeroneb Go Nebulizer) #1 ea 05/15/24 albuterol sulfate 90 mcg/actuation 2 puff inhalation Q ID PRN 11/09/24 aerosol inhaler (Ventolin HFA) shortness of breath or wheezing #8.5 grams fluticasone fur. 100 mcg-umeclid 1 inh inhalation SAMUEL Y #60 ea 11/09/24 62.5 mcg-vilant 25 mcg inhalat.powder (Trelegy Ellipta) rosuvastatin 20 mg tablet (Crestor) 20 mg PO DAILY #90 tabs 12/25/24 ipratropium bromide 42 mcg (0.06 2 spray intranasal TI D-QID PRN 01/29/25 %) nasal spray allergy symptoms #15 mL lidocaine 5 % topical patch 1 patch topical DAILY #15 ea 03/25/25 losartan 25 mg tablet 25 mg PO DAILY #30 tabs 04/29 06/21 amoxicillin 875 mg-potassium 1 tab PO Q12H #19 tabs clavulanate 125 mg tablet Allergies Allergy/AdvReac Type Severity Reaction Status Date / Time lisinopril AdvReac Intermediate Cough Verified 07/16/25 13:28 Review of Systems 2 Review of Systems: Yes all other systems are reviewed and are negative Constitutional: Constitutional: Reports chills, Denies fever(s) and Denies malaise Cardiovascular: Cardiovascular: Denies chest pain and Denies dyspnea Respiratory: Respiratory: Denies cough and Denies dyspnea Gastrointestinal: Gastrointestinal: Denies abdominal pain, Denies melena, Denies hematochezia, Reports diarrhea, Reports nausea and Denies vomiting Musculoskeletal: Musculoskeletal: Reports myalgias [facility] Past Medical History Attestation statement: The following information was validated with the patient. Medical History Tinnitus, bilateral Plantar nerve lesion Constipated Abnormal EKG Abnormal stress ECG Ascending aortic aneurysm Atherosclerotic cardiovascular disease Impaired glucose tolerance Epididymo-orchitis SNHL (sensory-neural hearing loss), asymmetrical Hemorrhoid Hypercholesterolemia Vitamin D deficiency Asthma BPH (benign prostatic hyperplasia) Surgical History Anal fistula History of cataract surgery Family History Family History Father No problems noted. Mother No problems noted. Social History Social History Housing: Apartment Alcohol intake: never Patient Tobacco Use Status: Former Tobacco user Tobacco use type: Cigarette Years Smoked: 25 +/-, started 15yo, 1.5PPD, e-Cigarette/Vaping Use: Never Used Second Hand Smoke Exposure: Yes service: No Current occupational status: retired Cognitive needs: No Hearing needs: No Vision needs: Yes Physical Exam ED Vital Signs: Vital Signs - 24 hr 07/16/25 13:27 07/16/25 19:39 07/16/25 22:25 Temperature 98.7 F 97.6 F 98.1 F Pulse Rate 82 60 53 Respiratory Rate 16 16 16 Blood Pressure 101/58 L 137/60 139/64 Pulse Oximetry 95 97 98 Oxygen Delivery Method Room Air Room Air Room Air BMI result Body Mass Index 23.4 Const Other: Alert, well-appearing Orientation/consciousness: patient oriented x3 Resp Effort & Inspection: normal respiratory effort Cardio Other: Normal peripheral perfusion GI Other: Abdomen is soft, nondistended nontender no guarding Skin Other: Warm dry no rash Neuro General: patient oriented x3, gait normal, no focal motor deficits and CN's II- XI intact bilaterally Psych Other: Cooperative Course Course Course Narrative: This is a Rapid Medical Examination (RME) performed by Pricila Camacho PA-C in triage. Full HPI, ROS, assessment and treatment plan per primary provider in the Main ED. Hx: 80 yo M hx asthma, BPH, prostate CA, AAA, HTN, anemia here for eval of generalized weakness, body aches, dizziness, sore throat, 1 episode of urinary incontinence last night, diarrhea, abd pain described as acid in my stomach . no known sick contacts. Plan: labs, ekg, viral/strep swabs Medications Administered Discontinued Medications Generic Name Dose Route Start Last Admin Trade Name Freq PRN Reason Stop Dose Admin Amoxicillin/Clavulanate Potassium 875 mg 07/16/25 23:04 07/16/25 23:21 Amoxicillin/Potassium Clav 875 Mg Tablet PO 07/16/25 23:05 875 mg ONCE ONE Administration Famotidine 20 mg 07/16/25 20:19 07/16/25 20:30 Famotidine/Pf 20 Mg/2 Ml Vial IVPUSH 07/16/25 20:20 20 mg ONCE ONE Administration Sodium Chloride 500 mls @ 500 mls/hr 07/16/25 20:18 07/16/25 21:59 Ns IV 07/16/25 21:17 Infused .Q1H ONE Infusion Iohexol 85 ml 07/16/25 21:16 07/16/25 21:16 Iohexol 350 Mg/Ml 100 Ml Infus..Btl IV 07/16/25 21:17 85 ml ONCE ONE Administration Medical Decision Making Medical Decision Making [facility] Narrative: 80-year-old male with a history of hypertension, hyperlipidemia, asthma who presents with diarrhea x1 day. Associated generalized myalgias, chills and nausea. Denies bloody stool, melena, fever. Denies recent travel, use of antibiotics or hospitalization. No known sick contacts with similar symptoms. Denies abdominal pain. Problem: Age, hypertension History: Per patient I have considered the following differential diagnoses: Diverticulitis/colitis, traveler's diarrhea, C diff, viral gastroenteritis Plan: Given the patient's report of associated chills and myalgias, it is concerned he may have a low-grade fever. He is not febrile here in the emergency room. He does have a benign abdominal exam, however given his age, I am airing on the side of caution obtaining a CT scan of the abdomen. We will give gentle IV fluid hydration. The patient has no sick contacts to suggest viral gastroenteritis. He also has no known risk factors for C diff or traveler's diarrhea. Screening labs were ordered from triage. I have independently reviewed the following tests: Labs: Leukocytosis of 14.8 with left shift, not anemic, no electrolyte abnormality noted, urine not in fact CT abdomen and pelvis:MPRESSION: Mild circumferential wall thickening of the ascending colon with mild surrounding fat stranding may represent focal colitis. Moderate prostatomegaly. Lab Data 07/16/25 13:54 07/16/25 13:54 Labs: Lab Results 07/16/25 07/16/25 07/16/25 Range/Units 13:54 19:37 20:17 WBC 14.8 H (4.8-10.8) X10*3/uL RBC 3.95 L (4.60-5.80) X10*6/uL Hgb 11.6 L (14.0-18.0) g/dl Hct 35.0 L (42.0-52.0) % MCV 88.6 (80.0-98.0) fL MCH 29.4 (27.0-33.0) pg MCHC 33.1 (31.0-36.0) g/dl RDW 12.9 (11.0-16.0) % Plt Count 154 L (160-400) X10*3/uL MPV 10.1 (9.4-12.4) fL Immature Gran % (Auto) 0.6 H (0.0-0.4) % Neut % (Auto) 86.0 H (45-73) % Lymph % (Auto) 5.6 L (20-40) % [place] % (Auto) 7.7 (2-11) % Eos % (Auto) 0.0 (0-4) % Baso % (Auto) 0.1 (0-2) % Lymph # (Auto) 0.8 L (1.2-4.9) X10*3/uL [place] # (Auto) 1.1 (0.1-1.2) X10*3/uL Eos # (Auto) 0.0 (0.0-0.4) X10*3/uL Baso # (Auto) 0.0 (0.0-0.2) X10*3/uL Abs Immat Gran (auto) 0.09 H (0.00-0.03) X10*3/uL Absolute Neuts (auto) 12.7 H (2.0-8.3) x10*3/uL Absolute Nucleated RBC 0.000 (0.0-0.012) X10*3/uL Nucleated RBC % (auto) 0.0 (0.0-0.2) /100WBC Sodium 133 L (135-145) mmol/L Potassium 3.6 (3.3-5.1) mmol/L Chloride 101 (96-108) mmol/L Carbon Dioxide 23 (22-29) mmol/L Anion Gap 13 (12-20) BUN 23 H (9-16) mg/dL Creatinine 0.87 (0.5-1.4) mg/dL Estim Creat Clear Calc 53.5 Estimated GFR > 60 Random Glucose 106 (60-115) mg/dL Calcium 8.7 D (8.4-10.2) mg/dL Magnesium 1.7 (1.6-2.6) mg/dL Total Bilirubin 0.8 (0.0-1.0) mg/dL AST 29 (5-37) U/L ALT 16 (0-40) U/L Alkaline Phosphatase 54 (39-117) U/L Troponin I High Sens 14.6 10.7 (<3.5-35.0) ng/L Total Protein 6.6 (6.5-8.0) g/dL Albumin 3.7 (3.5-5.0) g/dL Lipase 7 L (8-78) U/L Urine Color Dark Yellow Urine Appearance Clear Urine pH 5.5 (5.0-9.0) Ur Specific [place] 1.020 (1.005-1.025) Urine Protein Trace (Neg-Trace) mg/dL Urine Glucose (UA) Negative (Negative) mg/dL Urine Ketones 15 (Negative) mg/dL Urine Blood Small (1+) H (Negative) Urine Nitrite Negative (Negative) Ur Leukocyte Esterase Trace H (Negative) Urine RBC 3-5 H (0-2) /HPF Urine WBC 0-5 (0-5) /HPF Ur Squamous Epith Cells 0-2 (0-2) /HPF Urine Bacteria None Seen (None Seen) Hyaline Casts 6-10 (0-2) /LPF Influenza Type A (PCR) NEGATIVE (Negative) Influenza Type B (PCR) NEGATIVE (Negative) RSV RNA Qual (PCR) NEGATIVE (Negative) SARS-CoV-2 RNA (RT-PCR) NEGATIVE (Negative) S. pyogenes GrpA ROMAIN Negative (Negative) Discharge Plan Discharge Clinical Impression: Colitis Patient Disposition: Home, Self-Care Instructions: Colitis (ED) Additional Instructions: The CT scan revealed that you have colitis. See home care instructions. Take the Augmentin as directed. You should also purchase an [id number] probiotic, this will help to restore your healthy/natural gut miracle. Follow up with your primary care provider as needed. Prescriptions: New amoxicillin-pot clavulanate 875-125 mg tablet 1 tab PO Q12H Qty: 19 0RF No Action (DME) nebulizers [Aeroneb Go Nebulizer] Misc See Rx Instructions .Route Qty: 1 0RF Rx Instructions: As directed updraft treatment for albuterol Q 4 p.r.n. albuterol sulfate 2.5 mg /3 mL (0.083 %) solution for nebulization 2.5 mg inhalation Q4H PRN (Reason: shortness of breath or wheezing) Qty: 180 0RF losartan 25 mg tablet 25 mg PO DAILY Qty: 30 3RF acetaminophen [Tylenol] 325 mg capsule 650 mg PO Q6H PRN (Reason: pain) Qty: 30 0RF albuterol sulfate [Ventolin HFA] 90 mcg/actuation HFA aerosol inhaler 2 puff inhalation QID PRN (Reason: shortness of breath or wheezing) Qty: 8.5 6RF Trelegy Ellipta 100-62.5-25 mcg blister with device 1 inh inhalation DAILY Qty: 60 6RF ipratropium bromide 42 mcg (0.06 %) spray,non-aerosol 2 spray intranasal TID-QID PRN (Reason: allergy symptoms) Qty: 15 3RF Rx Instructions: administer into each nostril rosuvastatin [Crestor] 20 mg tablet 20 mg PO DAILY Qty: 90 3RF lidocaine 5 % adhesive patch,medicated 1 patch topical DAILY Qty: 15 0RF Rx Instructions: leave on most painful area for up to 12 hrs Interventions: ED Discharge Assessment Last Done: 07/16/25 23:24 Discharge Date/Time: 07/16/25 23:24 Print Language: Slovenian
--- NOTE | 2025-07-16 13:31 | ECG_ITS ---
Test Reason : dizziness Blood Pressure : */* mmHG Vent. Rate : 70 BPM Atrial Rate : 70 BPM P-R Int : 150 ms QRS Dur : 76 ms QT Int : 392 ms P-R-T Axes : 14 -15 39 degrees QTcB Int : 423 ms Normal sinus rhythm Nonspecific T wave abnormality Abnormal ECG When compared with ECG of 27-Oct-2022 10:19, Nonspecific T wave abnormality has replaced inverted T waves in Inferior leads Nonspecific T wave abnormality now evident in Anterior leads Referred By: Sofia Camacho Electronically Signed By: TASNEEM JARQUIN MD
[2025-07-16 14:00] LABS: MANUAL DIFF FLAG NO
[2025-07-16 14:06] LABS: Hematocrit 35.0 % (42.0-52.0); Hemoglobin 11.6 g/dl (14.0-18.0); Imm Gran Abs Auto 0.09 X10*3/uL (0.00-0.03); Imm Gran Pct Auto 0.6 % (0.0-0.4); Lymphocytes Absolute Auto 0.8 X10*3/uL (1.2-4.9); Mean Corpuscular HGB Conc 33.1 g/dl (31.0-36.0); Mean Corpuscular Hemoglobin 29.4 pg (27.0-33.0); Mean Corpuscular Volume 88.6 fL (80.0-98.0); NRBC Abs Auto 0.000 X10*3/uL (0.0-0.012); NRBC Pct Auto 0.0 /100WBC (0.0-0.2); Platelet Count 154 X10*3/uL (160-400); Red Blood Count 3.95 X10*6/uL (4.60-5.80); White Blood Count 14.8 X10*3/uL (4.8-10.8)
[2025-07-16 14:10] LABS: IDNOW Serial# 55D5AD1C; Strep A Nucleic Acid Negative (Negative)
[2025-07-16 14:21] LABS: Alanine Aminotransferase 16 U/L (0-40); Albumin Level 3.7 g/dL (3.5-5.0); Alkaline Phosphatase 54 U/L (39-117); Anion Gap 13 (12-20); Aspartate Amino Transferase 29 U/L (5-37); Blood Urea Nitrogen 23 mg/dL (9-16); Calcium 8.7 mg/dL (8.4-10.2); Carbon Dioxide 23 mmol/L (22-29); Chloride 101 mmol/L (96-108); Creatinine Clr Calc Pharmacy 53.5; Estimated Glomerular Filt Rate > 60; Lipase 7 U/L (8-78); Magnesium 1.7 mg/dL (1.6-2.6); Potassium 3.6 mmol/L (3.3-5.1); Sodium 133 mmol/L (135-145); Total Protein 6.6 g/dL (6.5-8.0)
[2025-07-16 14:25] LABS: Troponin-I High Sensitivity 14.6 ng/L (<3.5-35.0)
[2025-07-16 14:38] LABS: Resp Syncy Virus RNA Qual PCR NEGATIVE (Negative); SARS COV2 PCR INHOUSE NEGATIVE (Negative)
[2025-07-16 19:39] VITALS: BP 137/60; PULSE 60; RESP 16; TEMP 36.4; O2SAT 97
[2025-07-16 19:52] LABS: Appearance Urine Clear; Glucose Urine UA Negative (Negative); PH 5.5 (5.0-9.0); Specific Gravity - Urine 1.020 (1.005-1.025); UMIC TRIGGER UACC YES
[2025-07-16 20:41] LABS: Troponin-I High Sensitivity 10.7 ng/L (<3.5-35.0)
[2025-07-16] MEDS: iohexoL 350 MG/ML 100 ML INFUS..BTL 85 ML IV (21:16)
[2025-07-16 22:25] VITALS: BP 139/64; PULSE 53; RESP 16; TEMP 36.7; O2SAT 98
[2025-07-16 23:24] VITALS: BP 139/64; PULSE 53; RESP 16; TEMP 36.7; O2SAT 98
== END 2025-07-16 23:24 | disposition home or self-care (01) ==
PROVIDERS: Physician Assistant Medical; Emergency Provider Emergency Medicine
DX: K52.9 Noninfective gastroenteritis and colitis, unspecified (principal); R42 Dizziness and giddiness; R10.9 Unspecified abdominal pain; Z03.818 Encounter for observation for suspected exposure to other biological agents ruled out
CPT/HCPCS: 36415; 74177; 80053; 81001; 81003; 83690; 83735; 84484; 85025; 87637; 87651; 93005; 96361; 96374; 99284; J1308; Q9967

== ENCOUNTER → 2025-07-16 13:31 | Outpatient (BNV) | payer OTHER, SELFPAY | PROVIDERS: Emergency Provider Emergency Medicine; Visit Provider Internal Medicine Cardiovascular Disease | DX: R94.31 Abnormal electrocardiogram [ECG] [EKG] (principal); R42 Dizziness and giddiness | CPT/HCPCS: 93010 ==

== ENCOUNTER → 2025-07-16 20:18 | Outpatient (BNV) | payer OTHER, SELFPAY | PROVIDERS: Emergency Provider Emergency Medicine; Visit Provider Student in an Organized Health Care Education/Training Program | DX: K52.3 Indeterminate colitis (principal) | CPT/HCPCS: 74177 ==

== ENCOUNTER 2025-09-12 10:00 | Outpatient (AMB) | payer OTHER, SELFPAY ==
[2025-09-12 10:11] VITALS: BP 122/58; PULSE 65; O2SAT 98; BMI 23.2
--- NOTE | 2025-09-12 10:11 | A.OFFVIS_ITS ---
Vital Signs 09/12/25 10:11 Height 5 ft 3 in Weight 131 lb BMI 23.2 BP 122/58 L Blood Pressure Location Lt brachial Position Sitting Pulse 65 Pulse Source Pulse Oximeter Pulse Oximetry (%) 98 Oxygen Delivery Method Room Air Intake Visit Reasons: asthma Director Field Services Required: Yes Director Field Services Name: Nanci Silva Mirna Allergies lisinopril Adverse Reaction (Intermediate, Verified 09/12/25 10:23) Cough HPI HPI asthma: Details: 80-year-old gentleman, former 30 pack-year smoker, quit 40 years prior now followed for moderate persistent asthma, environmental allergies, and pulmonary aspiration. Patient has been using Trelegy and albuterol MDI/nebs with good control of his asthma symptoms. He continues to complain of cough that worsens with food intake. Though, his modified barium swallow was essentially normal. His allergic rhinitis symptoms are controlled on nasal ipratropium. [facility] Medical History Tinnitus, bilateral Plantar nerve lesion Constipated Abnormal EKG Abnormal stress ECG Ascending aortic aneurysm Atherosclerotic cardiovascular disease Impaired glucose tolerance Epididymo-orchitis SNHL (sensory-neural hearing loss), asymmetrical Hemorrhoid Hypercholesterolemia Vitamin D deficiency Asthma BPH (benign prostatic hyperplasia) Surgical History Anal fistula History of cataract surgery Family History Father No problems noted. Mother No problems noted. Social History Housing: Apartment Alcohol intake: never Patient Tobacco Use Status: Former Tobacco user Tobacco use type: Cigarette Years Smoked: 25 +/-, started 15yo, 1.5PPD, e-Cigarette/Vaping Use: Never Used Second Hand Smoke Exposure: Yes service: No Current occupational status: retired Cognitive needs: No Hearing needs: No Vision needs: Yes Review of Systems Const Denies daytime sleepiness, Denies excessive sweating, Denies fatigue, Denies fever(s), Denies lethargy, Denies malaise, Denies night sweats, Denies snoring and Denies weight loss Eyes Denies blurry vision and Denies itchy eyes ENT Denies nasal congestion, Denies post nasal drip, Denies sinus pain, Denies sinus pressure and Denies other ( Thrush) Card Denies chest pain, Denies pedal edema, Denies dyspnea, Denies orthopnea and Denies paroxysmal nocturnal dyspnea Resp Denies cough, Denies hemoptysis, Denies excessive phlegm production, Denies dyspnea, Denies snoring and Denies wheezing GI Denies abdominal pain and Denies heartburn Musc Denies myalgias, Denies arthralgias and Denies joint swelling Skin/Breast Denies rash Neuro Denies memory loss and Denies seizure-like activity Psych Denies abnormal sleep pattern, Denies anxiety and Denies memory loss Endo Denies excessive sweating, Denies fatigue and Denies heat intolerance Leonel/Lymph Denies easy bruising Aller/Immun Denies itchy eyes, Denies seasonal rhinorrhea and Denies wheezing Physical Exam Vital Signs: Last Vital Signs Pulse 65 09/12/25 10:11 BP 122/58 L 09/12/25 10:11 Pulse Ox 98 09/12/25 10:11 Oxygen Delivery Method Room Air 09/12/25 10:11 BMI result Body Mass Index 23.2 Const General: no acute distress and alert Nutritional Appearance: not obese Orientation/consciousness: Other orientation findings ( oriented) HEENT Head: Yes atraumatic Eyes General: appearance normal, both eyes and all related structures Sclerae: sclerae normal EOM: EOMs intact bilaterally Neck Neck: Yes supple Lymphatic: no lymphadenopathy noted Resp Effort & Inspection: normal respiratory effort and no use of accessory muscles Auscultation: clear to auscultation bilaterally Cardio Rate: regular rate Rhythm: regular rhythm Heart sounds: no gallops, no murmurs and no rubs Skin General skin exam: other ( warm) Extrem General: No clubbing, No cyanosis and No edema Assessment & Plan Assessment & Plan (1) Asthma: Code(s): J45.909 - Unspecified asthma, uncomplicated Category: Medical Qualifiers: Asthma severity: mild Asthma persistence: intermittent Asthma complication type: uncomplicated Qualified Code(s): J45.20 - Mild intermittent asthma, uncomplicated Plan: Well controlled on Trelegy and albuterol MDI. Continue current regimen. (2) Allergic rhinitis: Code(s): J30.9 - Allergic rhinitis, unspecified Category: Medical Plan: Well controlled on nasal ipratropium. Continue current regimen. Coding Level of Care Code Est Pt Level 4 (97350) Diagnoses Mild intermittent asthma without complication J45.20 Asthma severity: mild Asthma persistence: intermittent Asthma complication type: uncomplicated Allergic rhinitis J30.9
== END 2025-09-12 10:39 | disposition home or self-care (01) ==
LOC: HO.HPS 10:00
PROVIDERS: PCP Internal Medicine; Visit Provider Internal Medicine Pulmonary Disease
DX: J45.20 Mild intermittent asthma, uncomplicated (principal); J30.9 Allergic rhinitis, unspecified
CPT/HCPCS: 99214

== ENCOUNTER → 2025-09-12 10:00 | Outpatient (BNVA) | payer OTHER, SELFPAY | PROVIDERS: PCP Internal Medicine; Visit Provider Internal Medicine Pulmonary Disease | DX: J45.40 Moderate persistent asthma, uncomplicated (principal); J30.9 Allergic rhinitis, unspecified; Z91.09 Other allergy status, other than to drugs and biological substances | CPT/HCPCS: 99212 ==

== ENCOUNTER 2025-10-03 08:34 | Outpatient (AMB) | payer OTHER, SELFPAY ==
[2025-10-03 08:43] VITALS: BP 120/60; PULSE 70; TEMP 36.3; O2SAT 98; BMI 23.4
--- NOTE | 2025-10-03 08:43 | MHC.PC.OV ---
Vital Signs 10/03/25 08:43 Height 5 ft 3 in Weight 132 lb 4 oz BMI 23.4 BP 120/60 Blood Pressure Location Lt brachial Position Sitting Pulse 70 Pulse Source Pulse Oximeter Temp 97.3 F Temp Source Temporal Artery Scan Pulse Oximetry (%) 98 Oxygen Delivery Method Room Air Intake Visit Reasons: Annual Physical Intake Note: Patient is here to follow up on Dysphagia. 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: Not Required per policy Accompanied by: Self / Same As Patient Allergies lisinopril Adverse Reaction (Intermediate, Verified 10/03/25 08:48) Cough Medication List - Last Reconciled 10/03/25 by Yuli Cunningham PA-C acetaminophen (Tylenol) 650 mg (2 x 325 mg) PO Q6H PRN albuterol sulfate 2.5 mg (3 mL) inhalation Q4H PRN albuterol sulfate 90 mcg/actuation (Ventolin HFA) 2 puffs inhalation QID PRN nsviwpkoyby-stscyjvsu-flsgkang 100-62.5-25 mcg (Trelegy Ellipta) 1 inh inhalation DAILY ipratropium bromide 2 sprays intranasal TID-QID PRN lidocaine 5% 1 patch topical DAILY losartan 25 mg PO DAILY nebulizers (Aeroneb Go Nebulizer) As directed updraft treatment for albuterol Q 4 p.r.n. rosuvastatin (Crestor) 20 mg PO DAILY Tobacco use date assessed: 03/25/25 Fall risk assessment: No Falls in past year Last assessed Fall Risk: 03/25/25 Dental Screening Dental Screen Date: 10/03/25 Did you have a dental visit in the last 12 months?: Yes Did you have a dental problem in the last 6 months where you did not have access to dental care?: No Was dental information given to patient?: Patient has dentist HPI Annual Physical HPI Details 80-year-old male with past medical history of hypertension, ascending aortic aneurysm, atherosclerotic cardiovascular disease, impaired glucose tolerance, hypercholesterolemia, asthma, history of prostate cancer last seen 02/2025 coming in for annual exam. In review of the notes, patient was seen by pulmonology 08/2025 for asthma which is well controlled with Trelegy at this time no changes were made. Seen by [facility] 04/2025 plan to follow up in 6 months with PSA and testosterone and continue with injections. 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 Presenting for an annual physical. His history is notable for dysphagia, which he states is currently bad. He was previously evaluated by speech pathology, which recommended he eat in an upright position but made no other dietary modifications. He is requesting GI referral. The patient has a several-year history of hearing problems. A referral was previously made to an ENT specialist, but an appointment was never scheduled. PSA: Monitored by his urologist Vaccinations: TD, flu, PCV and shingles UTD [facility] Medical History Tinnitus, bilateral Plantar nerve lesion Constipated Abnormal EKG Abnormal stress ECG Ascending aortic aneurysm Atherosclerotic cardiovascular disease Impaired glucose tolerance Epididymo-orchitis SNHL (sensory-neural hearing loss), asymmetrical Hemorrhoid Hypercholesterolemia Vitamin D deficiency Asthma BPH (benign prostatic hyperplasia) Surgical History Anal fistula History of cataract surgery Family History Father No problems noted. Mother No problems noted. Social History Housing: Apartment Alcohol intake: never Patient Tobacco Use Status: Former Tobacco user Tobacco use type: Cigarette Years Smoked: 25 +/-, started 15yo, 1.5PPD, e-Cigarette/Vaping Use: Never Used Second Hand Smoke Exposure: No service: No Current occupational status: retired Cognitive needs: No Hearing needs: No Vision needs: Yes Questionnaire PHQ-9 Over the last 2 weeks, how often have you been bothered by any of the following problems? 1. Little interest or pleasure in doing things: not at all 2. Feeling down, depressed, or hopeless: several days 3. Trouble falling or staying asleep, or sleeping too much: not at all 4. Feeling tired or having little energy: not at all 5. Poor appetite or overeating: not at all 6. Feeling bad about yourself - or that you are a failure or have let yourself or your family down: not at all 7. Trouble concentrating on things, such as reading the newspaper or watching television: several days 8. Moving or speaking so slowly that other people could have noticed. Or the opposite - being so fidgety or restless that you have been moving around a lot more than usual: not at all 9. Thoughts that you would be better off or of hurting yourself in some way: not at all Total score: 2 Depression Screening Interpretation: Negative Depression Screening Done: Yes Source: Developed by Drs. Carmine Griffin, Urszula Hidalgo, Cash Shepherd and colleagues, with an educational erin from [employer] Thrive Questionnaire Date Thrive assessed: 03/25/25 I am a: Patient What is your living situation today?: I have a steady place to live Within the past 12 months, did the food you bought not last and you didn't have the money to get more?: Never true Within the past 12 months, did you worry whether your food would run out before you got money to buy more?: Never true Do you have trouble paying for medicines?: No Do you have trouble getting transportation to medical appointments?: No Do you have trouble paying your heating and electricity bill?: No Do you have trouble taking care of your child, family member or friend?: No Do you have trouble with day-to-day activities such as bathing, preparing meals, shopping, managing finances, etc.?: No Are you currently unemployed and looking for a job?: Yes Are you interested in more education?: No Please select the resources that you would like help with: None Currently or been in a relationship where the following occur: No concerns reported THRIVE Score: 0 AUDIT C Alcohol Use Questionnaire (AUDIT-C) 1. How often do you have a drink containing alcohol?: Never Total Score: 0 PELON-7 AMB Questionnaire PELON-7 Date PELON - 7 assessed: 12/25/24 Feeling nervous, anxious, or on edge: 0 = Not at all Not being able to stop or control worryin = Not at all Worrying too much about different things: 0 = Not at all Trouble relaxin = Not at all Being so restless that it is hard to sit still: 0 = Not at all Becoming easily annoyed or irritable: 0 = Not at all Feeling afraid as if something awful might happen: 0 = Not at all Total PELON-7 score (0-4 normal; 5-9 mild; 10-14 moderate; 15-21 severe): 0 Source: Developed by Drs. Carmine Griffin, Urszula Hidalgo, Cash Shepherd and colleagues, with an educational erin from [employer] Review of Systems Const Denies body aches, Denies chills, Denies fever(s), Denies headache(s) and Denies poor appetite Eyes Reports no additional complaints ENT Reports dysphagia, Denies dizziness, Denies headache(s) and Denies odynophagia Card Denies chest pain, Denies syncope, Denies edema, Denies irregular heart rhythm, Denies lightheadedness and Denies dyspnea Resp Denies cough and Denies dyspnea GI Denies abdominal pain, Reports dysphagia, Denies nausea, Denies odynophagia and Denies vomiting Reports no additional complaints Musc Reports no additional complaints and Denies abnormal gait Skin/Breast Reports system reviewed and no additional complaints, except as documented Neuro Denies abnormal gait, Denies dizziness, Denies syncope and Denies headache(s) Psych Reports no additional complaints Physical exam (Primary Care) Vital Signs: Last Vital Signs Temp 97.3 F 10/03/25 08:43 Pulse 70 10/03/25 08:43 BP 120/60 10/03/25 08:43 Pulse Ox 98 10/03/25 08:43 Oxygen Delivery Method Room Air 10/03/25 08:43 BMI result Body Mass Index 23.4 Tobacco/Smoking Status: Tobacco use Status Tobacco use date assessed 03/25/25 10/03/25 08:45 Patient Tobacco Use Status Former Tobacco user 10/03/25 08:45 Tobacco use type Cigarette 10/03/25 08:45 e-Cigarette/Vaping Use Never Used 10/03/25 08:45 PHQ-9: PHQ-9 Score PHQ-9: Total score 2 10/03/25 08:57 Depression Screening Interpretation: Negative Thrive Assessment: Date of Thrive Assessment Date Thrive assessed 03/25/25 10/03/25 08:45 Currently or been in a relationship where the following occur: No concerns reported Const General: cooperative, healthy appearing, comfortable and no acute distress Orientation/consciousness: patient oriented x3 HENMT Head: Yes normocephalic Ears: hearing grossly normal bilaterally General nose exam: Normal external nose present Face and sinus: Yes normal facial exam and Yes sinuses nontender Mouth: Normal oral and palatal mucosa present and tongue normal Throat: Yes posterior oropharynx normal Eyes General: appearance normal, both eyes and all related structures Conjunctivae: conjunctivae normal Pupils: Equal, round and reactive pupils present EOM: EOMs intact bilaterally and No Nystagmus present Neck Neck: Yes full ROM and Yes no lymphadenopathy Chest Chest palpation & inspection: normal inspection of the chest Resp Effort & Inspection: normal respiratory effort Auscultation: clear to auscultation bilaterally, no crackles, no rales, no rhonchi and no wheezes Cardio Rate: regular rate Rhythm: regular rhythm Peripheral pulses: radial pulses present and dorsalis pedis present GI Inspection: Yes normal to inspection and No Abdominal wall edema Palpation (GI): Soft to palpation, not firm and nontender Auscultation: normal bowel sounds Rectal Exam - Male: Yes deferred General: Yes no CVA tenderness Back/Spine/Pelvis Back: no CVA tenderness Skin General skin exam: no rashes or lesions noted Neuro General: patient oriented x3 Cranial nerves: Yes Equal, round and reactive pupils present, Yes Midline tongue present, Yes Ability to bilaterally elevate shoulders present and No Nystagmus present Gait exam (Neuro): Normal gait present Extrem General: Yes normal to inspection, Yes full ROM and No edema Psych Speech and movement: Normal speech and movement present Affect: normal affect Attitude: cooperative Insight: Good insight present (Psych) Judgement: Good judgement present (Psych) Coding Level of Care Code Est Pt Prev Care >65y(08017) Diagnoses Annual physical exam Z00.00 Hypertension, unspecified type I10 Hypertension type: unspecified Atherosclerotic cardiovascular disease I25.10 Aneurysm of ascending aorta without rupture I71.21 Presence of rupture: without rupture Hypercholesterolemia E78.00 Impaired glucose tolerance R73.02 Benign prostatic hyperplasia with urinary frequency N40.1; R35.0 Lower urinary tract symptom detail: urinary frequency Lower urinary tract symptom presence: symptoms present Prostate cancer C61 Mild intermittent asthma without complication J45.20 Asthma complication type: uncomplicated Asthma persistence: intermittent Asthma severity: mild Dysphagia R13.10 Hearing loss H91.90 Assessment & Plan Assessment & Plan (1) Annual physical exam: Code(s): Z00.00 - Encounter for general adult medical examination without abnormal findings Category: Medical Plan: Patient is up-to-date on all recommended routine screenings and vaccinations for his age. Healthy diet and regular exercise is encouraged. Blood work is up-to-date and has been reviewed with the patient and ordered for additional blood work. (2) Hypertension: Code(s): I10 - Essential (primary) hypertension Category: Medical Qualifiers: Hypertension type: unspecified Qualified Code(s): I10 - Essential (primary) hypertension Plan: Continue on current blood pressure medication. Avoid salt intake and encourage healthy diet and regular exercise. (3) Atherosclerotic cardiovascular disease: Code(s): I25.10 - Atherosclerotic heart disease of deering coronary artery without angina pectoris Category: Medical Plan: Work on blood pressure, cholesterol, diabetes control. LDL goal less than 70, Blood pressure goal less than 130/80 (4) Ascending aortic aneurysm: Comment: December 2022 /June 2024 4.2 cm no growth Code(s): I71.21 - Aneurysm of the ascending aorta, without rupture Category: Medical Qualifiers: Presence of rupture: without rupture Qualified Code(s): I71.21 - Aneurysm of the ascending aorta, without rupture Plan: Cardiology planning for repeat echocardiogram prior to next visit. (5) Hypercholesterolemia: Code(s): E78.00 - Pure hypercholesterolemia, unspecified Category: Medical Plan: Avoid foods that are high in cholesterol such as red meat, fried foods, eggs and baked goods. Triglyceride goal of less than 150 and LDL goal of less than 70. Cholesterol at goal on last labs currently on rosuvastatin 20 mg . Ordered for updated blood work (6) Impaired glucose tolerance: Code(s): R73.02 - Impaired glucose tolerance (oral) Category: Medical Plan: Decrease the amount of carbohydrates such as pasta, bread, rice, and potatoes and limit the amount of sweets. Although fruits are generally healthy they should be eaten in moderation as they are still high in sugar. Hemoglobin A1c goal of less than 7%. Ordered for updated blood work (7) BPH (benign prostatic hyperplasia): Comment: Dr. Butler Code(s): N40.0 - Benign prostatic hyperplasia without lower urinary tract symptoms Category: Medical Qualifiers: Lower urinary tract symptom detail: urinary frequency Lower urinary tract symptom presence: symptoms present Qualified Code(s): N40.1 - Benign prostatic hyperplasia with lower urinary tract symptoms; R35.0 - Frequency of micturition Plan: Continue to follow with [facility] he is currently on a six-month schedule and due for labs prior to next visit. (8) Prostate cancer: Code(s): C61 - Malignant neoplasm of prostate Category: Medical Plan: See above (9) Asthma: Code(s): J45.909 - Unspecified asthma, uncomplicated Category: Medical Qualifiers: Asthma complication type: uncomplicated Asthma persistence: intermittent Asthma severity: mild Qualified Code(s): J45.20 - Mild intermittent asthma, uncomplicated Plan: Patient was seen by pulmonology recommending maintaining the current medication regimen. (10) Dysphagia: Code(s): R13.10 - Dysphagia, unspecified Category: Medical Plan: The patient reports ongoing and worsening dysphagia. A referral will be placed to gastroenterology for further evaluation and workup. The GI office is expected to call the patient to schedule an appointment. Previous barium swallow did not reveal any abnormalities and speech pathology not have recommendations aside from eating upright. (11) Hearing loss: Code(s): H91.90 - Unspecified hearing loss, unspecified ear Category: Medical Plan: Patient is encouraged to reach out to ear nose and throat to schedule an appointment. Plan This note was constructed using voice recognition software. While every effort has been made to ensure accuracy and news department intern, still areas may have been included sometimes these areas may affect the content or meeting of the given symptoms. Total time spent caring for the patient today was 30 minutes. This includes time spent before the visit reviewing the chart, time spent during the visit, and time spent after the visit and documentation. Patient was informed and verbally consented to the use of an ambient scribe for clinic note documentation during this visit. Orders: Orders Hemoglobin A1c Today R73.02 - Impaired glucose tolerance (oral) Comprehensive Met. Panel Today I25.10 - Atherosclerotic heart disease of deering coronary artery without angina pectoris, Z00.00 - Encounter for general adult medical examination without abnormal findings Vitamin B12 and Folate Today Z13.21 - Encounter for screening for nutritional disorder Lipid Panel Today E78.00 - Pure hypercholesterolemia, unspecified Complete Blood Count Auto Diff Today I25.10 - Atherosclerotic heart disease of de[place] coronary artery without angina pectoris, Z13.0 - Encounter for screening for diseases of the blood and blood-forming organs and certain disorders involving the immune mechanism TSH reflex Free T4 Today Z13.29 - Encounter for screening for other suspected endocrine disorder Vitamin D 25-OH Total Today Z13.21 - Encounter for screening for nutritional disorder Referrals Gastroenterology Referral R13.10 - Dysphagia, unspecified
== END 2025-10-03 09:24 | disposition home or self-care (01) ==
LOC: HO.HMCH 08:35
PROVIDERS: PCP Internal Medicine
DX: Z00.00 Encounter for general adult medical examination without abnormal findings (principal); I10 Essential (primary) hypertension; I25.10 Atherosclerotic heart disease of native coronary artery without angina pectoris; C61 Malignant neoplasm of prostate; I71.21 Aneurysm of the ascending aorta, without rupture; E78.00 Pure hypercholesterolemia, unspecified; R73.02 Impaired glucose tolerance (oral); N40.1 Benign prostatic hyperplasia with lower urinary tract symptoms; R35.0 Frequency of micturition; J45.20 Mild intermittent asthma, uncomplicated; R13.10 Dysphagia, unspecified

== ENCOUNTER → 2025-10-03 08:34 | Outpatient (BNVA) | payer OTHER, SELFPAY | PROVIDERS: PCP Internal Medicine | DX: Z00.00 Encounter for general adult medical examination without abnormal findings (principal); I10 Essential (primary) hypertension; R47.02 Dysphasia; I25.10 Atherosclerotic heart disease of native coronary artery without angina pectoris; I71.21 Aneurysm of the ascending aorta, without rupture; E78.00 Pure hypercholesterolemia, unspecified; R73.02 Impaired glucose tolerance (oral); N40.1 Benign prostatic hyperplasia with lower urinary tract symptoms; R35.0 Frequency of micturition; C61 Malignant neoplasm of prostate; J45.20 Mild intermittent asthma, uncomplicated; R13.10 Dysphagia, unspecified | CPT/HCPCS: 96127; 99397 ==